=== PATIENT | female | born 1980 | race Caucasian/White ===

== ENCOUNTER → 2017-09-22 11:42 | Outpatient (CLI) | payer OTHER, SELFPAY ==
[2017-09-22 16:15] LABS: ALB/GLOB Ratio 1.1 RATIO (0.9-2.4); AST(SGOT) 26 U/L (15-37); Alanine Aminotransfer ALT/SGPT 37 U/L (13-56); Albumin, Serum 3.7 g/dL (3.2-5.0); Alkaline Phosphatase 89 U/L (45-117); Anion Gap 9 (5-15); BUN 8 mg/dL (7-18); BUN/Creat Ratio 9.4 RATIO (10-20); Calcium,Total 8.9 mg/dL (8.5-10.1); Chloride 106 mmol/L (98-107); Creatinine, Serum 0.85 mg/dL (0.55-1.02); EST Glomerular Filtration Rate 79 mL/min (>60); Est Glom Filt Rate - Afr Amer 96 mL/min (>60); Globulin 3.5 g/dL (2.2-4.2); Glucose 93 mg/dL (74-106); Lipase 196 U/L (73-393); Potassium 4.2 mmol/L (3.5-5.1); Protein, Total 7.2 g/dL (6.4-8.2); Sodium Level 140 mmol/L (136-145)
== END ==
PROVIDERS: Family Provider Family Medicine; PCP Family Medicine; Visit Provider Family Medicine
DX: K57.92 Diverticulitis of intestine, part unspecified, without perforation or abscess without bleeding (principal); R19.7 Diarrhea, unspecified; R10.9 Unspecified abdominal pain
CPT/HCPCS: 36415; 80053; 83690

== ENCOUNTER → 2017-09-28 16:42 | Outpatient (CLI) | payer OTHER, SELFPAY ==
[2017-09-28 17:57] LABS: Absolute Lymphocyte Count 2.94 X10^3/ul (0.83-4.51); Absolute Neutrophil Count 4.1 X10^3/uL (2.0-7.7); Basophil# 0.02 X10^3/uL; Basophil% 0.3 % (0-1); Eosinophil# 0.12 X10^3/uL; Eosinophils% 1.5 % (0-5); Hematocrit 38.3 % (37-47); Hemoglobin 12.2 g/dl (12.0-15.0); Lymphocyte # 2.94 X10^3/ul (4.0); Lymphocyte % 37.2 % (19-41); Mean Corp Hgb Conc 31.9 g/gl (32-36); Mean Corpuscular Hgb 28.4 pg (27.0-32.0); Mean Corpuscular Volume 89.3 fL (81-99); Mean Platelet Vol. 10.5 fl (6.2-12.0); Monocyte# 0.68 X10^3/uL; Monocyte% 8.6 % (0-10); Neutrophil # 4.14 X10^3/uL (2.7-7.7); Neutrophil % 52.4 % (47-70); POSITIVE COUNT NO; POSITIVE DIFFERENTIAL NO; POSITIVE MORPHOLOGY NO; Platelet Count 245 K/mm3 (150-450); RBC Distribution Width CV 13.1 % (11.6-14.6); RBC Distribution Width SD 42.1 fl (35.1-43.9); Red Blood Count 4.29 M/mm3 (4.2-5.4); White Blood Count 7.9 K/mm3 (4.4-11.0)
== END ==
PROVIDERS: Family Provider Family Medicine; PCP Family Medicine; Visit Provider Family Medicine
DX: R19.7 Diarrhea, unspecified (principal); R10.9 Unspecified abdominal pain
CPT/HCPCS: 36415; 85025

== ENCOUNTER → 2017-10-03 14:14 | Outpatient (CLI) | payer OTHER, SELFPAY ==
--- NOTE | 2017-10-03 14:16 | CT_ITS ---
STUDY: CT ABDOMEN AND PELVIS WITH CONTRAST REASON FOR EXAM: Female, 37 years old. Abdominal pain. History of diverticulitis. RADIATION DOSAGE (If Supplied By Facility): CTDIvol = ( 18.72 ) mGy, DLP = ( 1316.17 ) mGycm TECHNIQUE: Transaxial images were obtained from the dome of the diaphragm to the symphysis pubis with oral contrast. 100ML ml of Isovue 300 contrast was administered. Sagittal and coronal images were reconstructed. Individualized dose optimization techniques were used for this CT. COMPARISON: Comparison is made with prior study dated June 21, 2016. FINDINGS: The visualized lung bases are unremarkable. The visualized portions of the heart are within normal limits. There is decreased attenuation of the liver consistent with steatosis. Normal gallbladder and extrahepatic biliary system. Normal spleen. Normal pancreas. Normal bilateral adrenal glands. Normal right kidney. Normal left kidney. Moderate sized hiatal hernia. Normal small intestine. There are multiple colonic diverticula consistent with diverticulosis. The appendix is visualized and appears normal. Normal abdominal aorta. Normal inferior vena cava. Normal retroperitoneum. Normal urinary bladder. There is evidence of prior bilateral tubal ligation. Normal abdominal wall. Normal osseous structures. CT/Abdomen/Pelvis WITH Contrast IMPRESSION: Fatty infiltration of the liver. Sigmoid diverticulosis. No acute inflammation is seen. Electronically Signed: Alphonso Mcgovern MD at 9:51 EST Tel [phone], Service support ,
== END ==
PROVIDERS: Family Provider Family Medicine; PCP Family Medicine; Visit Provider Family Medicine
DX: K57.30 Diverticulosis of large intestine without perforation or abscess without bleeding (principal); R10.9 Unspecified abdominal pain; R11.0 Nausea; R19.7 Diarrhea, unspecified
CPT/HCPCS: 74177; Q9967

== ENCOUNTER → 2017-11-25 16:26 | Outpatient (CLI) | payer MEDICAID, SELFPAY ==
--- NOTE | 2017-11-25 16:31 | RAD_ITS ---
STUDY: X-RAY CHEST REASON FOR EXAM: Female, 37 years old. Cough. Shortness of breath. TECHNIQUE: PA and lateral views of the chest. COMPARISON: January 13, 2017 FINDINGS: The lungs are clear and expanded. There is no demonstrated pleural abnormality. Normal size heart. Normal mediastinum and giuseppe. Normal visualized pulmonary arteries. Normal visualized aortic arch and descending thoracic aorta. Normal visualized thoracic spine. Normal visualized ribs, clavicles, and shoulders. There is no demonstrated abnormality of the visualized soft tissue structures of the upper abdomen. RAD/Chest PA and Lateral IMPRESSION: No acute cardiopulmonary process. Electronically Signed: Jyoti Dewitt MD at 17:08 EDT Tel , Service support ,
== END ==
PROVIDERS: Family Provider Family Medicine; PCP Family Medicine; Visit Provider Physician Assistant Surgical
DX: R06.02 Shortness of breath (principal); R06.00 Dyspnea, unspecified; R09.89 Other specified symptoms and signs involving the circulatory and respiratory systems
CPT/HCPCS: 71046

== ENCOUNTER → 2018-01-11 21:04 | Outpatient (CLI) | payer MEDICAID, SELFPAY | PROVIDERS: Family Provider Family Medicine; PCP Family Medicine; Visit Provider Family Medicine | DX: G47.30 Sleep apnea, unspecified (principal) | CPT/HCPCS: 95810 ==

== ENCOUNTER → 2018-09-28 09:11 | Outpatient (CLI) | payer OTHER, SELFPAY ==
[2018-10-04 11:08] LABS: HPV Reflexed? NOT INDICATED
== END ==
PROVIDERS: Family Provider Family Medicine; PCP Family Medicine; Visit Provider Obstetrics & Gynecology
DX: Z12.4 Encounter for screening for malignant neoplasm of cervix (principal)
CPT/HCPCS: 88175; G0145

== ENCOUNTER → 2018-10-04 08:33 | Outpatient (CLI) | payer OTHER, SELFPAY ==
--- NOTE | 2018-10-04 08:35 | RAD_ITS ---
STUDY: X-RAY - ESOPHAGUS (BARIUM SWALLOW) WITH FLUOROSCOPY REASON FOR EXAM: Female, 38 years old. Dysphagia for solids. TECHNIQUE: 17 view(s) of the esophagus were obtained following swallowing of barium. FLUOROSCOPY TIME (if supplied): (0:22) minutes/seconds COMPARISON: None. FINDINGS: There is no demonstrated esophageal foreign body. There is no demonstrated stricture or mucosal abnormality. There is a small hiatal hernia of the fundus of the stomach. The patient ingested a 12 mm tablet of barium without any difficulty. Normal visualized aortic arch and descending thoracic aorta. Normal visualized pulmonary parenchyma. Normal visualized osseous structures of the thorax. RAD/Esophagus Only IMPRESSION: Small sliding hiatal hernia without gastroesophageal reflux. Electronically Signed: Alphonso Mcgovern MD at 12:49 EST , Service support ,
== END ==
LOC: RAD 08:33
PROVIDERS: Family Provider Family Medicine; PCP Family Medicine; Referring Provider Internal Medicine Gastroenterology; Visit Provider Internal Medicine Gastroenterology
DX: R13.10 Dysphagia, unspecified (principal)
CPT/HCPCS: 74220

== ENCOUNTER → 2018-10-06 09:43 | Outpatient (CLI) | payer OTHER, SELFPAY ==
[2018-10-06 11:14] LABS: Estradiol 23.5 pg/mL; Follicle Stimulating Hormone 7.9 mIU/mL
[2018-10-12 12:46] LABS: Anti-Mullerian Hormone,Serum 0.445 ng/mL (.)
== END ==
LOC: LAB.FUTURE 09:43
PROVIDERS: Visit Provider Obstetrics & Gynecology
DX: Z30.09 Encounter for other general counseling and advice on contraception (principal); Z31.69 Encounter for other general counseling and advice on procreation; N92.6 Irregular menstruation, unspecified
CPT/HCPCS: 36415; 82670; 83001; 83516

== ENCOUNTER → 2019-07-31 12:41 | Outpatient (CLI) | payer OTHER, SELFPAY ==
[2019-06-26 15:10] VITALS: BMI 44.5
--- NOTE | 2019-08-02 07:45 | PFT ---
INTRODUCTION: The patient is a 38-year-old female that presents for pulmonary function studies secondary to a diagnosis of shortness of breath. Respiratory therapy reports good patient effort. Bronchodilators were used during testing. INTERPRETATION: Forced expiration spirometry demonstrates no evidence of a large airways obstructive ventilatory defect. Although there was no significant response to aerosolized bronchodilators, based upon strict ATS criteria, the patient did have a rather robust mid flow bronchodilator response. Spirograms are of good quality and plateau normally. Body plus tomography was performed and reveals an elevated TLC to 116% of predicted. Diffusing capacity by single breath CO is at the lower limits of normal. IMPRESSION: Subtle findings of possible small airways disease with significant mid flow bronchodilator response.
== END ==
PROVIDERS: Family Provider Family Medicine; PCP Family Medicine; Referring Provider Nurse Practitioner Acute Care; Visit Provider Nurse Practitioner Acute Care
DX: R06.02 Shortness of breath (principal)
CPT/HCPCS: 94060; 94726; 94729

== ENCOUNTER → 2019-07-31 20:00 | Outpatient (CLI) | payer OTHER, SELFPAY ==
[2019-06-26 15:10] VITALS: BMI 44.5
== END ==
PROVIDERS: Family Provider Family Medicine; PCP Family Medicine; Referring Provider Nurse Practitioner Acute Care; Visit Provider Nurse Practitioner Acute Care
DX: G47.33 Obstructive sleep apnea (adult) (pediatric) (principal)
CPT/HCPCS: 95811

== ENCOUNTER → 2019-08-10 15:23 | Outpatient (CLI) | payer OTHER, SELFPAY ==
[2019-08-02 15:39] VITALS: BMI 44.5
--- NOTE | 2019-08-10 15:24 | ECHOD_ITS ---
Reason For Study: Dyspnea/SOB Procedure This was a 2D Doppler, Color Flow transthoracic echocardiogram. Exam performed in department. Left Ventricle Normal size and thickness. The estimated ejection fraction is 75 %. Normal diastology for age. No regional wall motion abnormalities noted. Right Ventricle Normal size and thickness. Normal systolic function. Atria Normal left atrium. Normal right atrium. Normal atrial septum. Mitral Valve The mitral valve is structurally normal. No prolapse or stenosis seen. Tricuspid Valve Normal tricuspid valve. Trivial tricuspid valve insufficiency. Unable to estimate RV systolic pressure due to insufficient tricuspid regurgitant envelope. Aortic Valve Normal aortic valve. Trisinus/trileaflet aortic valve. Pulmonic Valve Normal pulmonic valve. Great Vessels Normal aortic root. Normal arch. Normal inferior vena cava. Inferior vena cava collapse with sniff. Pericardium/Pleural No pericardial effusion. MMode/2D Measurements & Calculations LVIDd: 3.9 cm IVSd: 1.0 cm Ao root diam: 3.6 cm LVIDs: 2.0 cm LVPWd: 1.1 cm LA dimension: 3.4 cm FS: 47.8 % LAV(MOD-bp): 65.9 ml LA A4 area: 21.0 cm2 RA A4 area: 12.3 cm2 LAV(MOD-bp) Indexed: 26.8 ml/m2 LAV(MOD-sp2): 61.1 ml LAV(MOD-sp4): 67.1 ml Time Measurements MV dec time: 0.23 sec Doppler Measurements & Calculations MV E max walt: 99.8 cm/sec Lat Peak E' Walt: 14.5 cm/sec Med Peak E' Walt: 10.6 cm/sec MV A max walt: 78.6 cm/sec E/E' lat: 6.9 E/E' med: 9.4 MV E/A: 1.3 MV V2 max: 111.7 cm/sec MV P1/2t max walt: 116.5 cm/sec Ao V2 max: 111.7 cm/sec MV max P.0 mmHg MV P1/2t: 115.8 msec Ao max P.0 mmHg MV V2 mean: 64.1 cm/sec MV dec slope: 294.8 cm/sec2 Ao V2 mean: 75.8 cm/sec MV mean P.9 mmHg MVA(P1/2t): 1.9 cm2 Ao mean P.6 mmHg MV V2 VTI: 30.9 cm Ao V2 VTI: 23.2 cm LV V1 max: 110.6 cm/sec PA V2 max: 104.0 cm/sec LV V1 max P.9 mmHg LV V1 mean P.4 mmHg LV V1 mean: 73.5 cm/sec LV V1 VTI: 23.5 cm Interpretation Summary The estimated ejection fraction is 75 %. Trivial tricuspid valve insufficiency. Unable to estimate RV systolic pressure due to insufficient tricuspid regurgitant envelope. Normal diastology for age. There is no comparison study available. Ordering Physician: Aditi Zamorano Referring Physician: Fitz Casillas Performed By: Chino Foster RCS
== END ==
PROVIDERS: Family Provider Family Medicine; PCP Family Medicine; Referring Provider Nurse Practitioner Acute Care; Visit Provider Nurse Practitioner Acute Care
DX: R06.02 Shortness of breath (principal)
CPT/HCPCS: 93306

== ENCOUNTER → 2019-08-22 14:03 | Outpatient (CLI) | payer OTHER, SELFPAY ==
[2019-08-02 15:39] VITALS: BMI 44.5
== END ==
PROVIDERS: Family Provider Family Medicine; PCP Family Medicine; Referring Provider Nurse Practitioner Acute Care; Visit Provider Nurse Practitioner Acute Care
DX: G47.33 Obstructive sleep apnea (adult) (pediatric) (principal)

== ENCOUNTER → 2019-10-24 15:31 | Outpatient (CLI) | payer OTHER, SELFPAY ==
[2019-10-24 14:51] VITALS: BMI 44.5
[2019-10-24 16:13] LABS: Absolute Neutrophil Count 4.2 X10^3/uL (2.0-7.7); Basophil# 0.02 X10^3/uL; Basophil% 0.2 % (0-1); Eosinophil# 0.12 X10^3/uL; Eosinophils% 1.5 % (0-5); Hematocrit 37.6 % (37-47); Hemoglobin 12.2 g/dL (12.0-15.0); Lymphocyte % 38.9 % (19-41); Mean Corp Hgb Conc 32.4 g/dL (32-36); Mean Corpuscular Hgb 28.9 pg (27.0-32.0); Mean Corpuscular Volume 89.1 fL (81-99); Mean Platelet Vol. 9.7 fl (6.2-12.0); Monocyte# 0.67 X10^3/uL; Monocyte% 8.2 % (0-10); NRBC Flagged by Analyzer 0 % (0-5); Neutrophil # 4.19 X10^3/uL (2.7-7.7); Platelet Count 259 K/mm3 (150-450); RBC Distribution Width CV 12.7 % (11.6-14.6); RBC Distribution Width SD 41.5 fl (35.1-43.9); Red Blood Count 4.22 M/mm3 (4.2-5.4); White Blood Count 8.2 K/mm3 (4.4-11.0)
[2019-10-24 16:32] LABS: Thyroid Stim Hormone (TSH) 1.03 uIU/mL (0.358-3.74)
[2019-10-29 11:54] LABS: HPV APTIMA, High Risk Negative (Negative)
[2019-10-29 20:05] LABS: Vitamin D 1,25-Dihydroxy 19.3 pg/mL (19.9-79.3)
== END ==
PROVIDERS: PCP Family Medicine; Referring Provider Nurse Practitioner Women's Health; Visit Provider Nurse Practitioner Women's Health
DX: R53.83 Other fatigue (principal); Z12.4 Encounter for screening for malignant neoplasm of cervix
CPT/HCPCS: 36415; 82652; 84443; 85025; 87624; 88175; G0145

== ENCOUNTER → 2019-10-29 14:53 | Outpatient (CLI) | payer OTHER, SELFPAY ==
[2019-10-24 14:51] VITALS: BMI 44.5
--- NOTE | 2019-10-29 14:54 | BI_ITS ---
MAMMOGRAPHY - BILATERAL SCREENING REASON FOR EXAM: Female, 39 years old. Routine annual screening examination. PERTINENT HISTORY: Grandmother with breast cancer. TECHNIQUE: Digital bilateral breast elvira (3D mammographic acquisition) in the CC and MLO projections. 2-D mediolateral oblique (MLO) and craniocaudad (CC) views of both breasts were obtained. CAD: Full Field Digital Mammography with Computer Added Detection was performed. COMPARISON: Comparison is made with prior study of January 24, 2015. FINDINGS: Breast Composition: The breasts are heterogeneously dense, which may obscure small masses. There are no dominant masses or suspicious calcifications. No other significant abnormalities are identified. There has been no significant change since the prior study. BI/SCREEN MAMM (CAD) W/ELVIRA BILAT IMPRESSION: Stable bilateral screening mammogram. Yearly follow-up mammogram recommended. (A) ASSESSMENT CATEGORY: BIRADS Category 1: Negative. A letter regarding these results will be sent to the patient by the facility within 30 days. Approximately 10% of breast cancers are not detected by mammography. A normal mammogram should not delay biopsy of a clinically suspicious abnormality. [id number] Electronically Signed: Alphonso Mcgovern, at 8:06 EDT , Service support ,
== END ==
PROVIDERS: PCP Family Medicine; Referring Provider Nurse Practitioner Women's Health; Visit Provider Nurse Practitioner Women's Health
DX: Z12.31 Encounter for screening mammogram for malignant neoplasm of breast (principal)
CPT/HCPCS: 77063; 77067

== ENCOUNTER 2019-12-13 18:03 | Emergency (ER) | payer OTHER, SELFPAY ==
[2019-10-24 14:51] VITALS: BMI 44.5
[2019-12-13 18:04] VITALS: BP 163/96; PULSE 99; RESP 16; TEMP 36.7; O2SAT 96; BMI 45.1
--- NOTE | 2019-12-13 18:33 | ED.DCSUM_ITS ---
History of Present Illness Chief Complaint: Wound Check Informant: Patient Onset: Yesterday Narrative: Patient had reversal of prior tubal ligation performed on November 21 in [place]. Patient state her wounds have been healing well. Yesterday she rolled over in bed and felt a pop along her incision. She is had some clear drainage from the wound and wanted to be sure it was not infected. She denies fever or chills. - Past Medical History (1) Asthma Status: Chronic (2) ZULAY (obstructive sleep apnea) Status: Chronic (3) Asthma Status: Chronic (4) Hx of section Status: Resolved Past Medical History - Allergies and Home Meds Allergies/Adverse Reactions: Allergies cephalexin [From Keflex] Allergy (Verified 12/13/19 18:10) Hives tree nut Allergy (Verified 12/13/19 18:08) Anaphylaxis venom-honey bee Allergy (Verified 12/13/19 18:08) Anaphylaxis meperidine HCl [From Demerol] Adverse Reaction (Verified 12/13/19 18:08) Unknown Primary Care Physician: Fitz Casillas MD [Primary Care Provider] - Prior records reviewed: Yes Lives: With Family Smoking Status: Current every day smoker Review of Systems General: Denies: Chills, Fever Eyes: Denies: Visual changes - bilaterally ENT: Denies: Bilateral ear pain Cardiovascular: Denies: Chest pain Respiratory: Denies: Dyspnea Gastrointestinal: Denies: Abdominal pain, Nausea, Vomiting, Diarrhea Genitourinary: Denies: Dysuria Skin: Reports: Wounds Neurological: Denies: Headache Allergy: Denies: Uticaria Physical Exam Vital Signs/Narrative: Vital Signs Temp Pulse Resp BP Pulse Ox 12/13/19 18:04 98.1 F 99 16 163/96 H 96 Inital Vital Signs reviewed: Yes General: Well nourished, Well developed Head: Normocephalic ENT: Moist mucous membranes Neck: Supple Cardiovascular: Regular rate, Regular rhythm Respiratory: No distress, CTA bilaterally Abdomen: Soft, Nontender, - - Is worse lower abdominal surgical wound. On the left side of this is a small area of wound dehiscence, measuring approximate 1/2 cm in length. There is serosanguineous drainage from the wound. No surrounding erythema or tenderness. No palpable masses. Extremities: Nontender Neurological: Alert, Oriented x3 Diagnostic/Tx/Re-eval - Medical Decision Making Stat ultrasound was performed myself. I do not see any collection of fluid in the tissues around this area. Fluid that is draining is serosanguineous at this time. Patient be covered with doxycycline and she does have Keflex and penicillin allergy. She will follow-up with her [facility] AIDE or return for any worsening symptoms or concerns. ED Disposition - Plan for ED Patient: Disposition: Home or Assisted Living Diagnosis: Wound dehiscence Instructions: ED Wound Check Post Op No Infec Prescriptions: Doxycycline 100 mg PO BID #20 cap Transmission Status: Pending to [facility] Referrals: Liliana Newell MD [STAFF PHYSICIAN] - 1 Week
[2019-12-13] MEDS: Doxycycline 100 MG CAPSULE PO (18:44)
== END 2019-12-13 19:06 | disposition home or self-care (01) ==
LOC: ED 18:47
PROVIDERS: Emergency Provider Emergency Medicine; PCP Family Medicine
DX: T81.30XA Disruption of wound, unspecified, initial encounter (principal); G47.33 Obstructive sleep apnea (adult) (pediatric); J45.909 Unspecified asthma, uncomplicated; F17.200 Nicotine dependence, unspecified, uncomplicated
CPT/HCPCS: 99283

== ENCOUNTER → 2019-12-21 13:52 | Outpatient (CLI) | payer OTHER, SELFPAY ==
[2019-12-21 12:20] VITALS: BMI 44.3
[2019-12-21 15:15] LABS: hCG Titer Quant., Serum 46 mIU/mL (1-3)
== END ==
PROVIDERS: PCP Family Medicine; Visit Provider Obstetrics & Gynecology
DX: N91.2 Amenorrhea, unspecified (principal)
CPT/HCPCS: 36415; 84702

== ENCOUNTER → 2019-12-24 15:57 | Outpatient (CLI) | payer OTHER, SELFPAY ==
[2019-12-21 12:20] VITALS: BMI 44.3
[2019-12-24 17:09] LABS: hCG Titer Quant., Serum 109 mIU/mL (1-3)
== END ==
PROVIDERS: PCP Family Medicine; Referring Provider Obstetrics & Gynecology; Visit Provider Obstetrics & Gynecology
DX: N91.2 Amenorrhea, unspecified (principal); N97.0 Female infertility associated with anovulation
CPT/HCPCS: 36415; 84702

== ENCOUNTER 2020-01-04 12:30 | Outpatient (RCR) | payer OTHER, SELFPAY ==
[2019-12-21 12:20] VITALS: BP 163/88; PULSE 72; RESP 16; TEMP 36.9; BMI 44.3
--- NOTE | 2019-12-21 16:00 | HP.PCM_ITS ---
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 Current Visit: Yes Code(s): T14.8XXA - Other injury of unspecified body region, initial encounter (2) Cellulitis, abdominal wall Status: Acute Current Visit: Yes Code(s): L03.311 - Cellulitis of abdominal wall (3) Seroma after procedure Status: Chronic Current Visit: Yes (4) Status: Acute Current Visit: Yes Qualifiers: Weeks of gestation: less than 8 weeks Qualified Code(s): Z3A.01 - Less than 8 weeks gestation of Code(s): Z34.90 - Encounter for supervision of normal , unspecified, unspecified trimester (5) Hx of section Status: Chronic Current Visit: Yes Code(s): Z98.891 - History of uterine scar from previous surgery (6) Obesity Status: Acute Current Visit: Yes Qualifiers: Obesity classification: adult class 3 (BMI >= 40) Serious obesity comorbidity presence: without serious comorbidity Body mass index: BMI 40.0- 44.9 Code(s): E66.9 - Obesity, unspecified History of Present Illness Date of Service: 12/21/19 Chief Complaint: surgical wound dehiscence left lower abdomen s/p tubal ligation reversal with seroma History of Wound: Jing is a very nice 39 yo woman that presents to the wound care center for evaluation and treatment of a nonhealing surgical wound dehiscence s/p tubal ligation reversal on November 22, 2019 in [place]. She was healing well until December 10, 2019 when she noticed a popping sensation when she rolled over in bed and noted the wound became a little red and swollen and tender and then opened the following day and started draining serous drainage. She went to the [facility] ER and was evaluated on December 13, 2019 and was started on doxycycline by the ER physician. They did an US of the lower abdomen looking for abscess but did not appreciate any fluid collection. She contacted her PCP who referred her to the wound center for evaluation and treatment on December 14, 2019. She has been using a maxi pad for dressing but has had a difficult time keeping a dressing in place. She was letting it open to air at night. There is a moderate amount of serous drainage but has been no odor or erythema or fever or chills or purulent drainage noted. She tested positive for on December 17, 2019 and stopped the doxycycline due to the potential teratogenic effects on and contacted her PCP regarding possible change of antibiotics and had not been contacted by wound center regarding referral. Her PCP office called wound center today December 21, 2019 to check on referral and unfortunately referral was not received but they scheduled her to be seen today for evaluation. She has not had any vaginal bleeding or cramping and has not taken any medication since finding out that she was . 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 (Chronic) Seroma after procedure (Chronic) Cancer (Chronic) melanoma SOB (shortness of breath) (Chronic) Fatigue (Chronic) Asthma (Chronic) Hx of section (Chronic) Asthma (Chronic) ZULAY (obstructive sleep apnea) (Chronic) Allergies/Adverse Reactions: Allergies cephalexin [From Keflex] Allergy (Verified 12/13/19 18:10) Hives tree nut Allergy (Verified 12/13/19 18:08) Anaphylaxis venom-honey bee Allergy (Verified 12/13/19 18:08) Anaphylaxis meperidine HCl [From Demerol] Adverse Reaction (Verified 12/13/19 18:08) Unknown Home Medications: Ambulatory Orders Medication Instructions Recorded albuterol sulfate 90 mcg/actuation 2 puff INHALATION Q4H PRN #18 g 08/02/19 aerosol inhaler biotin 1,000 mcg chewable tablet 1,000 mcg PO DAILY 10/24/19 ferrous fumarate 89 mg (29 mg 89 mg PO TID 10/24/19 iron) tablet magnesium 30 mg tablet 30 mg PO DAILY 10/24/19 mecobalamin (vitamin B12) 1,000 1,000 mcg PO DAILY 10/24/19 mcg chewable tablet pantoprazole 40 mg tablet,delayed 40 mg PO DAILY 10/24/19 release vit 112-iron 3.33 3 tab PO DAILY 10/24/19 mg-folate 0.33 [id number] chew tablet acyclovir 400 mg tablet 400 mg PO DAILY #90 tab 10/29/19 Doxycycline 100 mg PO BID #20 cap 12/13/19 - Family History Maternal Family History: Family History (Last Reviewed 10/24/19 @ 14:51 by Jolly Mcdonnell) Father Sleep apnea No pertinent history Paternal Family History: Family History (Last Reviewed 10/24/19 @ 14:51 by Jolly Mcdonnell) Father Sleep apnea No pertinent history Lives: Spouse/ Significant Other Smoking Status: Former smoker Tobacco Use: Non-smoker Alcohol: None Drugs: None Review of Systems Constitutional: Denies: Chills, Fever, Weight Change Eyes: Denies: Pain, Vision Change HEENT: Denies: Difficulty Hearing, Difficulty Swallowing, Sinus Congestion Cardiovascular: Denies: Chest Pain, Palpitations Respiratory: Denies: Cough, Shortness of Breath Gastrointestinal: Denies: Abdominal Pain, Diarrhea, Nausea, Vomiting Genitourinary: Denies: Dysuria, Hematuria Gynecological: Denies: Vaginal bleeding Skin: Reports: Wounds Endocrine: Denies: Heat/ Cold Intolerance, Polydipsia, Polyuria Hematologic/ Lymphatic: Denies: Easy Bruising, Easy Bleeding - Physical Exam Vital Signs Temp Pulse Resp BP 98.5 F 72 16 163/88 H 12/21/19 12:20 12/21/19 12:20 12/21/19 12:20 12/21/19 12:20 General: Alert, Oriented x3, Cooperative, No apparent distress HEENT: Atraumatic, Normocephalic Oral: Moist Mucosa Neck: Supple Lungs: Clear to auscultation Cardiovascular: Regular rate, Regular Rhythm Abdomen: Soft, Non Tender, Obese Extremities: No edema Skin: Ulcer/ Wound Wound Measurements and Assessment WC - Nurse 1 - General Ulcer Measurement Start: 12/21/19 12:17 Freq: Status: Active Protocol: Activity Type Activity Date Activity User E-Sign Co-Sign Detail Recorded Client Recorded Date Recorded By Document 12/21/19 12:20 MW [id number] 12/21/19 12:31 MW 12/21/19 12:20 Wound Center Nurse 1 [Ulcer Assessment] #1 Lower Abd -Combined with other wound No -Current Size (cm) - Length 0.7 -Current Size (cm) - Width 1.4 -Current Size (cm) - Depth 0.1 -Total Square Cm 0.98 -Date of Last Picture (Recall this 12/21/19 field) -Photo Taken Yes -Epithelialization None Present -Tunneling No -Undermining/Tunneling No -Circular Undermining No -Exudate Amt Large -Exudate Type Serosanguineous -Wound Margin Flat & Intact -Granulation Amt Large (67-100%) -Granulation Quality Red -Slough/Fibrin Yes -Necrosis Amt Small (1-33%) -Necrotic Tissue Type Adherent Slough -Structure Exposed N/A -Texture (Paty-wound Skin Appearance) Assessed, Scarring -Moisture (Paty-wound Skin Appearance No Abnormality, ) Assessed -Color (Paty-wound Skin Appearance) No Abnormality, Assessed -Temperature (Paty-wound Skin No Abnormality Appearance) (Pt Warm) -Tenderness on Palpation (Paty-wound Yes Skin Appearance) -Ulcer Cleansing Rinsed/ Irrigated with Saline -Foul Odor after Cleansing No -Anesthetic Used 4% Lidocaine Solution [Edema Assessment] -Lower Limb Edema Present No Psych/Mental Status: Normal Affect, Appropriate Debridement Note post-debridement measurements Length 0.5 cm Width 1.3 cm Depth 2.0 cm Total square cm 0.65 cm^2 Wound debrided: left lower abdomen Laterality: Right Type of Debridement: Excisional debridement Anesthesia Used: 4% Lidocaine Solution, 5% Lidocaine Gel Depth: Down to and including healthy tissue, in the subcutaneous layer Percentage of wound debrided: 100 Instrument Used: 3mm curette, Forceps Tissue Removed: Low slough, devitalized tissue, undissolved sutures Severity: Fat Layer Exposed Amount of bleeding with debridement: Mild Bleeding Controlled with: Compression and gauze Patient tolerated procedure well Assessment/Plan Active Problems (Last Reviewed 10/24/19 @ 14:51 by Jolly Mcdonnell) 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 Plan: Jing's wound was evaluated and debrided today. 2 suture pieces that were visible and had not dissolved were removed. A wound culture was performed and will treat based upon results. There was no obvious signs of infection and the drainage was serous in nature. Will pack the wound with Aquacel extra and cover with gauze and an ABD and change once-twice daily based upon the amount of drainage and if the bandage is soiled. Encouraged to call sooner if increased drainage, odor, fever or chills develop. Will follow up in 1 week for re- evaluation.
[2019-12-28 12:18] VITALS: BP 134/83; PULSE 84; RESP 18; TEMP 36.7; BMI 44.3
--- NOTE | 2019-12-28 17:54 | PCM.WC.PN ---
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 Current Visit: Yes Code(s): T14.8XXA - Other injury of unspecified body region, initial encounter (2) Cellulitis, abdominal wall Status: Acute Current Visit: Yes Code(s): L03.311 - Cellulitis of abdominal wall (3) Seroma after procedure Status: Chronic Current Visit: Yes (4) Status: Acute Current Visit: Yes Qualifiers: Weeks of gestation: less than 8 weeks Qualified Code(s): Z3A.01 - Less than 8 weeks gestation of Code(s): Z34.90 - Encounter for supervision of normal , unspecified, unspecified trimester (5) Hx of section Status: Chronic Current Visit: Yes Code(s): Z98.891 - History of uterine scar from previous surgery (6) Obesity Status: Chronic Current Visit: Yes Qualifiers: Obesity type: unspecified obesity type Obesity classification: adult class 3 (BMI >= 40) Serious obesity comorbidity presence: without serious comorbidity Body mass index: BMI 40.0-44.9 Qualified Code(s): E66.01 - Morbid (severe) obesity due to excess calories; Z68.41 - Body mass index (BMI) 40.0-44.9, adult Code(s): E66.9 - Obesity, unspecified Type of Wound Date of Service: 12/28/19 Chief Complaint: surgical wound dehiscence left lower abdomen s/p tubal ligation reversal with seroma History of Wound: Jing is a very nice 39 yo woman that presents to the wound care center for evaluation and treatment of a nonhealing surgical wound dehiscence s/p tubal ligation reversal on November 22, 2019 in [place]. She was healing well until December 10, 2019 when she noticed a popping sensation when she rolled over in bed and noted the wound became a little red and swollen and tender and then opened the following day and started draining serous drainage. She went to the [facility] ER and was evaluated on December 13, 2019 and was started on doxycycline by the ER physician. They did an US of the lower abdomen looking for abscess but did not appreciate any fluid collection. She contacted her PCP who referred her to the wound center for evaluation and treatment on December 14, 2019. She has been using a maxi pad for dressing but has had a difficult time keeping a dressing in place. She was letting it open to air at night. There is a moderate amount of serous drainage but has been no odor or erythema or fever or chills or purulent drainage noted. She tested positive for on December 17, 2019 and stopped the doxycycline due to the potential teratogenic effects on and contacted her PCP regarding possible change of antibiotics and had not been contacted by wound center regarding referral. Her PCP office called wound center today December 21, 2019 to check on referral and unfortunately referral was not received but they scheduled her to be seen today for evaluation. She has not had any vaginal bleeding or cramping and has not taken any medication since finding out that she was . Progress of Wound: Jing is here for follow up of a surgical wound dehiscence. She is tolerating Aquacel extra packing into the wound and has noticed a little less drainage. Her wound culture was positive for anaerobic bacteria. She denies any increased drainage, odor, pain or erythema. - Physical Exam Vital Signs Temp Pulse Resp BP 98.0 F 84 18 134/83 H 12/28/19 12:18 12/28/19 12:18 12/28/19 12:18 12/28/19 12:18 General: Alert, Oriented x3, Cooperative, No apparent distress HEENT: Atraumatic, Normocephalic Oral: Moist Mucosa Neck: Supple Abdomen: Soft, Non Tender, Obese Skin: Ulcer/ Wound Wound Measurements and Assessment WC - Nurse 1 - General Ulcer Measurement Start: 12/21/19 12:17 Freq: Status: Active Protocol: Activity Type Activity Date Activity User E-Sign Co-Sign Detail Recorded Client Recorded Date Recorded By Document 12/28/19 12:18 MW [id number] 12/28/19 12:25 MW 12/28/19 12:18 Wound Center Nurse 1 [Ulcer Assessment] #1 Lower Abd -Combined with other wound No -Current Size (cm) - Length 0.6 -Current Size (cm) - Width 1.0 -Current Size (cm) - Depth 0.1 -Total Square Cm 0.60 -Photo Taken No -Epithelialization Small 1-33% -Tunneling No -Undermining/Tunneling No -Circular Undermining No -Exudate Amt Small -Exudate Type Serous -Wound Margin Flat & Intact -Granulation Amt Large (67-100%) -Granulation Quality Marcus -Slough/Fibrin Yes -Necrosis Amt Small (1-33%) -Necrotic Tissue Type Adherent Slough -Structure Exposed N/A -Texture (Paty-wound Skin Appearance) Assessed, Scarring -Moisture (Paty-wound Skin Appearance No Abnormality, ) Assessed -Color (Paty-wound Skin Appearance) No Abnormality, Assessed -Temperature (Paty-wound Skin No Abnormality Appearance) (Pt Warm) -Tenderness on Palpation (Paty-wound Yes Skin Appearance) -Ulcer Cleansing Rinsed/ Irrigated with Saline -Foul Odor after Cleansing No -Anesthetic Used 5% Lidocaine Gel [Edema Assessment] -Lower Limb Edema Present No WC - Nurse 2 - General Ulcer CM Notes Start: 12/21/19 12:17 Freq: Status: Active Protocol: Activity Type Activity Date Activity User E-Sign Co-Sign Detail Recorded Client Recorded Date Recorded By Document 12/28/19 13:29 MW [id number] 12/28/19 13:38 MW 12/28/19 13:29 Wound Center Nurse 2 [Procedure/Treatment] #1 Lower Abd -Time 13:30 -Correct Patient Yes -Correct Side, Site, Position Yes -Correct Procedure Yes -Procedure Performed Yes -Type of Procedure Debridement -Clinical Debridement Subcutaneous -Post Debridement Size (cm) - Length 0.5 -Post Debridement Size (cm) - Width 0.7 -Post Debridement Size (cm) - Depth 1.7 -Total Square Cm 0.35 -Wound/Ulcer Outcome Not Healed -Ulcer Cleansing Rinsed/ Irrigated with Saline -Foul Odor after Cleansing No -Bioengineered Tissue No -Bleeding Controlled with Pressure -Offloading No -Treatment Response Procedure Tolerated Well [See Physician Procedure note for Specifics] Pain Scale: 0-10 Numeric [Pain] -Is Patient Pain Free? Yes Psych/Mental Status: Normal Affect, Appropriate Debridement Note Post-Debridement Measurements/Treatment WC - Nurse 2 - General Ulcer CM Notes Start: 12/21/19 12:17 Freq: Status: Active Protocol: Activity Type Activity Date Activity User E-Sign Co-Sign Detail Recorded Client Recorded Date Recorded By Document 12/21/19 16:25 DV [id number] 12/21/19 16:30 DV Document 12/28/19 13:29 MW [id number] 12/28/19 13:38 MW 12/21/19 12/28/19 16:25 13:29 Wound Center Nurse 2 #1 Lower Abd -Time 16:25 13:30 -Correct Patient Yes Yes -Correct Side, Site, Position Yes Yes -Correct Procedure Yes Yes -Procedure Performed Yes Yes -Type of Procedure Debridement Debridement -Clinical Debridement Subcutaneous Subcutaneous -Post Debridement Size (cm) - Length 0.5 0.5 -Post Debridement Size (cm) - Width 2.0 0.7 -Post Debridement Size (cm) - Depth 2.0 1.7 -Total Square Cm 1.00 0.35 -Wound/Ulcer Outcome Not Healed Not Healed -Ulcer Cleansing Rinsed/ Rinsed/ Irrigated with Irrigated with Saline Saline -Foul Odor after Cleansing No No -Bioengineered Tissue No No -Bleeding Controlled with Pressure Pressure -Offloading No No -Treatment Response Procedure Procedure Tolerated Well Tolerated Well Pain Scale: 0-10 Numeric Is Patient Pain Free? 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 Plan: Jing's wound was evaluated and debrided today. Will start Metronidazole for treatment of anaerobic bacteria. Will continue to pack the wound with Aquacel extra and cover with gauze and an ABD and change once-twice daily based upon the amount of drainage and if the bandage is soiled. Encouraged to call sooner if increased drainage, odor, fever or chills develop. Will follow up in 1 week for re-evaluation.
[2020-01-04 15:40] VITALS: BP 157/64; PULSE 76; RESP 16; TEMP 36.4; BMI 44.3
--- NOTE | 2020-01-04 19:02 | PCM.WC.PN ---
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 Code(s): T14.8XXA - Other injury of unspecified body region, initial encounter (2) Cellulitis, abdominal wall Status: Acute Code(s): L03.311 - Cellulitis of abdominal wall (3) Seroma after procedure Status: Chronic (4) Status: Acute Qualifiers: Weeks of gestation: less than 8 weeks Qualified Code(s): Z3A.01 - Less than 8 weeks gestation of Code(s): Z34.90 - Encounter for supervision of normal , unspecified, unspecified trimester (5) Hx of section Status: Chronic Code(s): Z98.891 - History of uterine scar from previous surgery (6) Obesity Status: Chronic Qualifiers: Obesity type: unspecified obesity type Obesity classification: adult class 3 (BMI >= 40) Serious obesity comorbidity presence: without serious comorbidity Body mass index: BMI 40.0-44.9 Qualified Code(s): E66.01 - Morbid (severe) obesity due to excess calories; Z68.41 - Body mass index (BMI) 40.0-44.9, adult Code(s): E66.9 - Obesity, unspecified Type of Wound Date of Service: 01/11/20 Chief Complaint: surgical wound dehiscence left lower abdomen s/p tubal ligation reversal with seroma History of Wound: Jing is a very nice 39 yo woman that presents to the wound care center for evaluation and treatment of a nonhealing surgical wound dehiscence s/p tubal ligation reversal on November 22, 2019 in [place]. She was healing well until December 10, 2019 when she noticed a popping sensation when she rolled over in bed and noted the wound became a little red and swollen and tender and then opened the following day and started draining serous drainage. She went to the [facility] ER and was evaluated on December 13, 2019 and was started on doxycycline by the ER physician. They did an US of the lower abdomen looking for abscess but did not appreciate any fluid collection. She contacted her PCP who referred her to the wound center for evaluation and treatment on December 14, 2019. She has been using a maxi pad for dressing but has had a difficult time keeping a dressing in place. She was letting it open to air at night. There is a moderate amount of serous drainage but has been no odor or erythema or fever or chills or purulent drainage noted. She tested positive for on December 17, 2019 and stopped the doxycycline due to the potential teratogenic effects on and contacted her PCP regarding possible change of antibiotics and had not been contacted by wound center regarding referral. Her PCP office called wound center today December 21, 2019 to check on referral and unfortunately referral was not received but they scheduled her to be seen today for evaluation. She has not had any vaginal bleeding or cramping and has not taken any medication since finding out that she was . Progress of Wound: Jing is here for follow up of a surgical wound dehiscence. She is tolerating Aquacel extra packing into the wound and has noticed a less drainage. Her wound culture was positive for anaerobic bacteria and she is tolerating treatment with Flagyl. She has 3 days left. She denies any increased drainage, odor, pain or erythema. - Physical Exam Vital Signs Temp Pulse Resp BP 97.6 F L 76 16 157/64 H 01/04/20 15:40 01/04/20 15:40 01/04/20 15:40 01/04/20 15:40 General: Alert, Oriented x3, Cooperative, No apparent distress HEENT: Atraumatic, Normocephalic Oral: Moist Mucosa Abdomen: Obese Skin: Ulcer/ Wound Wound Measurements and Assessment WC - Nurse 1 - General Ulcer Measurement Start: 12/21/19 12:17 Freq: Status: Active Protocol: Activity Type Activity Date Activity User E-Sign Co-Sign Detail Recorded Client Recorded Date Recorded By Document 01/04/20 15:40 [facility] [id number] 01/04/20 15:45 [facility] 01/04/20 15:40 Wound Center Nurse 1 [Ulcer Assessment] #1 Lower Abd -Combined with other wound No -Current Size (cm) - Length 0.3 -Current Size (cm) - Width 0.6 -Current Size (cm) - Depth 0.2 -Total Square Cm 0.18 -Epithelialization None Present -Tunneling No -Undermining/Tunneling No -Circular Undermining No -Exudate Amt Small -Exudate Type Serous -Wound Margin Flat & Intact -Granulation Amt Large (67-100%) -Granulation Quality Pale,Red -Slough/Fibrin Yes -Necrosis Amt Small (1-33%) -Necrotic Tissue Type Adherent Slough -Texture (Paty-wound Skin Appearance) Assessed, Scarring -Moisture (Paty-wound Skin Appearance Assessed ) -Color (Paty-wound Skin Appearance) Assessed -Temperature (Paty-wound Skin No Abnormality Appearance) (Pt Warm) -Tenderness on Palpation (Paty-wound No Skin Appearance) -Ulcer Cleansing Rinsed/ Irrigated with Saline -Foul Odor after Cleansing No -Anesthetic Used 5% Lidocaine Gel WC - Nurse 2 - General Ulcer CM Notes Start: 12/21/19 12:17 Freq: Status: Active Protocol: Activity Type Activity Date Activity User E-Sign Co-Sign Detail Recorded Client Recorded Date Recorded By Document 01/04/20 16:28 DV [id number] 01/04/20 16:31 DV 01/04/20 16:28 Wound Center Nurse 2 [Procedure/Treatment] -Time 16:28 -Correct Patient Yes -Correct Side, Site, Position Yes -Correct Procedure Yes -Procedure Performed Yes -Type of Procedure Debridement -Clinical Debridement Subcutaneous -Post Debridement Size (cm) - Length 0.2 -Post Debridement Size (cm) - Width 0.5 -Post Debridement Size (cm) - Depth 0.2 -Total Square Cm 0.10 -Wound/Ulcer Outcome Not Healed -Ulcer Cleansing Rinsed/ Irrigated with Saline -Foul Odor after Cleansing No -Bioengineered Tissue No -Bleeding Controlled with Pressure -Offloading No -Treatment Response Procedure Tolerated Well [See Physician Procedure note for Specifics] Pain Scale: 0-10 Numeric [Pain] -Is Patient Pain Free? Yes Psych/Mental Status: Normal Affect, Appropriate Debridement Note Post-Debridement Measurements/Treatment WC - Nurse 2 - General Ulcer CM Notes Start: 12/21/19 12:17 Freq: Status: Active Protocol: Activity Type Activity Date Activity User E-Sign Co-Sign Detail Recorded Client Recorded Date Recorded By Document 12/21/19 16:25 DV [id number] 12/21/19 16:30 DV Document 12/28/19 13:29 MW [id number] 12/28/19 13:38 MW Document 01/04/20 16:28 DV [id number] 01/04/20 16:31 DV 12/21/19 12/28/19 01/04/20 16:25 13:29 16:28 Wound Center Nurse 2 #1 Lower Abd -Time 16:25 13:30 16:28 -Correct Patient Yes Yes Yes -Correct Side, Site, Position Yes Yes Yes -Correct Procedure Yes Yes Yes -Procedure Performed Yes Yes Yes -Type of Procedure Debridement Debridement Debridement -Clinical Debridement Subcutaneous Subcutaneous Subcutaneous -Post Debridement Size (cm) - Length 0.5 0.5 0.2 -Post Debridement Size (cm) - Width 2.0 0.7 0.5 -Post Debridement Size (cm) - Depth 2.0 1.7 0.2 -Total Square Cm 1.00 0.35 0.10 -Wound/Ulcer Outcome Not Healed Not Healed Not Healed -Ulcer Cleansing Rinsed/ Rinsed/ Rinsed/ Irrigated with Irrigated with Irrigated with Saline Saline Saline -Foul Odor after Cleansing No No No -Bioengineered Tissue No No No -Bleeding Controlled with Pressure Pressure Pressure -Offloading No No No -Treatment Response Procedure Procedure Procedure Tolerated Well Tolerated Well Tolerated Well Pain Scale: 0-10 Numeric Is Patient Pain Free? Yes Yes Yes Wound debrided: lower abdomen Type of Debridement: Excisional debridement Anesthesia Used: 4% Lidocaine Solution, 5% Lidocaine Gel Depth: Down to and including healthy tissue, in the subcutaneous layer Percentage of wound debrided: 100 Instrument Used: 3mm curette Tissue Removed: Yellow slough, devitalized tissue Severity: Fat Layer Exposed Amount of bleeding with debridement: Mild Bleeding Controlled with: Compression and gauze Patient tolerated procedure well Assessment/Plan Assessment: nonhealing surgical wound dehiscence with seroma s/p reversal of tubal ligation. Plan: iJng's wound was evaluated and debrided today. Will complete Metronidazole for treatment of anaerobic bacteria infection. Will continue to pack the wound with Aquacel extra and cover with gauze and an ABD and change once-twice daily based upon the amount of drainage and if the bandage is soiled. Encouraged to call sooner if increased drainage, odor, fever or chills develop. Will follow up in 1 week for re-evaluation.
== END 2020-01-13 23:59 ==
LOC: WC 12:30
PROVIDERS: PCP Family Medicine; Referring Provider Family Medicine; Visit Provider Family Medicine
DX: L03.311 Cellulitis of abdominal wall (principal); T81.89XA Other complications of procedures, not elsewhere classified, initial encounter; Y83.8 Other surgical procedures as the cause of abnormal reaction of the patient, or of later complication, without mention of misadventure at the time of the procedure; J45.909 Unspecified asthma, uncomplicated; G47.33 Obstructive sleep apnea (adult) (pediatric); Z87.891 Personal history of nicotine dependence; E66.01 Morbid (severe) obesity due to excess calories
CPT/HCPCS: 11042; 87070; 87075; 87077; 87186; 87205; 99213; G0463

== ENCOUNTER → 2020-01-04 13:47 | Outpatient (CLI) | payer OTHER, SELFPAY ==
[2019-12-28 12:18] VITALS: BMI 44.3
--- NOTE | 2020-01-04 13:50 | US_ITS ---
STUDY: FIRST TRIMESTER OBSTETRICAL ULTRASOUND REASON FOR EXAM: Female, 39 years old. . Dating. LMP: 11/23/2019. TECHNIQUE: Transabdominal and Transvaginal PRIOR ULTRASOUND: None. FINDINGS: There is fluid in the endometrial canal which contains a rounded echogenic structure. This likely represents an early gestational sac and yolk sac. However, no pole is identified. The mean sac diameter corresponds to 5 weeks and 5 days. The uterus measures 10.4 x 5.3 cm. There are fibroids noted in the uterus, measuring 2.1 x 2.0 cm and 2.0 x 1.5 cm. The cervix is closed. The right ovary is not visualized. The left ovary measures 3.7 x 2.6 x 2.1 cm. There is no left ovarian cyst. There is no visualized left adnexal mass or complex lesion. There is no fluid in the cul de sac. US/Init OB < 14Wks US IMPRESSION: Findings likely representing an early gestational sac and yolk sac. However, no pole is identified. These findings may be due to an early intrauterine gestation or a spontaneous . A nonvisualized ectopic is considered less likely, though is not completely excluded. Follow-up sonography and beta hCG levels are recommended. Electronically Signed: Luis Miguel Cruz, at 12:02 EDT Tel , Service support ,
== END ==
PROVIDERS: PCP Family Medicine; Referring Provider Obstetrics & Gynecology; Visit Provider Obstetrics & Gynecology
DX: O20.0 Threatened abortion (principal); Z3A.00 Weeks of gestation of pregnancy not specified
CPT/HCPCS: 76801

== ENCOUNTER → 2020-01-24 | Outpatient (CLI) | payer OTHER, SELFPAY ==
[2020-01-24 14:44] VITALS: BMI 44.3
[2020-01-24 17:38] LABS: Amphetamine Urine VISTA NEGATIVE (<1000 ng/mL); Barbiturate Urine VISTA NEGATIVE (< 200 ng/mL); Benzodiazepine Urine VISTA NEGATIVE (< 200 ng/mL); Cocaine Urine VISTA NEGATIVE (< 300 ng/mL); Ecstacy Urine VISTA NEGATIVE (< 500 ng/mL); Methadone Urine VISTA NEGATIVE (< 300 ng/mL); PCP Urine VISTA NEGATIVE (< 25 ng/mL); THC Urine VISTA NEGATIVE (< 50 ng/mL); Vista UDS pH Range 6
[2020-01-24 22:26] LABS: Chlamydia Trachomatis by PCR Negative (Negative); Neisserai gonorrhoeae by PCR Negative (Negative); Probe Check PASS; Sample Adequacy Control PASS; Specimen Processing Control PASS
== END | disposition home or self-care (01) ==
LOC: LABSPEC 17:00
PROVIDERS: PCP Family Medicine; Referring Provider Obstetrics & Gynecology; Visit Provider Obstetrics & Gynecology
DX: Z34.90 Encounter for supervision of normal pregnancy, unspecified, unspecified trimester (principal)
CPT/HCPCS: 80307; 87086; 87088; 87491; 87591

== ENCOUNTER → 2020-01-31 08:54 | Outpatient (CLI) | payer OTHER, SELFPAY ==
[2020-01-24 14:44] VITALS: BMI 44.3
[2020-01-31 08:59] VITALS: BP 138/69; PULSE 74; RESP 18; TEMP 36.1; O2SAT 97; BMI 43.5
[2020-01-31] MEDS: Dextrose 5%-Lactated Ringers 1,000 ML 999 ML IV (09:21)
[2020-01-31] MEDS: Ondansetron 4 MG/2 ML Vial IV (09:26)
[2020-01-31] MEDS: 0.9% Saline Lock 10 ML Syringe IV (10:32)
[2020-01-31 10:34] VITALS: BP 129/74; PULSE 66
== END ==
LOC: MEDOUTP 08:55
PROVIDERS: PCP Family Medicine; Referring Provider Obstetrics & Gynecology; Visit Provider Obstetrics & Gynecology
DX: E86.0 Dehydration (principal)
CPT/HCPCS: 96361; 96374; A4216; J2405

== ENCOUNTER → 2020-02-09 10:55 | Outpatient (CLI) | payer OTHER, SELFPAY ==
[2020-01-31 08:59] VITALS: BMI 43.5
[2020-02-09 11:27] LABS: Absolute Neutrophil Count 6.1 X10^3/uL (2.0-7.7); Basophil# 0.01 X10^3/uL; Basophil% 0.1 % (0-1); Eosinophil# 0.08 X10^3/uL; Eosinophils% 0.9 % (0-5); Hematocrit 34.9 % (37-47); Hemoglobin 11.4 g/dL (12.0-15.0); Lymphocyte % 24.4 % (19-41); Mean Corp Hgb Conc 32.7 g/dL (32-36); Mean Corpuscular Hgb 29.5 pg (27.0-32.0); Mean Corpuscular Volume 90.4 fL (81-99); Mean Platelet Vol. 9.8 fl (6.2-12.0); Monocyte# 0.57 X10^3/uL; Monocyte% 6.3 % (0-10); NRBC Flagged by Analyzer 0 % (0-5); Neutrophil # 6.13 X10^3/uL (2.7-7.7); Neutrophil % 68.1 % (47-70); Platelet Count 241 K/mm3 (150-450); RBC Distribution Width CV 12.8 % (11.6-14.6); RBC Distribution Width SD 41.7 fl (35.1-43.9); Red Blood Count 3.86 M/mm3 (4.2-5.4)
[2020-02-09 11:43] LABS: Glucose Challenge Gest 1H 50g 148 mg/dL (70-140)
[2020-02-11 10:23] LABS: HIV - WCH Non-Reactive (Nonreactive); Hepatitis B Surface Antigen Non-Reactive (Nonreactive); Hepatitis C Antibody Non-Reactive (Nonreactive); Rubella IgG 81.9 IU/mL
[2020-02-14 04:31] LABS: Rapid Plasmin Reagin (RPR) NONREACTIVE (NONREACTIVE)
== END ==
LOC: LAB 10:58
PROVIDERS: PCP Family Medicine; Referring Provider Obstetrics & Gynecology; Visit Provider Obstetrics & Gynecology
DX: Z34.81 Encounter for supervision of other normal pregnancy, first trimester (principal); Z31.430 Encounter of female for testing for genetic disease carrier status for procreative management
CPT/HCPCS: 36415; 82950; 85025; 86592; 86703; 86762; 86803; 86850; 86900; 86901; 87340

== ENCOUNTER → 2020-02-11 15:12 | Outpatient (CLI) | payer OTHER, SELFPAY ==
[2020-01-31 08:59] VITALS: BMI 43.5
[2020-02-11 16:29] LABS: NATERA MAILED SPECIMEN
== END ==
PROVIDERS: PCP Family Medicine; Referring Provider Obstetrics & Gynecology; Visit Provider Obstetrics & Gynecology
DX: Z34.81 Encounter for supervision of other normal pregnancy, first trimester (principal); Z31.430 Encounter of female for testing for genetic disease carrier status for procreative management

== ENCOUNTER → 2020-03-11 06:59 | Outpatient (CLI) | payer OTHER, SELFPAY ==
[2020-02-21 16:21] VITALS: BMI 43.5
[2020-03-11 07:51] LABS: Glucose GTT-Gestation. Fasting 92 mg/dL (<105)
[2020-03-11 09:29] LABS: Glucose GTT-Gestational 1 Hr 140 mg/dL (<190)
[2020-03-11 10:07] LABS: Glucose GTT-Gestational 2 Hr 145 mg/dL (<165)
[2020-03-11 10:45] LABS: Glucose GTT-Gestational 3 Hr 68 L (<145)
== END ==
PROVIDERS: PCP Family Medicine; Referring Provider Nurse Practitioner Women's Health; Visit Provider Nurse Practitioner Women's Health
DX: R73.09 Other abnormal glucose (principal)
CPT/HCPCS: 36415; 82951; 82952

== ENCOUNTER → 2020-03-21 19:25 | Outpatient (CLI) | payer OTHER, SELFPAY ==
[2020-03-21 16:36] VITALS: BMI 43.5
--- NOTE | 2020-03-21 19:26 | US_ITS ---
STUDY: SECOND AND THIRD TRIMESTER OBSTETRICAL ULTRASOUND REASON FOR EXAM: Female, 39 years old DEMISE CONFIRM LMP: 11/23/19 TECHNIQUE: Transabdominal TECHNICAL QUALITY: Adequate. PRIOR ULTRASOUND: 01/04/20 FINDINGS: There is an intrauterine gestation in breech presentation. However, there is no cardiac activity. This is consistent with demise. BIOMETRY: BPD: 2.18 cm: 13 weeks, 4 days HC: 8.5 cm: 13 weeks, 6 days AC: 9.09 cm: 15 weeks, 2 days FL: 1.16 cm: 13 weeks, 4 days age by current US: 14 weeks, 1 days. US/Transvaginal w/Preg US IMPRESSION: Findings consistent with demise. Electronically Signed: Luis Miguel Cruz, at 20:42 EDT Tel , Service support ,
== END ==
PROVIDERS: PCP Family Medicine; Referring Provider Obstetrics & Gynecology; Visit Provider Obstetrics & Gynecology
DX: E86.0 Dehydration (principal)
CPT/HCPCS: 76817

== ENCOUNTER → 2020-10-21 17:02 | Outpatient (CLI) | payer OTHER, SELFPAY ==
--- NOTE | 2020-10-21 17:06 | RAD_ITS ---
STUDY: X-RAY - RIGHT HAND, ATTENTION FIRST FINGER REASON FOR EXAM: Female, 40 years old. Right thumb pain TECHNIQUE: 3 view(s) of the finger were obtained. COMPARISON: None. FINDINGS: Normal metacarpal head. Normal metacarpophalangeal joint. Normal proximal phalanx. Normal middle phalanx. Normal distal phalanx. Normal proximal interphalangeal joint. Normal distal interphalangeal joint. There is no demonstrated fracture. RAD/Finger(s) Min 2 Views IMPRESSION: Normal x-ray examination of the finger. Electronically Signed: Vargas Garduno MD at 19:05 EST , Service support ,
== END ==
PROVIDERS: PCP Family Medicine; Referring Provider Physician Assistant Surgical; Visit Provider Physician Assistant Surgical
DX: M79.644 Pain in right finger(s) (principal)
CPT/HCPCS: 73140

== ENCOUNTER → 2020-10-29 15:31 | Outpatient (CLI) | payer OTHER, SELFPAY ==
[2020-03-21 16:36] VITALS: BMI 43.5
[2020-10-21 17:22] VITALS: BMI 44.4
--- NOTE | 2020-10-29 15:33 | BI_ITS ---
MAMMOGRAPHY - BILATERAL SCREENING REASON FOR EXAM: Female, 40 years old. Routine annual screening examination. PERTINENT HISTORY: Mother with breast cancer. TECHNIQUE: Digital bilateral breast elvira (3D mammographic acquisition) in the CC and MLO projections. 2-D mediolateral oblique (MLO) and craniocaudad (CC) views of both breasts were obtained. CAD: Full Field Digital Mammography with Computer Added Detection was performed. COMPARISON: Comparison is made with prior study dated 10/29/2019 and 01/24/2015. FINDINGS: Breast Composition: The breasts are heterogeneously dense, which may obscure small masses. There are no dominant masses or suspicious calcifications. No other significant abnormalities are identified. There has been no significant change since the prior study. BI/SCRN MAMM (CAD)W/ELVIRA BILAT IMPRESSION: Stable bilateral screening mammogram. Yearly follow-up mammogram recommended. (A) ASSESSMENT CATEGORY: BIRADS Category 1: Negative. A letter regarding these results will be sent to the patient by the facility within 30 days. Approximately 10% of breast cancers are not detected by mammography. A normal mammogram should not delay biopsy of a clinically suspicious abnormality. [id number] Electronically Signed: Alphonso Mcgovern MD at 8:12 EDT , Service support ,
== END ==
PROVIDERS: PCP Family Medicine; Referring Provider Obstetrics & Gynecology; Visit Provider Obstetrics & Gynecology
DX: Z12.31 Encounter for screening mammogram for malignant neoplasm of breast (principal)
CPT/HCPCS: 77063; 77067

== ENCOUNTER → 2020-11-22 10:00 | Outpatient (CLI) | payer OTHER, SELFPAY ==
[2020-10-21 17:22] VITALS: BMI 44.4
[2020-11-22 12:03] LABS: Thyroid Stim Hormone (TSH) 1.65 uIU/mL (0.358-3.74)
[2020-11-24 11:37] LABS: HIV - WCH Non-Reactive (Nonreactive); Hepatitis B Surface Antigen Non-Reactive (Nonreactive); Hepatitis C Antibody Non-Reactive (Nonreactive); Syphilis Antibodies Non-reactive
== END ==
LOC: LAB 10:03
PROVIDERS: PCP Family Medicine; Visit Provider Obstetrics & Gynecology Reproductive Endocrinology
DX: Z31.41 Encounter for fertility testing (principal)
CPT/HCPCS: 36415; 82627; 84443; 86703; 86780; 86803; 87340; 82626

== ENCOUNTER → 2020-12-02 16:24 | Outpatient (CLI) | payer OTHER, SELFPAY ==
[2020-10-21 17:22] VITALS: BMI 44.4
[2020-12-02 19:11] LABS: Chlamydia Trachomatis by PCR Negative (Negative); Neisserai gonorrhoeae by PCR Negative (Negative); Probe Check PASS; Sample Adequacy Control PASS; Specimen Processing Control PASS
== END ==
LOC: LAB 16:30
PROVIDERS: PCP Family Medicine; Referring Provider Obstetrics & Gynecology Reproductive Endocrinology; Visit Provider Obstetrics & Gynecology Reproductive Endocrinology
DX: Z31.41 Encounter for fertility testing (principal)
CPT/HCPCS: 87491; 87591

== ENCOUNTER → 2021-01-05 | Outpatient (CLI) | payer OTHER, SELFPAY ==
[2021-01-05 16:10] VITALS: BMI 44.4
== END | disposition home or self-care (01) ==
LOC: LABSPEC 16:58
PROVIDERS: PCP Family Medicine; Referring Provider Obstetrics & Gynecology; Visit Provider Obstetrics & Gynecology
DX: R30.9 Painful micturition, unspecified (principal)
CPT/HCPCS: 87077; 87086; 87088; 87186

== ENCOUNTER → 2021-03-09 | Outpatient (CLI) | payer OTHER, BC, SELFPAY ==
[2021-03-09 14:18] VITALS: BMI 46.3
== END | disposition home or self-care (01) ==
LOC: LABSPEC 17:12
PROVIDERS: PCP Family Medicine; Referring Provider Obstetrics & Gynecology; Visit Provider Obstetrics & Gynecology
DX: N89.8 Other specified noninflammatory disorders of vagina (principal)
CPT/HCPCS: 87070; 87205

== ENCOUNTER → 2021-05-14 13:24 | Outpatient (CLI) | payer BC, SELFPAY ==
[2021-05-14 13:45] LABS: Absolute Lymphocyte Count 2.67 X10^3/uL (0.83-4.51); Absolute Neutrophil Count 5.1 X10^3/uL (2.0-7.7); Basophil# 0.02 X10^3/uL; Basophil% 0.2 % (0-1); Eosinophil# 0.07 X10^3/uL; Eosinophils% 0.8 % (0-5); Hematocrit 41.2 % (37-47); Hemoglobin 13.3 g/dL (12.0-15.0); Lymphocyte # 2.67 X10^3/ul (0.83-4.51); Lymphocyte % 31.3 % (19-41); Mean Corp Hgb Conc 32.3 g/dL (32-36); Mean Corpuscular Hgb 28.2 pg (27.0-32.0); Mean Corpuscular Volume 87.5 fL (81-99); Mean Platelet Vol. 9.9 fl (6.2-12.0); Monocyte# 0.69 X10^3/uL; Monocyte% 8.1 % (0-10); NRBC Flagged by Analyzer 0 % (0-5); Neutrophil # 5.05 X10^3/uL (2.7-7.7); Neutrophil % 59.2 % (47-70); Platelet Count 321 K/mm3 (150-450); RBC Distribution Width CV 12.7 % (11.6-14.6); RBC Distribution Width SD 40.6 fl (35.1-43.9); Red Blood Count 4.71 M/mm3 (4.2-5.4); White Blood Count 8.5 K/mm3 (4.4-11.0)
[2021-05-14 14:09] LABS: ALB/GLOB Ratio 0.8 RATIO (0.9-2.4); AST(SGOT) 17 U/L (15-37); Alanine Aminotransfer ALT/SGPT 26 U/L (13-56); Albumin, Serum 3.6 g/dL (3.2-5.0); Alkaline Phosphatase 86 U/L (45-117); Anion Gap 6 (5-15); BUN 11 mg/dL (7-18); BUN/Creat Ratio 10.4 RATIO (10-20); Calcium,Total 8.9 mg/dL (8.5-10.1); Chloride 106 mmol/L (98-107); Creatinine, Serum 1.06 mg/dL (0.55-1.02); EST Glomerular Filtration Rate 61 mL/min (>60); Est Glom Filt Rate - Afr Amer 73 mL/min (>60); Globulin 4.4 g/dL (2.2-4.2); Glucose 102 mg/dL (74-106); Sodium Level 139 mmol/L (136-145)
[2021-05-14 14:26] LABS: Progesterone Level 1.27 ng/mL (See Comment); Syphilis Antibodies Non-reactive
== END ==
LOC: LAB 13:25
PROVIDERS: PCP Family Medicine; Referring Provider Obstetrics & Gynecology; Visit Provider Obstetrics & Gynecology
DX: N97.9 Female infertility, unspecified (principal); Z31.9 Encounter for procreative management, unspecified
CPT/HCPCS: 36415; 80053; 84144; 85025; 86780

== ENCOUNTER → 2021-06-19 07:22 | Outpatient (CLI) | payer BC, SELFPAY ==
--- NOTE | 2021-06-19 07:35 | US_ITS ---
STUDY: ULTRASOUND OF THE FEMALE PELVIS - COMPLETE REASON FOR EXAM: Female, 40 years old. Anovulation LMP: 06/17/2021. TECHNIQUE: Transvaginal TECHNICAL QUALITY: Adequate. COMPARISON: Comparison is made with prior study dated 07/17/2014. FINDINGS: The uterus is anteverted and is in a midline position. The uterus measures 9.9 cm x 5.8 cm x 4.7 cm. There is a Nabothian cyst of the cervix. The endometrium measures 6.5 mm in thickness, and is hyperechoic. There is no demonstrated endometrial mass. There is a 1.1 cm x 0.8 cm x 0.5 cm uterine fibroid. I.U.D. - The patient does not have an I.U.D. The right ovary is visualized. The right ovary measures 2 cm x 2.3 cm x 1.8 cm. There is no right ovarian cyst or ovarian mass. There is no visualized right adnexal mass or complex lesion. There is normal arterial and normal venous vascularity. The left ovary is visualized. The left ovary measures 2.2 cm x 1.9 cm x 1.5 cm. There is no left ovarian cyst or ovarian mass. There is no visualized left adnexal mass or complex lesion. There is normal arterial and normal venous vascularity. There is no fluid in the cul-de-sac. US/Transvaginal Non- IMPRESSION: 1.1 cm x 0.8 cm x 0.5 cm uterine fibroid. Electronically Signed: Alphonso Mcgovern MD at 8:52 EDT , Service support ,
[2021-06-19 07:59] LABS: hCG Titer Quant., Serum < 1 mIU/mL (1-3)
[2021-06-19 08:00] LABS: Estradiol 37.7 pg/mL; Follicle Stimulating Hormone 8.5 mIU/mL; Luteinizing Hormone 4.4 mIU/mL; Thyroid Stim Hormone (TSH) 1.52 uIU/mL (0.358-3.74)
[2021-06-19 08:11] LABS: Progesterone Level 0.37 ng/mL (See Comment)
== END ==
PROVIDERS: PCP Family Medicine; Referring Provider Obstetrics & Gynecology; Visit Provider Obstetrics & Gynecology
DX: N97.0 Female infertility associated with anovulation (principal)
CPT/HCPCS: 36415; 76830; 82670; 83001; 83002; 84144; 84443; 84702

== ENCOUNTER → 2021-06-26 07:24 | Outpatient (CLI) | payer OTHER, BC, SELFPAY ==
--- NOTE | 2021-06-26 07:36 | US_ITS ---
STUDY: ULTRASOUND OF THE FEMALE PELVIS - COMPLETE REASON FOR EXAM: Female, 40 years old. Female infertility -- STAT LMP: 06/17/2021. TECHNIQUE: Transvaginal TECHNICAL QUALITY: Adequate. COMPARISON: Comparison is made with prior study dated 06/19/2021. FINDINGS: The uterus is anteverted and is in a midline position. The uterus measures 10.4 cm x 6.1 cm x 4.9 cm. There is a Nabothian cyst of the cervix. The endometrium measures 13.5 mm in thickness, and is heterogeneous (striated). There is no demonstrated endometrial mass. There is a 1.2 cm x 1.3 cm x 0.5 cm fibroid. The uterus is of heterogeneous echotexture. I.U.D. - The patient does not have an I.U.D. The right ovary is visualized. The right ovary measures 2 cm x 2.2 cm x 1.8 cm. There is no right ovarian cyst or ovarian mass. There is no visualized right adnexal mass or complex lesion. There is normal arterial and normal venous vascularity. The left ovary is visualized. The left ovary measures 1.9 cm x 1.9 cm x 1.4 cm. There is no left ovarian cyst or ovarian mass. There is no visualized left adnexal mass or complex lesion. There is normal arterial and normal venous vascularity. There is no fluid in the cul-de-sac. US/Transvaginal Non- IMPRESSION: Thickened endometrium most likely related to the patient''s menstrual phase. Heterogeneous appearance of the uterus. 1.2 cm x 1.3 cm x 0.5 cm uterine fibroid. Electronically Signed: Alphonso Mcgovern MD at 9:03 EST , Service support ,
[2021-06-26 08:11] LABS: Estradiol 207.6 pg/mL; Luteinizing Hormone 9.2 mIU/mL
== END ==
PROVIDERS: PCP Family Medicine; Referring Provider Obstetrics & Gynecology; Visit Provider Obstetrics & Gynecology
DX: N97.0 Female infertility associated with anovulation (principal)
CPT/HCPCS: 36415; 76830; 82670; 83002; 84144

== ENCOUNTER → 2021-07-07 07:03 | Outpatient (CLI) | payer OTHER, BC, SELFPAY ==
[2021-07-07 07:46] LABS: Estradiol 206.2 pg/mL
[2021-07-07 08:37] LABS: Progesterone Level 36.99 ng/mL (See Comment)
== END ==
PROVIDERS: PCP Family Medicine; Referring Provider Obstetrics & Gynecology Reproductive Endocrinology; Visit Provider Obstetrics & Gynecology Reproductive Endocrinology
DX: Z31.49 Encounter for other procreative investigation and testing (principal)
CPT/HCPCS: 36415; 82670; 84144

== ENCOUNTER → 2021-07-13 08:03 | Outpatient (CLI) | payer OTHER, BC, SELFPAY ==
[2021-07-13 09:40] LABS: hCG Titer Quant., Serum < 1 mIU/mL (1-3)
== END ==
PROVIDERS: PCP Family Medicine; Referring Provider Obstetrics & Gynecology; Visit Provider Obstetrics & Gynecology
DX: N91.2 Amenorrhea, unspecified (principal)
CPT/HCPCS: 36415; 84702

== ENCOUNTER 2021-08-24 09:17 | Outpatient (CLI) | payer OTHER, BC, SELFPAY ==
--- NOTE | 2021-08-24 09:23 | US_ITS ---
STUDY: ULTRASOUND OF THE FEMALE PELVIS - COMPLETE REASON FOR EXAM: Female, 40 years old. Infertility LMP: 08/21/2021. TECHNIQUE: Transvaginal TECHNICAL QUALITY: Adequate. COMPARISON: Comparison is made with prior examination dated 06/26/2021. FINDINGS: The uterus is anteverted and is tilted to the right side of the pelvis. The uterus measures 9.2 cm x 5.9 cm x 4.3 cm. There is a Nabothian cyst of the cervix. The endometrium measures 6.6 mm in thickness, and is hyperechoic. There is no demonstrated endometrial mass. There is a 1.5 cm x 1.3 cm x 0.6 cm hypoechoic fibroid in the fundal portion of the uterus. I.U.D. - The patient does not have an I.U.D. The right ovary is visualized. The right ovary measures 2.4 cm x 1.9 cm x 1.5 cm. There is a dominant follicle in the right ovary. This measures 1.3 cm x 1.1 cm x 1 cm. There is no right ovarian cyst or ovarian mass. There is no visualized right adnexal mass or complex lesion. There is normal arterial and normal venous vascularity. The left ovary is visualized. The left ovary measures 2.2 cm x 1.6 cm x 1.4 cm. There is no left ovarian cyst or ovarian mass. There is no visualized left adnexal mass or complex lesion. There is normal arterial and normal venous vascularity. There is no fluid in the cul-de-sac. US/Transvaginal Non- IMPRESSION: Small uterine fibroid. Dominant follicle in the right ovary measuring 1.3 cm x 1.1 cm x 1 cm. Electronically Signed: Alphonso Mcgovern MD at 13:29 EST , Service support ,
[2021-08-24 11:33] LABS: Follicle Stimulating Hormone 8.9 mIU/mL; Luteinizing Hormone 3.6 mIU/mL; Thyroid Stim Hormone (TSH) 1.62 uIU/mL (0.358-3.74); hCG Titer Quant., Serum < 1 mIU/mL (1-3)
[2021-08-24 13:15] LABS: Progesterone Level 0.48 ng/mL (See Comment)
== END 2021-08-24 23:59 | disposition short-term general hospital (02) ==
PROVIDERS: PCP Family Medicine; Referring Provider Obstetrics & Gynecology; Visit Provider Obstetrics & Gynecology
DX: N97.0 Female infertility associated with anovulation (principal)
CPT/HCPCS: 36415; 76830; 82670; 83001; 83002; 84144; 84443; 84702

== ENCOUNTER 2021-08-31 07:39 | Outpatient (CLI) | payer OTHER, BC, SELFPAY ==
--- NOTE | 2021-08-31 07:42 | US_ITS ---
STUDY: ULTRASOUND OF THE FEMALE PELVIS - COMPLETE REASON FOR EXAM: Female, 40 years old. Infertility LMP: 08/21/2021 TECHNIQUE: Transvaginal TECHNICAL QUALITY: Adequate. COMPARISON: None. FINDINGS: The uterus is anteverted and is in a midline position. The uterus measures 10.5 cm x 6 cm x 4.9 cm. There is a Nabothian cyst of the cervix. The endometrium measures 12.5 mm in thickness, and is heterogeneous (striated). There is no demonstrated endometrial mass. There is a 1.3 cm x 1.3 cm x 0.5 cm fibroid along the anterior aspect of the body of the uterus. I.U.D. - The patient does not have an I.U.D. The right ovary is visualized. The right ovary measures 1.9 cm x 1.9 cm x 2.2 cm. There is a 1.2 cm x 1 cm x 1.2 cm follicle within it. There is no visualized right adnexal mass or complex lesion. There is normal arterial and normal venous vascularity. The left ovary is visualized. The left ovary measures 2.2 cm x 1.8 cm x 1.6 cm. There is no left ovarian cyst or ovarian mass. There is no visualized left adnexal mass or complex lesion. There is normal arterial and normal venous vascularity. There is no fluid in the cul-de-sac. US/Transvaginal Non- IMPRESSION: The endometrium measures 12.5 mm. It is trilaminar in appearance. There is a 1.2 cm x 1 cm x 1.2 cm follicle in the right ovary. Electronically Signed: Alphonso Mcgovern MD at 9:07 EST , Service support ,
[2021-08-31 08:53] LABS: Estradiol 263.8 pg/mL; Luteinizing Hormone 14.8 mIU/mL
[2021-08-31 09:03] LABS: Progesterone Level 0.45 ng/mL (See Comment); Vitamin D,25 Hydroxy 27.3 ng/mL
== END 2021-08-31 23:59 | disposition short-term general hospital (02) ==
PROVIDERS: PCP Family Medicine; Referring Provider Obstetrics & Gynecology; Visit Provider Obstetrics & Gynecology
DX: Z01.419 Encounter for gynecological examination (general) (routine) without abnormal findings (principal); N97.0 Female infertility associated with anovulation
CPT/HCPCS: 36415; 76830; 82306; 82670; 83002; 84144

== ENCOUNTER 2021-09-11 07:57 | Outpatient (CLI) | payer OTHER, BC, SELFPAY ==
[2021-09-11 08:15] LABS: Estradiol 255.4 pg/mL
[2021-09-11 08:30] LABS: Progesterone Level 32.78 ng/mL (See Comment)
== END 2021-09-11 23:59 | disposition short-term general hospital (02) ==
PROVIDERS: PCP Family Medicine; Visit Provider Obstetrics & Gynecology Reproductive Endocrinology
DX: Z31.49 Encounter for other procreative investigation and testing (principal)
CPT/HCPCS: 36415; 82670; 84144

== ENCOUNTER 2021-09-16 07:45 | Outpatient (CLI) | payer OTHER, BC, SELFPAY ==
[2021-09-16 08:45] LABS: Progesterone Level 39.68 ng/mL (See Comment)
[2021-09-16 08:47] LABS: hCG Titer Quant., Serum 14 mIU/mL (1-3)
== END 2021-09-16 23:59 | disposition short-term general hospital (02) ==
LOC: LAB 07:48
PROVIDERS: PCP Family Medicine; Referring Provider Obstetrics & Gynecology Reproductive Endocrinology; Visit Provider Obstetrics & Gynecology Reproductive Endocrinology
DX: Z32.00 Encounter for pregnancy test, result unknown (principal)
CPT/HCPCS: 36415; 84144; 84702

== ENCOUNTER 2021-09-19 09:19 | Outpatient (CLI) | payer OTHER, BC, SELFPAY ==
[2021-09-19 10:05] LABS: hCG Titer Quant., Serum 2 mIU/mL (1-3)
[2021-09-19 10:08] LABS: Estradiol 91.5 pg/mL; Follicle Stimulating Hormone 0.3 mIU/mL; Luteinizing Hormone 0.2 mIU/mL; Thyroid Stim Hormone (TSH) 1.94 uIU/mL (0.358-3.74)
[2021-09-21 08:10] LABS: Progesterone Level 20.98 ng/mL (See Comment)
== END 2021-09-19 23:59 | disposition home or self-care (01) ==
LOC: LAB 09:23
PROVIDERS: PCP Family Medicine; Referring Provider Obstetrics & Gynecology; Visit Provider Obstetrics & Gynecology
DX: N97.0 Female infertility associated with anovulation (principal)
CPT/HCPCS: 36415; 82670; 83001; 83002; 84144; 84443; 84702

== ENCOUNTER 2021-09-25 08:31 | Outpatient (CLI) | payer OTHER, BC, SELFPAY ==
--- NOTE | 2021-09-25 08:43 | US_ITS ---
STUDY: ULTRASOUND OF THE FEMALE PELVIS - COMPLETE REASON FOR EXAM: Female, 40 years old. Anovulation LMP: 09/23/2021. TECHNIQUE: Transvaginal TECHNICAL QUALITY: Adequate. COMPARISON: Comparison is made with prior study dated 08/31/2021. FINDINGS: The uterus is anteverted and is in a midline position. The uterus measures 9.7 cm x 5.2 cm x 4.3 cm. There is a Nabothian cyst of the cervix. The endometrium measures 7 mm in thickness, and is hyperechoic. There is no demonstrated endometrial mass. There is a 1.1 cm x 1.27 x 0.6 cm fibroid along the anterior aspect of the body of the uterus. I.U.D. - The patient does not have an I.U.D. The right ovary is visualized. The right ovary measures 2.2 cm x 1.3 cm x 1.6 cm. There is no right ovarian cyst or ovarian mass. There is no visualized right adnexal mass or complex lesion. There is normal arterial and normal venous vascularity. The left ovary is visualized. The left ovary measures 2.2 cm x 1.6 x 1.2 cm. A follicle is seen within the left ovary measuring 7 mm x 6 mm x 4 mm. There is no visualized left adnexal mass or complex lesion. There is normal arterial and normal venous vascularity. There is no fluid in the cul-de-sac. US/Transvaginal Non- IMPRESSION: Small uterine fibroid. A 7 mm x 6 mm x 4 mm follicle is seen in the left ovary. Electronically Signed: Alphonso Mcgovern MD at 15:04 EST ,
[2021-09-25 10:06] LABS: hCG Titer Quant., Serum < 1 mIU/mL (1-3)
[2021-09-25 10:14] LABS: Estradiol 32.2 pg/mL; Follicle Stimulating Hormone 11.3 mIU/mL; Luteinizing Hormone 3.6 mIU/mL
== END 2021-09-25 23:59 | disposition home or self-care (01) ==
LOC: US 08:33
PROVIDERS: PCP Family Medicine; Visit Provider Obstetrics & Gynecology
DX: N97.0 Female infertility associated with anovulation (principal); Z87.59 Personal history of other complications of pregnancy, childbirth and the puerperium
CPT/HCPCS: 36415; 76830; 82670; 83001; 83002; 84144; 84702

== ENCOUNTER 2021-10-02 08:30 | Outpatient (CLI) | payer OTHER, BC, SELFPAY ==
--- NOTE | 2021-10-02 08:43 | US_ITS ---
STUDY: ULTRASOUND OF THE FEMALE PELVIS - COMPLETE REASON FOR EXAM: Female, 41 years old. Infertility LMP: 09/21/2021. TECHNIQUE: Transvaginal TECHNICAL QUALITY: Adequate. COMPARISON: Comparison is made with prior examination dated 09/25/2021. FINDINGS: The uterus is anteverted and is in a midline position. The uterus measures 10.9 cm x 6 cm x 4.9 cm. Normal uterine cervix. The endometrium measures 12 mm in thickness, and is trilaminar in appearance. There is no demonstrated endometrial mass. There is a 1.1 cm by 1.4 cm x 0.7 cm fibroid along the anterior aspect of the body of the uterus. I.U.D. - The patient does not have an I.U.D. The right ovary is visualized. The right ovary measures 2.4 cm x 1.8 cm x 1.4 cm. There is no right ovarian cyst or ovarian mass. There is no visualized right adnexal mass or complex lesion. There is normal arterial and normal venous vascularity. The left ovary is visualized. The left ovary measures 2.3 cm x 1.5 cm x 1.7 cm. There is no left ovarian cyst or ovarian mass. There is no visualized left adnexal mass or complex lesion. There is normal arterial and normal venous vascularity. There is no fluid in the cul-de-sac. US/Transvaginal Non- IMPRESSION: Small uterine fibroid. Electronically Signed: Alphonso Mcgovern MD at 12:23 EST ,
[2021-10-02 09:17] LABS: Progesterone Level 0.42 ng/mL (See Comment)
[2021-10-02 09:20] LABS: Estradiol 289.2 pg/mL; Luteinizing Hormone 7.6 mIU/mL
== END 2021-10-02 23:59 | disposition home or self-care (01) ==
PROVIDERS: Obstetrics & Gynecology Reproductive Endocrinology; PCP Family Medicine; Referring Provider Obstetrics & Gynecology; Visit Provider Obstetrics & Gynecology
DX: Z31.83 Encounter for assisted reproductive fertility procedure cycle (principal)
CPT/HCPCS: 36415; 76830; 82670; 83002; 84144

== ENCOUNTER 2021-10-13 07:55 | Outpatient (CLI) | payer OTHER, BC, SELFPAY ==
[2021-10-13 08:48] LABS: Estradiol 356.7 pg/mL
== END 2021-10-13 23:59 | disposition home or self-care (01) ==
LOC: LAB 07:57
PROVIDERS: PCP Family Medicine; Referring Provider Obstetrics & Gynecology Reproductive Endocrinology; Visit Provider Obstetrics & Gynecology Reproductive Endocrinology
DX: Z31.49 Encounter for other procreative investigation and testing (principal)
CPT/HCPCS: 36415; 82670; 84144

== ENCOUNTER 2021-10-20 07:39 | Outpatient (CLI) | payer OTHER, BC, SELFPAY ==
[2021-10-20 08:31] LABS: hCG Titer Quant., Serum 16 mIU/mL (1-3)
[2021-10-20 09:05] LABS: Progesterone Level 30.77 ng/mL (See Comment)
== END 2021-10-20 23:59 | disposition home or self-care (01) ==
LOC: LAB 07:41
PROVIDERS: PCP Family Medicine; Referring Provider Obstetrics & Gynecology Reproductive Endocrinology; Visit Provider Obstetrics & Gynecology Reproductive Endocrinology
DX: Z32.00 Encounter for pregnancy test, result unknown (principal)
CPT/HCPCS: 36415; 84144; 84702

== ENCOUNTER 2021-10-22 07:53 | Outpatient (CLI) | payer OTHER, BC, SELFPAY ==
[2021-10-22 08:31] LABS: Progesterone Level 38.77 ng/mL (See Comment)
[2021-10-22 08:35] LABS: Estradiol 166.8 pg/mL; Thyroid Stim Hormone (TSH) 1.57 uIU/mL (0.358-3.74)
[2021-10-22 08:59] LABS: hCG Titer Quant., Serum 18 mIU/mL (1-3)
== END 2021-10-22 23:59 | disposition home or self-care (01) ==
LOC: LAB 07:55
PROVIDERS: PCP Family Medicine; Referring Provider Obstetrics & Gynecology Reproductive Endocrinology; Visit Provider Obstetrics & Gynecology Reproductive Endocrinology
DX: Z32.01 Encounter for pregnancy test, result positive (principal)
CPT/HCPCS: 36415; 82670; 84144; 84443; 84702

== ENCOUNTER 2021-10-30 07:06 | Outpatient (CLI) | payer OTHER, BC, SELFPAY ==
--- NOTE | 2021-10-30 07:12 | BI_ITS ---
MAMMOGRAPHY - BILATERAL SCREENING 3-D TOMOSYNTHESIS REASON FOR EXAM: Female, 41 years old. SCREENING PERTINENT HISTORY: No significant family history. TECHNIQUE: 2-D mammograms and 3-D Tomosynthesis of the breast (s) were performed. CAD was performed. COMPARISON: 10/29/2020 FINDINGS: The breast composition is heterogeneously dense that can obscure small breast masses. Scattered benign calcifications are seen. No dense spiculated masses or suspicious microcalcifications are identified. No architectural distortion is identified. There is no skin thickening or retraction. There has been no significant change since the prior study. BI/SCRN MAMM (CAD)W/ELVIRA BILAT IMPRESSION: No mammographic signs of malignancy. Routine yearly mammograms recommended. ASSESSMENT CATEGORY: BIRADS Category 1: Negative. A letter regarding these results will be sent to the patient by the facility within 30 days. FOLLOW UP RECOMMENDATION: Yearly follow up mammogram recommended. (A) Approximately 10% of breast cancers are not detected by mammography. A normal mammogram should not delay biopsy of a clinically suspicious abnormality. Electronically Signed: Jm Moura MD at 8:44 EDT ,
== END 2021-10-30 23:59 | disposition home or self-care (01) ==
LOC: OPBI 07:07
PROVIDERS: PCP Family Medicine; Referring Provider Obstetrics & Gynecology; Visit Provider Obstetrics & Gynecology
DX: Z12.31 Encounter for screening mammogram for malignant neoplasm of breast (principal)
CPT/HCPCS: 77063; 77067

== ENCOUNTER 2021-10-30 07:32 | Outpatient (CLI) | payer OTHER, BC, SELFPAY ==
[2021-10-30 08:06] LABS: hCG Titer Quant., Serum < 1 mIU/mL (1-3)
[2021-10-30 09:18] LABS: Progesterone Level 0.69 ng/mL (See Comment)
== END 2021-10-30 23:59 | disposition home or self-care (01) ==
PROVIDERS: PCP Family Medicine; Visit Provider Obstetrics & Gynecology Reproductive Endocrinology
DX: O09.00 Supervision of pregnancy with history of infertility, unspecified trimester (principal); Z3A.00 Weeks of gestation of pregnancy not specified
CPT/HCPCS: 36415; 84144; 84702

== ENCOUNTER 2021-12-01 07:24 | Outpatient (CLI) | payer OTHER, BC, SELFPAY ==
--- NOTE | 2021-12-01 07:27 | US_ITS ---
STUDY: ULTRASOUND TRANSVAGINAL CLINICAL: Female, 41 years old. infertility TECHNIQUE: Transvaginal COMPARISON: None. FINDINGS: Normal uterine size measuring 9.7 x 5.3 x 4.5 cm in maximal craniocaudal dimension. Myometrial mass measuring 1.1 x 1.3 x 0.7 cm (subserosal) is compatible with a small fibroid. Normal endometrial thickness measuring 8.0 mm. There are no endometrial masses, and there is no fluid in the endometrial cavity. There are nabothian cysts. Normal right ovary, measuring 2.6 x 2.5 x 2.3 cm. Dominant follicle measures 1.3 cm. Normal left ovary, measuring 2.4 x 2.2 x 1.3 cm. Dominant follicle measures 1.2 cm. There is no free fluid in the pelvis. US/Transvaginal Non- IMPRESSION: 1. Small subserosal uterine fibroid. 2. Bilateral ovarian follicles measuring up to 1.3 cm on the right side. Electronically Signed: Viktor Carlos MD (Brooks) at 8:51 EDT Reading Location ID and State: [id number] [place] , Service support ,
[2021-12-01 09:01] LABS: hCG Titer Quant., Serum < 1 mIU/mL (1-3)
[2021-12-01 09:05] LABS: Progesterone Level 0.29 ng/mL (See Comment)
[2021-12-01 09:45] LABS: Estradiol 33.9 pg/mL; Luteinizing Hormone 5.4 mIU/mL; Thyroid Stim Hormone (TSH) 1.91 uIU/mL (0.358-3.74)
== END 2021-12-01 23:59 | disposition home or self-care (01) ==
PROVIDERS: Obstetrics & Gynecology Reproductive Endocrinology; PCP Family Medicine; Referring Provider Obstetrics & Gynecology; Visit Provider Obstetrics & Gynecology
DX: Z31.83 Encounter for assisted reproductive fertility procedure cycle (principal)
CPT/HCPCS: 36415; 76830; 82670; 83001; 83002; 84144; 84443; 84702

== ENCOUNTER → 2021-12-10 | Outpatient (CLI) | payer OTHER, BC, SELFPAY ==
--- NOTE | 2021-12-10 07:27 | US_ITS ---
STUDY: ULTRASOUND OF THE FEMALE PELVIS - COMPLETE REASON FOR EXAM: Female, 41 years old. Infertility LMP: 12/07/2021. TECHNIQUE: Transvaginal TECHNICAL QUALITY: Adequate. COMPARISON: Comparison is made with prior study dated 12/01/2021. FINDINGS: The uterus is anteverted and is in a midline position. The uterus measures 10.1 cm x 5.4 cm x 4.4 cm. There is a Nabothian cyst of the cervix. The endometrium measures 4.0 mm in thickness, and is hyperechoic. There is no demonstrated endometrial mass. There is a 1.2 cm x 1.3 cm x 0.5 cm fibroid in the body of the uterus. The myometrium is of heterogeneous echotexture. I.U.D. - The patient does not have an I.U.D. The right ovary is visualized. The right ovary measures 2.2 cm x 2.2 cm x 2 cm. There is a dominant follicle in the right ovary measuring 1.3 cm x 1.1 cm x 1.2 cm. This is essentially unchanged. There is no visualized right adnexal mass or complex lesion. There is normal arterial and normal venous vascularity. The left ovary is visualized. The left ovary measures 2.1 cm x 2.1 cm x 1.2 cm. There is no left ovarian cyst or ovarian mass. There is no visualized left adnexal mass or complex lesion. There is normal arterial and normal venous vascularity. There is no fluid in the cul-de-sac. US/Transvaginal Non- IMPRESSION: Heterogeneous echotexture of the myometrium with stable small fibroid. Stable dominant follicle in the right ovary. Electronically Signed: Alphonso Mcgovern MD at 8:19 EDT ,
[2021-12-10 08:50] LABS: hCG Titer Quant., Serum < 1 mIU/mL (1-3)
[2021-12-10 08:56] LABS: Estradiol 62.4 pg/mL; Follicle Stimulating Hormone 7.4 mIU/mL; Luteinizing Hormone 6.9 mIU/mL; Thyroid Stim Hormone (TSH) 1.93 uIU/mL (0.358-3.74)
[2021-12-10 09:22] LABS: Progesterone Level 0.28 ng/mL (See Comment)
== END | disposition home or self-care (01) ==
PROVIDERS: PCP Family Medicine; Referring Provider Obstetrics & Gynecology; Visit Provider Obstetrics & Gynecology
DX: N97.0 Female infertility associated with anovulation (principal)
CPT/HCPCS: 36415; 76830; 82670; 83001; 83002; 84144; 84443; 84702

== ENCOUNTER → 2021-12-17 | Outpatient (CLI) | payer OTHER, BC, SELFPAY ==
--- NOTE | 2021-12-17 09:58 | US_ITS ---
STUDY: ULTRASOUND OF THE FEMALE PELVIS - COMPLETE REASON FOR EXAM: Female, 41 years old. Infertility. LMP: 12/07/2021. TECHNIQUE: Transvaginal TECHNICAL QUALITY: Adequate. COMPARISON: Comparison is made with prior study dated 12/10/2021. FINDINGS: The uterus is anteverted and is in a midline position. The uterus measures 9.4 cm x 5.3 cm x 4.7 cm. There is a Nabothian cyst of the cervix. The endometrium measures 12.6 mm in thickness, and is heterogeneous (striated). There is no demonstrated endometrial mass. There is evidence of a 1.5 cm x 1.1 cm x 0.6 cm fibroid in the body of the uterus. I.U.D. - The patient does not have an I.U.D. The right ovary is visualized. The right ovary measures 2.3 cm x 2.8 cm x 1.8 cm. There is a dominant follicle measuring 1.3 cm x 1.2 cm x 1.2 cm. There is no visualized right adnexal mass or complex lesion. There is normal arterial and normal venous vascularity. The left ovary is visualized. The left ovary measures 2.6 cm x 1.7cm x 1.1 cm. There is no left ovarian cyst or ovarian mass. There is no visualized left adnexal mass or complex lesion. There is normal arterial and normal venous vascularity. There is no fluid in the cul-de-sac. US/Transvaginal Non- IMPRESSION: Abdominal follicle in the right ovary measures 1.3 cm x 1.3 cm x 1.3 cm. This is essentially unchanged. Stable small uterine fibroid. Electronically Signed: Alphonso Mcgovern MD at 10:44 EDT ,
[2021-12-17 11:06] LABS: Progesterone Level 0.37 ng/mL (See Comment)
[2021-12-17 11:07] LABS: Estradiol 196.6 pg/mL; Luteinizing Hormone 22.6 mIU/mL
== END | disposition home or self-care (01) ==
PROVIDERS: PCP Family Medicine; Referring Provider Obstetrics & Gynecology; Visit Provider Obstetrics & Gynecology
DX: N97.0 Female infertility associated with anovulation (principal)
CPT/HCPCS: 36415; 76830; 82670; 83002; 84144

== ENCOUNTER 2022-01-12 12:19 | Day surgery (SDC) | payer OTHER, BC, SELFPAY ==
--- NOTE | 2022-01-12 | FALS_PTH ---
PATIENT: PRISCILA CARPENTER LOC: [facility] [place] U#:[id number] AGE/SX: 41/F ROOM: RE01/12/[address]: Dr. Liliana Newell MD : [id number] BED: DIS: 01/12/2022 SPEC #: [id number] RECD: 01/13/22 08:15 STATUS: TATI LOPEZ #: [id number] ELO: 01/12/22 00:[address]: Liliana Newell DEPT: SURGICAL PATHOLOGY RECD BY: Suman Jimenez ENTERED: 01/13/22 10:27 SP TYPE: FALL TUBES OTHR DR: Dr. Fitz Casillas MD Tissues: A - Fallopian tube B - Endometrium, NOS Procedures: Surgery Specimen Level II Surgery Specimen Level IV HEADER OPERATION: Hysteroscopy, dilation and curettage PRE-OP DIAGNOSIS: Chronic pelvic pain, dysmenorrhea TISSUE SUBMITTED: A ? Bilateral fallopian tubes, B ? Endometrial curettings MICROSCOPIC DIAGNOSIS A. Right and left fallopian tubes, bilateral salpingectomies: Complete segments of fallopian tubes with benign paratubal cyst. B. Endometrium, curettings: Transition endometrium with predominantly secretory change. AM:shin 01/14/2022 MICROSCOPIC DESCRIPTION Slides are reviewed. GROSS DESCRIPTION A - Received in fixative is one container labeled with the patient's name and designated bilateral fallopian tubes. The specimen consists of two fallopian tubes with an average length of 6 cm and has an average diameter of 0.8 cm. Both fallopian tubes have normal fimbriated ends. No mass lesions are identified. Record Systems Analyst sections are submitted in two cassettes as follows: 1 - fallopian tube with paratubal cyst, 2 - fallopian tube with paratubal cyst. B - Received in fixative is one container labeled with the patient's name and designated endometrial curettings. The specimen consists of multiple irregular fragments of red-barragan soft tissue that in aggregate measure 5 x 3 x 0.2 cm. The specimen is totally submitted in two cassettes. / AM:shin 01/13/2022 TC:5 CPT: 19130 x2, 22566
--- NOTE | 2022-01-12 09:43 | PCM.HP.BLA ---
History and Physical Date of Admission: 01/12/22 Intake Vital Signs 11/19/21 14:19 Height 5 ft 10 in Weight: 314 lb BMI 45.0 BP 152/100 H Intake Visit Reasons: Endometriosis consult Chief Complaint: endometriosis/d&c consult Allergies cephalexin [From Keflex] Allergy (Verified 11/19/21 14:20) Hives tree nut Allergy (Verified 11/19/21 14:20) Anaphylaxis venom-honey bee Allergy (Verified 11/19/21 14:20) Anaphylaxis meperidine HCl [From Demerol] Adverse Reaction (Verified 11/19/21 14:20) Unknown Medications cholecalciferol (vitamin D3) 125 mcg (5,000 unit) capsule 125 mcg PO DAILY 10/21/20 [History Confirmed 11/10/21] acyclovir 400 mg tablet 400 mg PO DAILY #30 tablet 11/25/20 [Rx Confirmed 11/10/21] metformin 500 mg tablet 500 mg PO DAILY 11/19/21 [History Confirmed 11/19/21] Is last menstrual period known: No Post menopausal: No Patient : No : No [facility] Medical History (Updated 11/19/21 @ 15:[address] 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 she has cyclic left lower back pain. she has been seeing infertility specialists and doing IVF cycles, they are recommending a d and c for uterine evaluation. she is also having painful periods and she is still wanting to continue to try and conceive. she uses heating pads and ibuprofen due to the pain she has. Female Reproductive History Menopausal Symptoms: No night sweats Pregancy History 4 Elective abortions Hx Para 3 Spontaneous abortions Hx # Term Pregnancies 3 Ectopic pregnancies Hx # Pregnancies Multiple births # of living children 3 Past Pregnancies Del. Date Name GA/Weeks Outcome Route Bth Weight Infant Gen Labor Lgth Anesthesia Del Locatn Provider FOB Unknown Lidia 2004 39 live - full term Female spinal [facility] Unknown Lisa 2005 39 live - full term Female spinal [facility] Unknown Joseph 2001 39 live - full term Female spinal [facility] Delivery Date: nuchal cord single, PreE, for chorioamnionitis Ellie,Seda Delivery Date: c/s double nuchal cord, short cord Pedraza,Meg Delivery Date: fever, emergency c/s Pedraza,Meg ROS Const Constitutional: Denies fatigue, night sweats, weight gain or weight loss ENT ENT: Reports system reviewed and no additional complaints, except as documented Cardio Card: Denies chest pain Resp Resp: Denies cough or dyspnea : Denies nipple discharge, urinary frequency, urinary incontinence, urinary hesitancy, urinary urgency, vaginal discharge, vaginal dryness, vaginal odor or vaginal pruritus Musc Musc: Denies arthralgias, back pain or muscle weakness Skin Skin/Breast: Denies alopecia, change in hair, dry skin, breast mass, breast pain, breast skin changes or nipple discharge Neuro Neuro: Reports system reviewed and no additional complaints, except as documented Psych Psych: Reports system reviewed and no additional complaints, except as documented Endo Endo: Denies cold intolerance, excessive sweating, heat intolerance or polydipsia Bora/Lymph Hematologic/Lymphatic: Denies easy bleeding, Denies easy bruising and Denies lymphadenopathy Exam Const General: cooperative, healthy appearing, comfortable, no acute distress and well developed Orientation: alert HENMT Head: normal to inspection and normocephalic Ears: hearing grossly normal bilaterally and external ears normal Nose: external nose normal and nares normal Face and sinus: normal facial exam Neck Neck: normal visual inspection and no lymphadenopathy Thyroid: thyroid normal Chest Chest palpation & inspection: normal inspection of the chest Resp Effort & Inspection: normal respiratory effort Auscultation: clear to auscultation bilaterally Cardio Rate: regular rate Rhythm: regular rhythm Heart Sounds: S1 normal and S2 normal GI Inspection: normal to inspection and non-distended Palpation: soft and no hepatosplenomegaly Musc Other: gross motor intact no deficits, full bilateral strength Skin General: no rashes or lesions noted Neuro General: patient alert, patient awake, moves all extremities and no focal motor deficits Motor: muscle tone normal throughout Extrem General: normal to inspection and no pedal edema Psych Appearance: grossly normal Mental Status: mental status grossly normal Affect: normal affect Speech and Movement: speech and movement normal Coding Level of Care Code Off vis,est,level 4 Diagnoses Chronic pelvic pain in female R10.2; G89.29 Dysmenorrhea N94.6 Assessment and Plan Assessment and Plan (1) Chronic pelvic pain in female: Status: Chronic Comment: d and c hysteroscopy diagnostic laparoscopy (2) Dysmenorrhea: Status: Acute Comment: recommend surgical evaluation Plan - Dr. Liliana Newell MD: After discussing the patient's diagnosis and treatment plan options, patient wishes to proceed with surgical management. I have discussed with the patient the risks, benefits, and alternatives of the procedure which include but are not limited to risks of anesthesia, bleeding, infection, possible damage to bowel, bladder, or surrounding vasculature which could lead to additional surgery to evaluate any complications. Patient agrees to procedure and wishes to proceed. ACOG/uptodate references given for additional information regarding procedure. UPDATE- I have seen the patient and performed any clinically relevant updates to the history and physical exam. Liliana Newell MD
[2022-01-12 13:10] VITALS: BP 144/79; PULSE 85; RESP 16; TEMP 36.9; O2SAT 98; BMI 44.1
[2022-01-12 13:17] LABS: Absolute Lymphocyte Count 2.84 X10^3/uL (0.83-4.51); Absolute Neutrophil Count 4.4 X10^3/uL (2.0-7.7); Basophil# 0.01 X10^3/uL; Basophil% 0.1 % (0-1); Eosinophil# 0.08 X10^3/uL; Hematocrit 36.7 % (37-47); Hemoglobin 12.2 g/dL (12.0-15.0); Lymphocyte # 2.84 X10^3/ul (0.83-4.51); Lymphocyte % 35.7 % (19-41); Mean Corp Hgb Conc 33.2 g/dL (32-36); Mean Corpuscular Hgb 28.6 pg (27.0-32.0); Mean Corpuscular Volume 86.2 fL (81-99); Mean Platelet Vol. 9.9 fl (6.2-12.0); Monocyte# 0.62 X10^3/uL; Monocyte% 7.8 % (0-10); NRBC Flagged by Analyzer 0 % (0-5); Neutrophil # 4.39 X10^3/uL (2.7-7.7); Neutrophil % 55.1 % (47-70); Platelet Count 232 K/mm3 (150-450); RBC Distribution Width SD 40.2 fl (35.1-43.9); Red Blood Count 4.26 M/mm3 (4.2-5.4)
[2022-01-12 13:24] LABS: Internal QC Validated? YES +Cl - CLEAR BKGD; Pregnancy, Urine Negative Negative
[2022-01-12] MEDS: Lactated Ringers 1,000 ML 15 ML IV ×2 (13:25→15:30)
--- NOTE | 2022-01-12 14:25 | OP.PCM_ITS ---
Problems Associated Problem List Diagnoses (1) Chronic pelvic pain in female: (2) Dysmenorrhea: (3) Endometriosis determined by laparoscopy: (4) Fallopian tube disorder: Report of Operation Date of Procedure: 01/12/22 Pre-Operative Diagnosis: see problem list Post-Operative Diagnosis: same Surgery/Procedure Performed:: d and c hysteroscopy bilateral salpingectomy ablation of endometriosis Surgeon: Liliana Newell radar operator: None Type of Anesthesia: General Special Medications: none Specimen's removed: EMC Drains: none Estimated Blood Loss (mL): 50 Fluids Replaced: crystalloid Description of Procedure: Patient was taken to the operating room and placed under general anesthesia was prepped and draped in normal sterile fashion in the dorsolithotomy position. Uterine manipulator was placed inside of the uterus. Attention was then paid to the abdomen and umbilical incision was made after injecting with quarter percent Marcaine and Veress needle entered into the abdomen confirmed to be intra-abdominal with a low opening pressure of less than 8 mmHg or pressure. Abdomen was insufflated with CO2 gas to allow passage of a 5 mm Optiview port. A second left lower quadrant 5 mm port site was also placed. Laparoscopy performed and the uterus visualized and noted to be of normal size with some anterior vesicouterine scar tissue seen due to previous C- section. There were several small endometriosis implants noted on the left posterior uterine corpus which were ablated with monopolar scissors. Multiple severe endometriosis implants were seen on both fallopian tubes bilaterally and the tubes were noted to be dilated and hydropic in appearance. It had been discussed previously with the patient if this finding had been present which she want to have the fallopian tubes removed because of the improved outcomes and the patient had agreed previously. The decision for bilateral salpingectomy was made and both tubes were removed using the LigaSure device by transecting across the mesosalpinx bilaterally and then removing them through the left lower quadrant port site. Additional ablation of endometriosis implants were done over the right ovary without complication. The appendix liver and upper abdomen were all visualized and noted to be within normal limits without complication. All instruments removed from the abdomen without complication. A weighted speculum was placed in the vagina and the anterior lip of the cervix was grasped with a single-tooth tenaculum. A paracervical block was placed with 1% lidocaine. Cervix was progressively dilated to allow passage of a 5 mm hysteroscope. The lining was fully visualized and noted to have no significant abnormalities. Uterine sounded to 10 cm. Curettage was performed and decent amount of specimen removed, sent to pathology. All instruments were removed from the vagina and excellent hemostasis was noted. Patient was awoken and taken to recovery in stable condition. Grafts/Implants Used: none Complications none Admit VTE Documentation VTE Present on Admission: No VTE Mechan Device Prophylaxis: SCD's Multi Select Codes Urinary/Genital Urinary/Genital CPT Codes: 13131 Hysteroscopy,EMC, Polypectomy, 13296 Laproscopic BS/O [place] 70798 Laproscopic ablation endometriosis
--- NOTE | 2022-01-12 14:33 | DCINST_ITS ---
Discharge Instructions Diet Discharge Diet: No restrictions Activity Discharge Activity: Return to Normal Activity, May Not Drive (for 2 weeks or while taking narcotic pain meds.), May Shower and May Take a Tub Bath (in 7 days) May resume sexual activity in: 1 week Weight Bearing Status: Full weight bearing Dressing / Incision Call your doctor if your incision/area has: Continuous Slow Oozing, Sudden Increased Bleeding, Increased Pain/ Swelling, Increased Redness and Foul Smelling Discharge Call your doctor if you observe: Fever of 101 or Higher, Using more than 1 pad per hour, Shortness of breath, Chest pain and Uncontrolled pain Suture Line Care: Avoid Pulling/Pushing and Avoid Pinching/Bending Remove Dressing in: 1 week (if present) Cleanse incision/area with: Soap & Water and Keep Dressing Clean & Dry Follow Up Care When: Call to make an appointment with your doctor for a fu/incision check in 1- 2 weeks. Test Results: Test results from this visit will be discussed in further detail at your follow-up appointment, if applicable. Discharge Plan Admission Primary Reason for Your Visit: bilateral fallopian tube removal due to endometriosis, ablation endometrios Attending Provider: Liliana Newell Primary Care Provider: Fitz Casillas Discharge Orders/Prescriptions Prescriptions: New oxycodone-acetaminophen [Percocet] 5-325 mg tablet 1 tab PO Q6H PRN (Reason: pain) 7 Days Qty: 10 RF: 0 naproxen [naproxen] 500 MG tablet 500 mg PO BID PRN PRN (Reason: Pain) Qty: 30 RF: 1 Continued cholecalciferol (vitamin D3) 125 mcg (5,000 unit) capsule 125 mcg PO DAILY RF: 0 metformin 500 mg tablet 500 mg PO DAILY RF: 0 albuterol 90 mcg/actuation Aerosol 90 mcg INHALATION PRN PRN (Reason: ASTHMA) RF: 0 acyclovir 400 mg tablet 400 mg PO DAILY Qty: 30 RF: 12 Referrals / Follow Up: Fitz Casillas MD [Primary Care Provider] - Disposition Disposition (needs filled in before D/C Order can be placed): Home, Self Care
[2022-01-12 15:40] VITALS: BP 140/73; BP 144/79; PULSE 58; RESP 18; TEMP 37.2; O2SAT 98
[2022-01-12 15:45] VITALS: BP 141/78; BP 144/79; PULSE 50; RESP 16; O2SAT 100
[2022-01-12 16:00] VITALS: BP 115/59; BP 144/79; PULSE 56; RESP 18; O2SAT 99
[2022-01-12 16:16] VITALS: BP 123/72; BP 144/79; PULSE 53; RESP 18; O2SAT 96
[2022-01-12 17:02] VITALS: BP 127/67; BP 144/79; PULSE 49; RESP 16; TEMP 36.6; O2SAT 97
== END 2022-01-12 17:21 | disposition home or self-care (01) ==
LOC: SDC 12:20 → AC 12:21
PROVIDERS: PCP Family Medicine; Referring Provider Obstetrics & Gynecology; Visit Provider Obstetrics & Gynecology
PROC: 0UDB8ZZ Extraction of Endometrium, Via Natural or Artificial Opening Endoscopic (ICD-10-PCS; CPT 58558; principal; 2022-01-12 14:00)
PROC: (CPT 49320; 2022-01-12 14:00)
DX: N80.2 Endometriosis of fallopian tube (principal); J45.909 Unspecified asthma, uncomplicated; Z87.891 Personal history of nicotine dependence; N94.6 Dysmenorrhea, unspecified; R10.2 Pelvic and perineal pain; G89.29 Other chronic pain; G47.33 Obstructive sleep apnea (adult) (pediatric); K21.9 Gastro-esophageal reflux disease without esophagitis; N80.0 Endometriosis of uterus
CPT/HCPCS: 58661; 58662; 81025; 85025; 86850; 86900; 86901; 88302; 88305; J7120; J2405

== ENCOUNTER → 2022-01-26 | Outpatient (CLI) | payer OTHER, BC, SELFPAY ==
--- NOTE | 2022-01-26 08:28 | US_ITS ---
STUDY: ULTRASOUND OF THE FEMALE PELVIS - COMPLETE REASON FOR EXAM: Female, 41 years old. Infertility LMP: 01/23/2022. TECHNIQUE: Transvaginal TECHNICAL QUALITY: Adequate. COMPARISON: Comparison is made with prior study dated 12/17/2021. FINDINGS: The uterus is anteverted and is in a midline position. The uterus measures 9.1 cm x 5.6 x 4.4 cm. There is a Nabothian cyst of the cervix. The endometrium measures 6.2 mm in thickness, and is hyperechoic. There is no demonstrated endometrial mass. Stable 1.4 cm x 1.4 cm x 0.7 cm fibroid in the body of uterus. Adjacent to this, there is a 3 mm x 3 mm x 2 mm fibroid. I.U.D. - The patient does not have an I.U.D. The right ovary is visualized. The right ovary measures 2.5 cm x 1.7 cm x 1.5 cm. There is no right ovarian cyst or ovarian mass. There is no visualized right adnexal mass or complex lesion. There is normal arterial and normal venous vascularity. The left ovary is visualized. The left ovary measures 2.3 cm x 1.9 cm x 1.0 cm. There is no left ovarian cyst or ovarian mass. There is no visualized left adnexal mass or complex lesion. There is normal arterial and normal venous vascularity. There is no fluid in the cul-de-sac. US/Transvaginal Non- IMPRESSION: Stable fibroid uterus. Electronically Signed: Alphonso Mcgovern MD at 12:15 EDT ,
[2022-01-26 09:55] LABS: Estradiol 36.1 pg/mL; Follicle Stimulating Hormone 9.5 mIU/mL; Luteinizing Hormone 2.8 mIU/mL
[2022-01-26 11:04] LABS: hCG Titer Quant., Serum < 1 mIU/mL (1-3)
[2022-01-26 11:11] LABS: Progesterone Level 0.52 ng/mL (See Comment)
== END | disposition home or self-care (01) ==
LOC: US 08:25 → LAB 09:10
PROVIDERS: PCP Family Medicine; Referring Provider Obstetrics & Gynecology; Visit Provider Obstetrics & Gynecology
DX: Z31.83 Encounter for assisted reproductive fertility procedure cycle (principal); N97.0 Female infertility associated with anovulation
CPT/HCPCS: 36415; 76830; 82670; 83001; 83002; 84144; 84702

== ENCOUNTER → 2022-02-02 | Outpatient (CLI) | payer OTHER, BC, SELFPAY ==
--- NOTE | 2022-02-02 08:02 | US_ITS ---
PROCEDURE: ULTRASOUND OF THE FEMALE PELVIS - COMPLETE REASON FOR EXAM: Female, 41 years old. Infertility TECHNIQUE: Transvaginal TECHNICAL QUALITY: Adequate. COMPARISON: OB ultrasound dated JANUARY 26, 2022 FINDINGS: The uterus is anteverted and is in a midline position. The uterus measures 10.2 x 5.0 x 4.7 cm. Mildly enlarged uterus with leiomyomatous changes and a discrete 1.6 cm mid uterine body submucosal fibroid. Reidentification of a small cyst in the proximal aspect of the endometrial cavity and myometrial junction maximally measuring 6.5 mm in diameter compared to 3.4 mm seen on the prior study. It is not clear at this time if this is a parenchymal cyst or gestational sac as no yolk sac or pole is present. The endometrium measures 13 mm in thickness, and is hyperechoic. There is no demonstrated endometrial mass. Normal uterine cervix. The right ovary is visualized. The right ovary measures 1.8 x 2.0 x 2.5 cm. There is no right ovarian cyst or ovarian mass. There is no visualized right adnexal mass or complex lesion. The left ovary is visualized. The left ovary measures 2.4 x 1.9 x 1.3 cm. There is no left ovarian cyst or ovarian mass. There is no visualized left adnexal mass or complex lesion. Normal color vascular flow and Doppler signal is demonstrated in both ovaries. There is no fluid in the cul-de-sac. US/Transvaginal Non- IMPRESSION: 1. Mildly enlarged uterus with leiomyomatous changes and a discrete 1.6 cm mid uterine body submucosal fibroid. 2. Reidentification of a small cyst in the proximal aspect of the endometrial cavity and myometrial junction maximally measuring 6.5 mm in diameter compared to 3.4 mm seen on the prior study. It is not clear at this time if this is a parenchymal cyst or gestational sac as no yolk sac or pole is present. Electronically Signed: Vargas Garduno MD at 9:18 EDT ,
[2022-02-02 09:24] LABS: Estradiol 189.8 pg/mL; Luteinizing Hormone 3.9 mIU/mL
[2022-02-02 09:32] LABS: Progesterone Level < 0.21 ng/mL (See Comment)
== END | disposition home or self-care (01) ==
LOC: US 08:01 → LAB 08:34
PROVIDERS: PCP Family Medicine; Referring Provider Obstetrics & Gynecology; Visit Provider Obstetrics & Gynecology
DX: Z31.83 Encounter for assisted reproductive fertility procedure cycle (principal)
CPT/HCPCS: 36415; 76830; 82670; 83002; 84144

== ENCOUNTER → 2022-04-02 | Outpatient (CLI) | payer OTHER, BC, SELFPAY ==
--- NOTE | 2022-04-02 07:42 | US_ITS ---
STUDY: ULTRASOUND OF THE FEMALE PELVIS - COMPLETE REASON FOR EXAM: Female, 41 years old. Infertility LMP: 04/01/2022. TECHNIQUE: Transvaginal TECHNICAL QUALITY: Adequate. COMPARISON: Comparison is made with prior study dated 02/02/2022. FINDINGS: The uterus is anteverted and is in a midline position. The uterus measures 9.6 cm x 5.2 cm x 4.3 cm. There is a Nabothian cyst of the cervix. The endometrium measures 3.8 mm in thickness, and is hyperechoic. There is no demonstrated endometrial mass. The uterus is of heterogeneous echotexture. There is a 1.6 cm x 1.3 cm x 0.6 cm uterine fibroid. There is also evidence of a 3 mm x 3 mm x 2 mm uterine fibroid. I.U.D. - The patient does not have an I.U.D. The right ovary is visualized. The right ovary measures 2.4 cm x 2 cm x 1.8 cm. A 7 mm x 8 mm x 6 mm follicle is seen within it. There is no visualized right adnexal mass or complex lesion. There is normal arterial and normal venous vascularity. The left ovary is visualized. The left ovary measures 2.5 cm x 2.2 cm x 1.2 cm. A dominant follicle is seen measuring 1.2 cm x 1 cm x 0.8 cm. There is no visualized left adnexal mass or complex lesion. There is normal arterial and normal venous vascularity. There is no fluid in the cul-de-sac. US/Transvaginal Non- IMPRESSION: Fibroid uterus. Dominant follicle is seen in the left ovary. Electronically Signed: Alphonso Mcgovern MD at 10:29 EDT ,
[2022-04-02 08:29] LABS: hCG Titer Quant., Serum < 1 mIU/mL (1-3)
[2022-04-02 08:35] LABS: Follicle Stimulating Hormone 7.8 mIU/mL; Luteinizing Hormone 4.9 mIU/mL; Thyroid Stim Hormone (TSH) 1.71 uIU/mL (0.358-3.74)
== END | disposition home or self-care (01) ==
LOC: US 07:32
PROVIDERS: PCP Family Medicine; Referring Provider Obstetrics & Gynecology; Visit Provider Obstetrics & Gynecology
DX: Z31.83 Encounter for assisted reproductive fertility procedure cycle (principal)
CPT/HCPCS: 36415; 76830; 82670; 83001; 83002; 84144; 84443; 84702

== ENCOUNTER → 2022-04-08 | Outpatient (CLI) | payer OTHER, BC, SELFPAY ==
--- NOTE | 2022-04-08 07:22 | US_ITS ---
STUDY: ULTRASOUND OF THE FEMALE PELVIS - COMPLETE REASON FOR EXAM: Female, 41 years old. Infertility LMP: 04/01/2022. TECHNIQUE: Transvaginal TECHNICAL QUALITY: Adequate. COMPARISON: Comparison is made with prior study dated 04/02/2022. FINDINGS: The uterus is anteverted and is in a midline position. The uterus measures 9.8 cm x 5.8 cm x 4.3 cm. There is a Nabothian cyst of the cervix. The endometrium measures 6 mm in thickness, and is hyperechoic. There is no demonstrated endometrial mass. There is heterogeneous appearance of the uterine myometrium. This is in keeping with fibroid change. There is evidence of a 1.5 cm x 1.1 cm x 0.8 cm uterine fibroid. I.U.D. - The patient does not have an I.U.D. The right ovary is visualized. The right ovary measures 3.2 cm x 3 cm x 2.2 cm. There is a 1 cm x 1.7 cm x 1.4 cm dominant follicle in the right ovary. There is no visualized right adnexal mass or complex lesion. There is normal arterial and normal venous vascularity. The left ovary is visualized. The left ovary measures 2.5 cm x 1.9 cm x 1.5 cm. There is a 8 mm x 6 mm x 6 mm follicle. There is no visualized left adnexal mass or complex lesion. There is normal arterial and normal venous vascularity. There is no fluid in the cul-de-sac. US/Transvaginal Non- IMPRESSION: Fibroid uterus as described. A dominant follicle measuring 1 cm x 1.7 cm x 1.4 cm is seen in the right ovary. Electronically Signed: Alphonso Mcgovern MD at 11:12 EDT ,
[2022-04-08 08:16] LABS: Absolute Neutrophil Count 2.9 X10^3/uL (2.0-7.7); Basophil# 0.01 X10^3/uL; Basophil% 0.2 % (0-1); Eosinophil# 0.07 X10^3/uL; Eosinophils% 1.2 % (0-5); Hematocrit 38.1 % (37-47); Hemoglobin 12.3 g/dL (12.0-15.0); Lymphocyte % 38.8 % (19-41); Mean Corp Hgb Conc 32.3 g/dL (32-36); Mean Corpuscular Hgb 28.5 pg (27.0-32.0); Mean Corpuscular Volume 88.2 fL (81-99); Mean Platelet Vol. 9.8 fl (6.2-12.0); Monocyte# 0.46 X10^3/uL; Monocyte% 8.1 % (0-10); NRBC Flagged by Analyzer 0 % (0-5); Neutrophil # 2.92 X10^3/uL (2.7-7.7); Neutrophil % 51.5 % (47-70); Platelet Count 257 K/mm3 (150-450); RBC Distribution Width CV 12.8 % (11.6-14.6); RBC Distribution Width SD 41.8 fl (35.1-43.9); Red Blood Count 4.32 M/mm3 (4.2-5.4); White Blood Count 5.7 K/mm3 (4.4-11.0)
[2022-04-08 08:55] LABS: Estradiol 48.6 pg/mL; Luteinizing Hormone 4.1 mIU/mL
[2022-04-08 09:16] LABS: Progesterone Level 0.28 ng/mL (See Comment); Vitamin D,25 Hydroxy 25.4 ng/mL
== END | disposition home or self-care (01) ==
PROVIDERS: PCP Family Medicine; Referring Provider Obstetrics & Gynecology; Visit Provider Obstetrics & Gynecology
DX: Z31.83 Encounter for assisted reproductive fertility procedure cycle (principal); N94.6 Dysmenorrhea, unspecified
CPT/HCPCS: 36415; 76830; 82306; 82670; 83002; 84144; 85025

== ENCOUNTER → 2022-04-13 | Outpatient (CLI) | payer OTHER, BC, SELFPAY ==
--- NOTE | 2022-04-13 07:51 | US_ITS ---
STUDY: ULTRASOUND OF THE FEMALE PELVIS - COMPLETE REASON FOR EXAM: Female, 41 years old. Fertility -- I LMP: 04/01/2022. TECHNIQUE: Transvaginal TECHNICAL QUALITY: Adequate. COMPARISON: Comparison is made with prior study 04/08/2022. FINDINGS: The uterus is anteverted and is in a midline position. The uterus measures 10 cm x 5.5 cm x 4.5 cm. There is a Nabothian cyst of the cervix. The endometrium measures 5.9 mm in thickness, and is hyperechoic. There is no demonstrated endometrial mass. There is a 1.3 cm x 1.3 cm x 0.5 cm fibroid in the body of the uterus. I.U.D. - The patient does not have an I.U.D. The right ovary is visualized. The right ovary measures 4 cm x 3.5 cm x 3.0 cm. There is a 2.6 cm x 2.7 cm x 2.3 cm right ovarian cyst. There is no visualized right adnexal mass or complex lesion. There is normal arterial and normal venous vascularity. The left ovary is visualized. The left ovary measures 2.7 cm x 2.5 cm x 1.1 cm. There is a 6 mm x 6 mm x 5 mm follicle. There is no visualized left adnexal mass or complex lesion. There is normal arterial and normal venous vascularity. There is no fluid in the cul-de-sac. US/Transvaginal Non- IMPRESSION: Stable fibroid uterus. 2.6 cm x 2.7 cm x 2.3 cm right ovarian cyst. 6 mm x 6 mm x 5 mm left ovarian follicle. The endometrium measures 5.9 mm. Electronically Signed: Alphonso Mcgovern MD at 9:46 EDT ,
[2022-04-13 09:35] LABS: Estradiol 141.4 pg/mL; Luteinizing Hormone 7.8 mIU/mL; Progesterone Level 0.36 ng/mL (See Comment)
== END | disposition home or self-care (01) ==
PROVIDERS: PCP Family Medicine; Referring Provider Obstetrics & Gynecology; Visit Provider Obstetrics & Gynecology
DX: Z31.83 Encounter for assisted reproductive fertility procedure cycle (principal)
CPT/HCPCS: 36415; 76830; 82670; 83002; 84144

== ENCOUNTER → 2022-04-15 | Outpatient (CLI) | payer OTHER, BC, SELFPAY ==
[2022-04-15 10:13] LABS: Estradiol 226.9 pg/mL; Luteinizing Hormone 51.9 mIU/mL; Progesterone Level 1.28 ng/mL (See Comment)
--- NOTE | 2022-04-15 13:46 | US_ITS ---
STUDY: ULTRASOUND OF THE FEMALE PELVIS - COMPLETE REASON FOR EXAM: Female, 41 years old. fertility TECHNIQUE: Endovaginal. Transvaginal US was obtained to better visualized the ovaries. COMPARISON: 04/13/22. FINDINGS: The uterus is anteverted and is in a midline position. The uterus measures 9.7 x 5.8 cm. There is a Nabothian cyst of the cervix. The endometrium measures 11 mm in thickness, and is heterogeneous (striated). There is 2.7 mm cystic area demonstrated in the endometrium. Fibroid in uterus measures 13 mm. I.U.D. - The patient does not have an I.U.D. The right ovary is visualized. The right ovary measures 3.9 x 3.4 cm. There is 31 x 33 mm right ovarian cyst . There is no visualized right adnexal mass or complex lesion. There is normal arterial and normal venous vascularity. The left ovary is visualized. The left ovary measures 2.2 x 1.9 cm. There is no left ovarian cyst or ovarian mass. There is no visualized left adnexal mass or complex lesion. There is normal arterial and normal venous vascularity. There is no fluid in the cul-de-sac. Unremarkable urinary bladder. US/Transvaginal Non- IMPRESSION: There are Nabothian cysts of the cervix. Fibroid. Stable right ovary cyst. Small fluid collection within the uterus. Differential diagnosis includes early IUP with embryonic pole and yolk sac below the limits of sonographic resolution, blighted ovum and pseudo-gestational sac. Correlation with serum quantitative beta-hCG and follow up ultrasound is recommended. The possibility of ectopic cannot be excluded on the basis of this exam. Electronically Signed: Maximilian Mortensen MD at 17:12 EDT ,
== END | disposition home or self-care (01) ==
LOC: OPUS 13:46
PROVIDERS: PCP Family Medicine; Referring Provider Obstetrics & Gynecology; Visit Provider Obstetrics & Gynecology
DX: Z31.83 Encounter for assisted reproductive fertility procedure cycle (principal)
CPT/HCPCS: 36415; 76830; 82670; 83002; 84144

== ENCOUNTER → 2022-05-05 | Outpatient (CLI) | payer OTHER, BC, SELFPAY ==
--- NOTE | 2022-05-05 10:41 | US_ITS ---
INDICATION: infertility EXAMINATION: Ultrasound US Transvaginal Non-OB TECHNIQUE: Transvaginal (for optimal evaluation of the adnexa) pelvic ultrasound was performed. Grayscale, spectral waveform, and color flow Doppler evaluation of the adnexa. COMPARISON: 04/15/2022.. FINDINGS: UTERUS: Anteverted. The uterus measures 9.5 x 5.4 x 4.8 cm. Unknown an ovoid hypoechoic lesion is visualized within the myometrium measuring 1.2 x 1.0 x 0.6 cm suggestive of a uterine fibroid. NABOTHIAN cysts visualized within the cervical canal. The endometrial stripe measures 0.9 cm in AP diameter which is within normal limits. RIGHT OVARY: The right ovary measures 2.1 x 2.1 x 2.2 cm.. Non-enlarged, normal echogenicity. There is normal arterial inflow and venous outflow present in the right ovary. A simple physiologic cyst is visualized in the right ovary measuring 1.5 x 1.1 x 0.9 cm. LEFT OVARY: The left ovary measures 2.4 x 2.1 x 1.7 cm.. Non-enlarged, normal echogenicity. There is normal arterial inflow and venous outflow present in the left ovary.A simple physiologic cyst is visualized in the right ovary measuring 1.0 x 0.8 x 1.0 cm. FREE FLUID: None. US/Transvaginal Non- IMPRESSION: 1.2 cm uterine fibroid otherwise unremarkable pelvic ultrasound. Electronically Signed: Bryan Reyes MD at 11:46 EDT ,
[2022-05-05 11:03] LABS: Progesterone Level 0.37 ng/mL (See Comment)
[2022-05-05 11:09] LABS: hCG Titer Quant., Serum < 1 mIU/mL (1-3)
[2022-05-05 11:14] LABS: Estradiol 46.2 pg/mL; Follicle Stimulating Hormone 8.1 mIU/mL; Luteinizing Hormone 3.8 mIU/mL; Thyroid Stim Hormone (TSH) 1.68 uIU/mL (0.358-3.74)
== END | disposition home or self-care (01) ==
LOC: OPUS 10:29
PROVIDERS: PCP Family Medicine; Referring Provider Obstetrics & Gynecology; Visit Provider Obstetrics & Gynecology
DX: Z31.83 Encounter for assisted reproductive fertility procedure cycle (principal)
CPT/HCPCS: 36415; 76830; 82670; 83001; 83002; 84144; 84443; 84702

== ENCOUNTER → 2022-05-17 | Outpatient (CLI) | payer OTHER, BC, SELFPAY ==
[2022-05-17 13:07] LABS: ALB/GLOB Ratio 0.8 RATIO (0.9-2.4); AST(SGOT) 13 U/L (15-37); Alanine Aminotransfer ALT/SGPT 22 U/L (13-56); Albumin, Serum 3.2 g/dL (3.2-5.0); Alkaline Phosphatase 83 U/L (45-117); Anion Gap 6 (5-15); BUN 9 mg/dL (7-18); BUN/Creat Ratio 10.5 RATIO (10-20); Chloride 108 mmol/L (98-107); Cholesterol 165 mg/dL (200); Creatinine, Serum 0.86 mg/dL (0.55-1.02); EST Glomerular Filtration Rate 77 mL/min (>60); Est Glom Filt Rate - Afr Amer 93 mL/min (>60); Globulin 3.8 g/dL (2.2-4.2); Glucose 91 mg/dL (74-106); High Density Lipoprotein 41 mg/dL; Magnesium 2.1 mg/dL (1.6-2.6); Potassium 4.1 mmol/L (3.5-5.1); Sodium Level 139 mmol/L (136-145); Triglycerides 273 mg/dL; Very Low Density Lipoprotein 55 mg/dL (5-40)
== END | disposition home or self-care (01) ==
LOC: LAB 09:23 → BFHLAB 12:20
PROVIDERS: PCP Family Medicine; Visit Provider Family Medicine
DX: R00.2 Palpitations (principal); K76.0 Fatty (change of) liver, not elsewhere classified
CPT/HCPCS: 36415; 80053; 80061; 83735

== ENCOUNTER → 2022-05-24 | Outpatient (CLI) | payer OTHER, BC, SELFPAY | END | disposition home or self-care (01) | LOC: PSN 07:35 | PROVIDERS: PCP Family Medicine; Referring Provider Family Medicine; Visit Provider Family Medicine | DX: R00.2 Palpitations (principal) | CPT/HCPCS: 93225; 93226 ==

== ENCOUNTER → 2022-06-09 | Outpatient (CLI) | payer OTHER, BC, SELFPAY ==
--- NOTE | 2022-06-09 07:28 | US_ITS ---
STUDY: ULTRASOUND OF THE FEMALE PELVIS - COMPLETE REASON FOR EXAM: Female, 41 years old. fertility LMP: 06/09/2022. TECHNIQUE: Transvaginal TECHNICAL QUALITY: Adequate. COMPARISON: Comparison is made with prior study dated 05/05/2022. FINDINGS: The uterus is anteverted and is in a midline position. The uterus measures 9.4 cm x 5.6 cm x 4.3 cm. There is a Nabothian cyst of the cervix. The endometrium measures 9.8 mm in thickness, and is hyperechoic. There is no demonstrated endometrial mass. There is a 1.6 cm x 1.3 cm x 0.8 cm uterine fibroid. I.U.D. - The patient does not have an I.U.D. The right ovary is visualized. The right ovary measures 2.2 cm x 2.2 cm x 1.2 cm. A dominant follicle is seen within the right ovary measuring 6.5 mm x 5.4 mm x 6.1 mm. There is no visualized right adnexal mass or complex lesion. There is normal arterial and normal venous vascularity. The left ovary is visualized. The left ovary measures 4.5 cm x 4 cm x 2.3 cm. There is a 3.3 cm x 2.9 cm x 2.3 cm left ovarian cyst. There is no visualized left adnexal mass or complex lesion. There is normal arterial and normal venous vascularity. There is no fluid in the cul-de-sac. US/Transvaginal Non- IMPRESSION: 3.3 cm x 2.9 cm x 2.3 cm left ovarian cyst. Stable small uterine fibroid. Electronically Signed: Alphonso Mcgovern MD at 10:22 EDT ,
[2022-06-09 08:55] LABS: hCG Titer Quant., Serum < 1 mIU/mL (1-3)
[2022-06-09 08:57] LABS: Progesterone Level 0.84 ng/mL (See Comment)
[2022-06-09 09:01] LABS: Estradiol 33.8 pg/mL; Follicle Stimulating Hormone 11.9 mIU/mL; Luteinizing Hormone 5.3 mIU/mL; Thyroid Stim Hormone (TSH) 1.99 uIU/mL (0.358-3.74)
== END | disposition home or self-care (01) ==
PROVIDERS: PCP Family Medicine; Referring Provider Obstetrics & Gynecology; Visit Provider Obstetrics & Gynecology
DX: Z31.83 Encounter for assisted reproductive fertility procedure cycle (principal)
CPT/HCPCS: 36415; 76830; 82670; 83001; 83002; 84144; 84443; 84702

== ENCOUNTER → 2022-06-11 | Outpatient (CLI) | payer OTHER, BC, SELFPAY ==
--- NOTE | 2022-06-11 09:56 | US_ITS ---
STUDY: ULTRASOUND OF THE FEMALE PELVIS - COMPLETE REASON FOR EXAM: Female, 41 years old. Infertility. -- PREVIOUS SCAN 06/09/22 -- LMP 06/09/22 LMP: 06/09/2022 TECHNIQUE: Transvaginal TECHNICAL QUALITY: Adequate. COMPARISON: Comparison is made with prior study dated 06/09/2022. FINDINGS: The uterus is anteverted and is in a midline position. The uterus measures 9.8 cm x 5.6 cm x 4.5 cm. There is a Nabothian cyst of the cervix. The endometrium measures 8 mm in thickness, and is hyperechoic. There is no demonstrated endometrial mass. There is a 1.6 x 1.3 cm x 0.5 cm uterine fibroid. I.U.D. - The patient does not have an I.U.D. The right ovary is visualized. The right ovary measures 2.8 cm x 3.2 cm x 2.1 cm. A dominant follicle is seen within the ovary measuring 10 mm x 7 mm x 9 mm. There is no visualized right adnexal mass or complex lesion. There is normal arterial and normal venous vascularity. The left ovary is visualized. The left ovary measures 4.2 cm x 2.7 cm x 2.1 cm. There is a 2.5 cm x 2.5 cm x 1.8 cm cyst within the ovary. This has decreased in size as compared to prior study. There is no visualized left adnexal mass or complex lesion. There is normal arterial and normal venous vascularity. There is no fluid in the cul-de-sac. US/Transvaginal Non- IMPRESSION: Interval decrease in size of the left ovarian cyst. The remainder of the examination is unchanged. Electronically Signed: Alphonso Mcgovern MD at 11:04 EDT ,
[2022-06-11 11:52] LABS: Estradiol 51.7 pg/mL
== END | disposition home or self-care (01) ==
PROVIDERS: PCP Family Medicine; Referring Provider Obstetrics & Gynecology; Visit Provider Obstetrics & Gynecology
DX: Z31.83 Encounter for assisted reproductive fertility procedure cycle (principal)
CPT/HCPCS: 36415; 76830; 82670; 84144

== ENCOUNTER → 2022-06-18 | Outpatient (CLI) | payer OTHER, BC, SELFPAY ==
--- NOTE | 2022-06-18 08:18 | US_ITS ---
STUDY: ULTRASOUND OF THE FEMALE PELVIS - COMPLETE REASON FOR EXAM: Female, 41 years old. Infertility LMP: 06/09/2022. TECHNIQUE: Transvaginal TECHNICAL QUALITY: Adequate. COMPARISON: Comparison is made with prior study dated 06/11/2022. FINDINGS: The uterus is anteverted and is tilted to the left side of the pelvis. The uterus measures 10 cm x 5.7 cm x 4.7 cm. There is a Nabothian cyst of the cervix. The endometrium measures 10 mm in thickness, and is heterogeneous (striated). There is no demonstrated endometrial mass. Stable 1.2 cm x 0.7 cm x 0.6 cm uterine fibroid. I.U.D. - The patient does not have an I.U.D. The right ovary is visualized. The right ovary measures 2.1 cm x 1.7 cm x 1.6 cm. Small follicles are seen within it. The largest follicle measures 1 cm x 1 cm x 0.8 cm. There is no visualized right adnexal mass or complex lesion. There is normal arterial and normal venous vascularity. The left ovary is visualized. The left ovary measures 3.3 cm x 1.8 cm x 1.7 cm. Several small follicles are seen. The largest follicle measures 1.7 cm x 1.7 cm x 1.3 cm. There is no visualized left adnexal mass or complex lesion. There is normal arterial and normal venous vascularity. There is minimal fluid in the cul-de-sac. US/Transvaginal Non- IMPRESSION: Small follicles are seen in both ovaries. Stable small uterine fibroid. Minimal amount of free fluid in the pelvis. Electronically Signed: Alphonso Mcgovern MD at 9:12 EDT ,
[2022-06-18 09:14] LABS: Estradiol 210.5 pg/mL; Luteinizing Hormone 15.7 mIU/mL
[2022-06-18 09:23] LABS: Progesterone Level 0.41 ng/mL (See Comment)
== END | disposition home or self-care (01) ==
PROVIDERS: PCP Family Medicine; Visit Provider Obstetrics & Gynecology
DX: Z31.83 Encounter for assisted reproductive fertility procedure cycle (principal)
CPT/HCPCS: 36415; 76830; 82670; 83002; 84144

== ENCOUNTER 2022-06-28 07:51 | Outpatient (CLI) | payer OTHER, BC, SELFPAY ==
[2022-06-28 08:30] LABS: Estradiol 140.7 pg/mL
[2022-06-28 08:33] LABS: Progesterone Level 38.51 ng/mL (See Comment)
== END 2022-06-28 23:59 | disposition home or self-care (01) ==
LOC: LAB 07:53
PROVIDERS: PCP Family Medicine; Visit Provider Obstetrics & Gynecology Reproductive Endocrinology
DX: Z31.49 Encounter for other procreative investigation and testing (principal)
CPT/HCPCS: 36415; 82670; 84144

== ENCOUNTER 2022-07-03 07:41 | Outpatient (CLI) | payer OTHER, BC, SELFPAY ==
[2022-07-03 08:44] LABS: hCG Titer Quant., Serum 140 mIU/mL (1-3)
[2022-07-05 10:24] LABS: Progesterone Level 29.86 ng/mL (See Comment)
== END 2022-07-03 23:59 | disposition home or self-care (01) ==
LOC: LAB 07:43
PROVIDERS: PCP Family Medicine; Referring Provider Obstetrics & Gynecology Reproductive Endocrinology; Visit Provider Obstetrics & Gynecology Reproductive Endocrinology
DX: Z32.00 Encounter for pregnancy test, result unknown (principal)
CPT/HCPCS: 36415; 84144; 84702

== ENCOUNTER 2022-07-06 07:33 | Outpatient (CLI) | payer OTHER, BC, SELFPAY ==
[2022-07-06 08:12] LABS: hCG Titer Quant., Serum 665 mIU/mL (1-3)
[2022-07-06 08:18] LABS: Estradiol 158.9 pg/mL; Thyroid Stim Hormone (TSH) 1.81 uIU/mL (0.358-3.74)
[2022-07-06 08:48] LABS: Progesterone Level 39.01 ng/mL (See Comment)
== END 2022-07-06 23:59 | disposition home or self-care (01) ==
PROVIDERS: PCP Family Medicine; Referring Provider Obstetrics & Gynecology; Visit Provider Obstetrics & Gynecology
DX: Z31.83 Encounter for assisted reproductive fertility procedure cycle (principal)
CPT/HCPCS: 36415; 82670; 84144; 84443; 84702

== ENCOUNTER 2022-07-12 12:20 | Outpatient (CLI) | payer OTHER, BC, SELFPAY ==
[2022-07-12 13:09] LABS: Progesterone Level 25.19 ng/mL (See Comment)
[2022-07-12 13:33] LABS: Estradiol 266.2 pg/mL; Luteinizing Hormone < 0.2 mIU/mL
[2022-07-12 14:04] LABS: hCG Titer Quant., Serum 7812 mIU/mL (1-3)
== END 2022-07-12 23:59 | disposition home or self-care (01) ==
LOC: LAB 12:21
PROVIDERS: PCP Family Medicine; Referring Provider Obstetrics & Gynecology; Visit Provider Obstetrics & Gynecology
DX: Z31.83 Encounter for assisted reproductive fertility procedure cycle (principal); O09.90 Supervision of high risk pregnancy, unspecified, unspecified trimester
CPT/HCPCS: 36415; 82670; 83002; 84144; 84702

== ENCOUNTER → 2022-07-23 | Outpatient (CLI) | payer OTHER, BC, SELFPAY ==
[2022-07-23 10:58] LABS: Progesterone Level 48.49 ng/mL (See Comment)
[2022-07-23 11:04] LABS: Estradiol 363.2 pg/mL
[2022-07-26 21:07] LABS: Chlamydia By Nucleic Acid AMP Negative (Negative)
[2022-07-27 16:27] LABS: Gonococcus By Nucleic Acid AMP Negative (Negative)
== END | disposition home or self-care (01) ==
LOC: LAB 14:45 → LABSPEC 14:46
PROVIDERS: PCP Family Medicine; Referring Provider Obstetrics & Gynecology; Visit Provider Obstetrics & Gynecology
DX: Z34.90 Encounter for supervision of normal pregnancy, unspecified, unspecified trimester (principal); N91.2 Amenorrhea, unspecified; N97.9 Female infertility, unspecified
CPT/HCPCS: 36415; 82670; 84144; 84702; 87086; 87491; 87591

== ENCOUNTER → 2022-08-23 | Outpatient (CLI) | payer BC, SELFPAY ==
[2022-08-23 09:17] LABS: Absolute Neutrophil Count 5.8 X10^3/uL (2.0-7.7); Basophil# 0.02 X10^3/uL; Basophil% 0.2 % (0-1); Eosinophil# 0.08 X10^3/uL; Eosinophils% 0.9 % (0-5); Hematocrit 37.7 % (37-47); Lymphocyte % 26.7 % (19-41); Mean Corp Hgb Conc 31.8 g/dL (32-36); Mean Corpuscular Hgb 28.4 pg (27.0-32.0); Mean Corpuscular Volume 89.1 fL (81-99); Mean Platelet Vol. 9.9 fl (6.2-12.0); Monocyte# 0.71 X10^3/uL; Monocyte% 7.9 % (0-10); NRBC Flagged by Analyzer 0.2 % (0-5); Neutrophil # 5.76 X10^3/uL (2.7-7.7); Neutrophil % 64.1 % (47-70); Platelet Count 281 K/mm3 (150-450); RBC Distribution Width CV 13.2 % (11.6-14.6); RBC Distribution Width SD 43.2 fl (35.1-43.9); Red Blood Count 4.23 M/mm3 (4.2-5.4)
[2022-08-23 09:25] LABS: Protein, Urine (Random) 14.2 mg/dL (<11.9); Protein:Creat Ratio 48 mg/g CRE (0-200)
[2022-08-23 09:28] LABS: Amphetamine Urine VISTA NEGATIVE (<1000 ng/mL); Barbiturate Urine VISTA NEGATIVE (< 200 ng/mL); Benzodiazepine Urine VISTA NEGATIVE (< 200 ng/mL); Cocaine Urine VISTA NEGATIVE (< 300 ng/mL); Ecstacy Urine VISTA NEGATIVE (< 500 ng/mL); Methadone Urine VISTA NEGATIVE (< 300 ng/mL); PCP Urine VISTA NEGATIVE (< 25 ng/mL); THC Urine VISTA NEGATIVE (< 50 ng/mL); Vista UDS pH Range 5
[2022-08-23 09:34] LABS: NATERA MAILED SPECIMEN
[2022-08-23 10:22] LABS: HIV - WCH Non-Reactive (Nonreactive); Hepatitis B Surface Antigen Non-Reactive (Nonreactive); Hepatitis C Antibody Non-Reactive (Nonreactive); Rubella IgG Reactive (Nonreactive); Syphilis Antibodies Non-reactive
== END | disposition home or self-care (01) ==
PROVIDERS: Obstetrics & Gynecology; PCP Family Medicine; Referring Provider Obstetrics & Gynecology; Visit Provider Obstetrics & Gynecology
DX: Z34.90 Encounter for supervision of normal pregnancy, unspecified, unspecified trimester (principal); I10 Essential (primary) hypertension
CPT/HCPCS: 36415; 80307; 82570; 84156; 85025; 86703; 86762; 86780; 86803; 86850; 86900; 86901; 87340

== ENCOUNTER → 2022-09-01 | Outpatient (CLI) | payer BC, SELFPAY ==
[2022-09-01 09:29] LABS: Glucose Challenge Gest 1H 50g 139 mg/dL (70-140)
== END | disposition home or self-care (01) ==
LOC: LABSPEC 07:53 → LAB 07:55
PROVIDERS: PCP Family Medicine; Referring Provider Obstetrics & Gynecology; Visit Provider Obstetrics & Gynecology
DX: O99.211 Obesity complicating pregnancy, first trimester (principal); Z3A.09 9 weeks gestation of pregnancy
CPT/HCPCS: 36415; 82950

== ENCOUNTER → 2022-09-14 | Outpatient (CLI) | payer BC, SELFPAY ==
--- NOTE | 2022-09-14 14:26 | US_ITS ---
STUDY: SECOND AND THIRD TRIMESTER OBSTETRICAL ULTRASOUND - LIMITED REASON FOR EXAM: Female, 41 years old viability LMP: 06/06/2022. PRIOR ULTRASOUND: None. TECHNIQUE: Transabdominal TECHNICAL QUALITY: Adequate. FINDINGS: There is a single intrauterine fetus. The fetus is in a cephalic presentation. There is demonstrated cardiac activity with a heart rate of 152 bpm. There is a normal amniotic fluid volume. The largest amniotic fluid pocket measures 2.7 cm. The amniotic fluid index (KEYSHA) is within normal limits. The placenta is posterior in location and is not low lying. There are Grade 0 placental changes. The cervix measures 4.4 cm in length. BIOMETRY: BPD: 2.95 cm: 15 weeks, 3 days HC: 11.03 cm: 15 weeks, 2 days AC: 9.27 cm: 15 weeks, 3 days FL: 1.7 cm: 15 weeks, 0 days Age by LMP: 14 weeks, 2 days. RAULITO by LMP: 03/13/2023. age by current US: 15 weeks, 2 days. RAULITO by current US: 03/06/2023. Estimated weight: 119 grams, +/- 18 grams, 92 percentile. US/OB Limited With Biometrics IMPRESSION: Single live intrauterine gestation with a mean gestational age of 14 weeks and 2 days. Electronically Signed: Alphonso Mcgovern MD at 15:41 EST ,
== END | disposition home or self-care (01) ==
LOC: OPUS 14:24
PROVIDERS: PCP Family Medicine; Referring Provider Obstetrics & Gynecology; Visit Provider Obstetrics & Gynecology
DX: O09.512 Supervision of elderly primigravida, second trimester (principal); Z3A.14 14 weeks gestation of pregnancy; I10 Essential (primary) hypertension; O41.8X90 Other specified disorders of amniotic fluid and membranes, unspecified trimester, not applicable or unspecified; O46.8X9 Other antepartum hemorrhage, unspecified trimester
CPT/HCPCS: 76816

== ENCOUNTER → 2022-09-22 | Outpatient (CLI) | payer BC, SELFPAY ==
[2022-09-22 07:57] LABS: Glucose GTT-Gestation. Fasting 95 mg/dL (<105)
[2022-09-22 09:19] LABS: Glucose GTT-Gestational 1 Hr 146 mg/dL (<190)
[2022-09-22 10:06] LABS: Glucose GTT-Gestational 2 Hr 115 mg/dL (<165)
[2022-09-22 11:40] LABS: Glucose GTT-Gestational 3 Hr 66 L (<145)
== END | disposition home or self-care (01) ==
LOC: LAB 07:02
PROVIDERS: PCP Family Medicine; Referring Provider Nurse Practitioner Women's Health; Visit Provider Nurse Practitioner Women's Health
DX: Z13.1 Encounter for screening for diabetes mellitus (principal)
CPT/HCPCS: 36415; 82951; 82952

== ENCOUNTER → 2022-10-27 | Outpatient (CLI) | payer BC, SELFPAY ==
[2022-10-27 16:46] LABS: Absolute Lymphocyte Count 2.69 X10^3/uL (0.83-4.51); Basophil# 0.01 X10^3/uL; Basophil% 0.1 % (0-1); Eosinophil# 0.08 X10^3/uL; Eosinophils% 0.6 % (0-5); Hematocrit 34.2 % (37-47); Hemoglobin 10.9 g/dL (12.0-15.0); Lymphocyte # 2.69 X10^3/ul (0.83-4.51); Lymphocyte % 21.2 % (19-41); Mean Corp Hgb Conc 31.9 g/dL (32-36); Mean Corpuscular Hgb 28.8 pg (27.0-32.0); Mean Corpuscular Volume 90.5 fL (81-99); Mean Platelet Vol. 9.8 fl (6.2-12.0); Monocyte# 0.82 X10^3/uL; Monocyte% 6.5 % (0-10); NRBC Flagged by Analyzer 0 % (0-5); Neutrophil # 9.03 X10^3/uL (2.7-7.7); Neutrophil % 71.1 % (47-70); Platelet Count 290 K/mm3 (150-450); RBC Distribution Width CV 13.4 % (11.6-14.6); Red Blood Count 3.78 M/mm3 (4.2-5.4); White Blood Count 12.7 K/mm3 (4.4-11.0)
[2022-10-27 17:13] LABS: ALB/GLOB Ratio 0.7 RATIO (0.9-2.4); AST(SGOT) 11 U/L (15-37); Alanine Aminotransfer ALT/SGPT 13 U/L (13-56); Albumin, Serum 2.8 g/dL (3.2-5.0); Alkaline Phosphatase 64 U/L (45-117); Anion Gap 9 (5-15); BUN 7 mg/dL (7-18); Calcium,Total 9.4 mg/dL (8.5-10.1); Chloride 106 mmol/L (98-107); Creatinine, Serum 0.78 mg/dL (0.55-1.02); EST Glomerular Filtration Rate 86 mL/min (>60); Est Glom Filt Rate - Afr Amer 104 mL/min (>60); Glucose 100 mg/dL (74-106); Potassium 3.9 mmol/L (3.5-5.1); Protein, Total 6.8 g/dL (6.4-8.2); Sodium Level 138 mmol/L (136-145)
[2022-10-27 19:00] LABS: Protein, Urine (Random) 35.4 mg/dL (<11.9); Protein:Creat Ratio 73 mg/g CRE (0-200)
== END | disposition home or self-care (01) ==
PROVIDERS: PCP Family Medicine; Visit Provider Obstetrics & Gynecology
DX: O12.10 Gestational proteinuria, unspecified trimester (principal); Z3A.00 Weeks of gestation of pregnancy not specified
CPT/HCPCS: 36415; 80053; 82570; 84156; 85025

== ENCOUNTER → 2022-12-22 | Outpatient (CLI) | payer BC, SELFPAY ==
[2022-12-22 10:36] LABS: Absolute Neutrophil Count 7.6 X10^3/uL (2.0-7.7); Basophil# 0.02 X10^3/uL; Basophil% 0.2 % (0-1); Eosinophil# 0.06 X10^3/uL; Eosinophils% 0.6 % (0-5); Hematocrit 33.5 % (37-47); Hemoglobin 10.3 g/dL (12.0-15.0); Lymphocyte % 19.3 % (19-41); Mean Corp Hgb Conc 30.7 g/dL (32-36); Mean Corpuscular Hgb 28.7 pg (27.0-32.0); Mean Corpuscular Volume 93.3 fL (81-99); Mean Platelet Vol. 9.9 fl (6.2-12.0); Monocyte# 0.65 X10^3/uL; Monocyte% 6.3 % (0-10); NRBC Flagged by Analyzer 0 % (0-5); Neutrophil # 7.61 X10^3/uL (2.7-7.7); Neutrophil % 73.2 % (47-70); Platelet Count 291 K/mm3 (150-450); RBC Distribution Width SD 47.4 fl (35.1-43.9); Red Blood Count 3.59 M/mm3 (4.2-5.4); White Blood Count 10.4 K/mm3 (4.4-11.0)
[2022-12-22 11:13] LABS: HIV - WCH Non-Reactive (Nonreactive); Syphilis Antibodies Non-reactive
[2022-12-22 11:38] LABS: Glucose GTT-Gestational 1 Hr 166 mg/dL (<190)
[2022-12-22 11:41] LABS: Glucose GTT-Gestation. Fasting 89 mg/dL (<105)
[2022-12-22 12:51] LABS: Glucose GTT-Gestational 2 Hr 123 mg/dL (<165)
[2022-12-22 13:51] LABS: Glucose GTT-Gestational 3 Hr 61 L (<145)
== END | disposition home or self-care (01) ==
LOC: LAB 09:47
PROVIDERS: Referring Provider Obstetrics & Gynecology; Visit Provider Obstetrics & Gynecology
DX: O09.90 Supervision of high risk pregnancy, unspecified, unspecified trimester (principal); Z3A.00 Weeks of gestation of pregnancy not specified; O99.810 Abnormal glucose complicating pregnancy
CPT/HCPCS: 36415; 82951; 82952; 85025; 86703; 86780

== ENCOUNTER → 2023-01-28 | Outpatient (CLI) | payer BC, SELFPAY ==
[2023-01-28 13:29] LABS: Absolute Lymphocyte Count 2.46 X10^3/uL (0.83-4.51); Basophil# 0.02 X10^3/uL; Basophil% 0.2 % (0-1); Eosinophil# 0.04 X10^3/uL; Eosinophils% 0.3 % (0-5); Hematocrit 33.4 % (37-47); Hemoglobin 10.3 g/dL (12.0-15.0); Lymphocyte # 2.46 X10^3/ul (0.83-4.51); Lymphocyte % 19.7 % (19-41); Mean Corp Hgb Conc 30.8 g/dL (32-36); Mean Corpuscular Hgb 28.9 pg (27.0-32.0); Mean Corpuscular Volume 93.8 fL (81-99); Mean Platelet Vol. 9.8 fl (6.2-12.0); Monocyte# 0.85 X10^3/uL; Monocyte% 6.8 % (0-10); NRBC Flagged by Analyzer 0 % (0-5); Neutrophil # 9.04 X10^3/uL (2.7-7.7); Neutrophil % 72.5 % (47-70); Platelet Count 277 K/mm3 (150-450); RBC Distribution Width CV 14.2 % (11.6-14.6); RBC Distribution Width SD 48.5 fl (35.1-43.9); Red Blood Count 3.56 M/mm3 (4.2-5.4); White Blood Count 12.5 K/mm3 (4.4-11.0)
[2023-01-28 14:00] LABS: ALB/GLOB Ratio 0.6 RATIO (0.9-2.4); AST(SGOT) 14 U/L (15-37); Alanine Aminotransfer ALT/SGPT 12 U/L (13-56); Albumin, Serum 2.5 g/dL (3.2-5.0); Alkaline Phosphatase 88 U/L (45-117); Anion Gap 9 (5-15); BUN 6 mg/dL (7-18); BUN/Creat Ratio 8.5 RATIO (10-20); Calcium,Total 8.9 mg/dL (8.5-10.1); Chloride 106 mmol/L (98-107); EST Glomerular Filtration Rate 96 mL/min (>60); Est Glom Filt Rate - Afr Amer 117 mL/min (>60); Glucose 81 mg/dL (74-106); Potassium 4.3 mmol/L (3.5-5.1); Protein, Total 6.5 g/dL (6.4-8.2); Sodium Level 138 mmol/L (136-145); Uric Acid 3.4 mg/dL (2.6-6.0)
== END | disposition home or self-care (01) ==
LOC: LAB 12:37
PROVIDERS: Referring Provider Registered Nurse; Visit Provider Registered Nurse
DX: I10 Essential (primary) hypertension (principal)
CPT/HCPCS: 36415; 80053; 84550; 85025

== ENCOUNTER → 2023-02-02 | Outpatient (CLI) | payer BC, SELFPAY ==
[2023-02-02 11:36] LABS: Absolute Lymphocyte Count 2.25 X10^3/uL (0.83-4.51); Absolute Neutrophil Count 9.8 X10^3/uL (2.0-7.7); Basophil# 0.02 X10^3/uL; Basophil% 0.2 % (0-1); Eosinophil# 0.04 X10^3/uL; Eosinophils% 0.3 % (0-5); Hematocrit 32.9 % (37-47); Hemoglobin 10.3 g/dL (12.0-15.0); Lymphocyte # 2.25 X10^3/ul (0.83-4.51); Lymphocyte % 17.3 % (19-41); Mean Corp Hgb Conc 31.3 g/dL (32-36); Mean Corpuscular Volume 92.7 fL (81-99); Mean Platelet Vol. 9.8 fl (6.2-12.0); Monocyte# 0.81 X10^3/uL; Monocyte% 6.2 % (0-10); NRBC Flagged by Analyzer 0 % (0-5); Neutrophil % 75.6 % (47-70); Platelet Count 290 K/mm3 (150-450); RBC Distribution Width SD 47.5 fl (35.1-43.9); Red Blood Count 3.55 M/mm3 (4.2-5.4)
[2023-02-02 11:55] LABS: Protein, Urine (Random) 21.3 mg/dL (<11.9); Protein:Creat Ratio 94 mg/g CRE (0-200)
[2023-02-02 12:05] LABS: ALB/GLOB Ratio 0.6 RATIO (0.9-2.4); AST(SGOT) 14 U/L (15-37); Alanine Aminotransfer ALT/SGPT 12 U/L (13-56); Albumin, Serum 2.4 g/dL (3.2-5.0); Alkaline Phosphatase 83 U/L (45-117); Anion Gap 6 (5-15); BUN 7 mg/dL (7-18); BUN/Creat Ratio 9.8 RATIO (10-20); Calcium,Total 8.6 mg/dL (8.5-10.1); Chloride 108 mmol/L (98-107); Creatinine, Serum 0.71 mg/dL (0.55-1.02); EST Glomerular Filtration Rate 95 mL/min (>60); Est Glom Filt Rate - Afr Amer 115 mL/min (>60); Globulin 3.9 g/dL (2.2-4.2); Glucose 86 mg/dL (74-106); Potassium 3.9 mmol/L (3.5-5.1); Protein, Total 6.3 g/dL (6.4-8.2); Sodium Level 139 mmol/L (136-145)
== END | disposition home or self-care (01) ==
LOC: LAB 10:32
PROVIDERS: Referring Provider Nurse Practitioner Women's Health; Visit Provider Nurse Practitioner Women's Health
DX: I10 Essential (primary) hypertension (principal)
CPT/HCPCS: 36415; 80053; 82570; 84156; 85025

== ENCOUNTER → 2023-02-11 | Outpatient (CLI) | payer BC, SELFPAY ==
[2023-02-11 10:09] LABS: Protein, Urine (Random) 35.6 mg/dL (<11.9); Protein:Creat Ratio 127 mg/g CRE (0-200)
== END | disposition home or self-care (01) ==
LOC: LABSPEC 09:32
PROVIDERS: Referring Provider Registered Nurse; Visit Provider Registered Nurse
DX: I10 Essential (primary) hypertension (principal)
CPT/HCPCS: 82570; 84156

== ENCOUNTER → 2023-02-11 | Outpatient (CLI) | payer BC, SELFPAY ==
[2023-02-11 10:40] LABS: ALB/GLOB Ratio 0.6 RATIO (0.9-2.4); AST(SGOT) 16 U/L (15-37); Alanine Aminotransfer ALT/SGPT 10 U/L (13-56); Albumin, Serum 2.6 g/dL (3.2-5.0); Alkaline Phosphatase 94 U/L (45-117); Anion Gap 7 (5-15); BUN 6 mg/dL (7-18); BUN/Creat Ratio 7.5 RATIO (10-20); Calcium,Total 9.1 mg/dL (8.5-10.1); Chloride 107 mmol/L (98-107); EST Glomerular Filtration Rate 83 mL/min (>60); Est Glom Filt Rate - Afr Amer 100 mL/min (>60); Globulin 4.4 g/dL (2.2-4.2); Glucose 91 mg/dL (74-106); Potassium 3.8 mmol/L (3.5-5.1); Sodium Level 138 mmol/L (136-145)
[2023-02-11 10:55] LABS: Protein, Urine (Random) 21.6 mg/dL (<11.9); Protein:Creat Ratio 93 mg/g CRE (0-200)
[2023-02-11 11:13] LABS: Absolute Neutrophil Count 8.1 X10^3/uL (2.0-7.7); Basophil# 0.01 X10^3/uL; Basophil% 0.1 % (0-1); Eosinophil# 0.05 X10^3/uL; Eosinophils% 0.4 % (0-5); Hematocrit 35.4 % (37-47); Lymphocyte % 20.4 % (19-41); Mean Corp Hgb Conc 31.1 g/dL (32-36); Mean Corpuscular Hgb 28.9 pg (27.0-32.0); Mean Corpuscular Volume 93.2 fL (81-99); Mean Platelet Vol. 9.8 fl (6.2-12.0); Monocyte# 0.73 X10^3/uL; Monocyte% 6.5 % (0-10); NRBC Flagged by Analyzer 0 % (0-5); Neutrophil # 8.14 X10^3/uL (2.7-7.7); Platelet Count 312 K/mm3 (150-450); RBC Distribution Width CV 14.2 % (11.6-14.6); RBC Distribution Width SD 48.1 fl (35.1-43.9); White Blood Count 11.3 K/mm3 (4.4-11.0)
== END | disposition home or self-care (01) ==
LOC: LAB 09:32
PROVIDERS: Referring Provider Registered Nurse; Visit Provider Registered Nurse
DX: I10 Essential (primary) hypertension (principal)
CPT/HCPCS: 36415; 80053; 82570; 84156; 85025

== ENCOUNTER → 2023-02-16 | Outpatient (CLI) | payer BC, SELFPAY ==
[2023-02-16 12:30] LABS: Absolute Lymphocyte Count 2.13 X10^3/uL (0.83-4.51); Basophil# 0.01 X10^3/uL; Basophil% 0.1 % (0-1); Eosinophil# 0.06 X10^3/uL; Eosinophils% 0.5 % (0-5); Hematocrit 32.3 % (37-47); Hemoglobin 10.7 g/dL (12.0-15.0); Lymphocyte # 2.13 X10^3/ul (0.83-4.51); Lymphocyte % 19.4 % (19-41); Mean Corp Hgb Conc 33.1 g/dL (32-36); Mean Corpuscular Hgb 29.8 pg (27.0-32.0); Mean Platelet Vol. 9.8 fl (6.2-12.0); Monocyte# 0.76 X10^3/uL; Monocyte% 6.9 % (0-10); NRBC Flagged by Analyzer 0 % (0-5); Neutrophil % 72.7 % (47-70); Platelet Count 261 K/mm3 (150-450); RBC Distribution Width CV 14.2 % (11.6-14.6); RBC Distribution Width SD 46.2 fl (35.1-43.9); Red Blood Count 3.59 M/mm3 (4.2-5.4)
[2023-02-16 12:58] LABS: ALB/GLOB Ratio 0.6 RATIO (0.9-2.4); AST(SGOT) 12 U/L (15-37); Alanine Aminotransfer ALT/SGPT 13 U/L (13-56); Albumin, Serum 2.5 g/dL (3.2-5.0); Alkaline Phosphatase 93 U/L (45-117); Anion Gap 6 (5-15); BUN 7 mg/dL (7-18); Calcium,Total 9.1 mg/dL (8.5-10.1); Chloride 108 mmol/L (98-107); Creatinine, Serum 0.78 mg/dL (0.55-1.02); EST Glomerular Filtration Rate 85 mL/min (>60); Est Glom Filt Rate - Afr Amer 103 mL/min (>60); Globulin 4.1 g/dL (2.2-4.2); Glucose 91 mg/dL (74-106); Potassium 4.2 mmol/L (3.5-5.1); Protein, Total 6.6 g/dL (6.4-8.2); Sodium Level 137 mmol/L (136-145)
[2023-02-16 13:21] LABS: Protein, Urine (Random) 24.6 mg/dL (<11.9); Protein:Creat Ratio 77 mg/g CRE (0-200)
== END | disposition home or self-care (01) ==
LOC: LAB 12:05
PROVIDERS: Nurse Practitioner Women's Health; Referring Provider Obstetrics & Gynecology; Visit Provider Obstetrics & Gynecology
DX: O09.90 Supervision of high risk pregnancy, unspecified, unspecified trimester (principal); I10 Essential (primary) hypertension; Z3A.00 Weeks of gestation of pregnancy not specified
CPT/HCPCS: 36415; 80053; 82570; 84156; 85025

== ENCOUNTER → 2023-02-18 | Outpatient (CLI) | payer BC, SELFPAY ==
[2023-02-18 18:57] LABS: Protein, Urine (Random) 40.1 mg/dL (<11.9); Protein:Creat Ratio 109 mg/g CRE (0-200)
== END | disposition home or self-care (01) ==
LOC: LABSPEC 16:47
PROVIDERS: Referring Provider Advanced Practice Midwife; Visit Provider Advanced Practice Midwife
DX: O09.90 Supervision of high risk pregnancy, unspecified, unspecified trimester (principal); Z3A.00 Weeks of gestation of pregnancy not specified
CPT/HCPCS: 82570; 84156; 87081

== ENCOUNTER 2023-02-23 15:45 | Outpatient (CLI) | payer BC, SELFPAY ==
[2023-02-23 15:55] VITALS: BP 134/65; PULSE 92; TEMP 36.8
[2023-02-23] MEDS: Lactated Ringers 1,000 ML 999 ML IV (16:25)
[2023-02-23 16:43] LABS: Absolute Lymphocyte Count 2.54 X10^3/uL (0.83-4.51); Absolute Neutrophil Count 8.2 X10^3/uL (2.0-7.7); Basophil# 0.01 X10^3/uL; Basophil% 0.1 % (0-1); Eosinophil# 0.05 X10^3/uL; Eosinophils% 0.4 % (0-5); Hematocrit 32.7 % (37-47); Hemoglobin 10.6 g/dL (12.0-15.0); Lymphocyte # 2.54 X10^3/ul (0.83-4.51); Lymphocyte % 21.7 % (19-41); Mean Corp Hgb Conc 32.4 g/dL (32-36); Mean Corpuscular Hgb 29.1 pg (27.0-32.0); Mean Corpuscular Volume 89.8 fL (81-99); Monocyte# 0.84 X10^3/uL; Monocyte% 7.2 % (0-10); NRBC Flagged by Analyzer 0 % (0-5); Neutrophil # 8.19 X10^3/uL (2.7-7.7); Neutrophil % 70.2 % (47-70); Platelet Count 272 K/mm3 (150-450); RBC Distribution Width CV 14.3 % (11.6-14.6); RBC Distribution Width SD 46.5 fl (35.1-43.9); Red Blood Count 3.64 M/mm3 (4.2-5.4); White Blood Count 11.7 K/mm3 (4.4-11.0)
--- NOTE | 2023-02-23 16:43 | US_ITS ---
STUDY: OBSTETRICAL ULTRASOUND - BIOPHYSICAL PROFILE REASON FOR EXAM: Female, 42 years old WELL BEING LMP: PRIOR ULTRASOUND: 09/14/2022 TECHNIQUE: Transabdominal TECHNICAL QUALITY: Adequate. FINDINGS: There is a single intrauterine fetus. The fetus is in a cephalic presentation. There is demonstrated cardiac activity with a heart rate of 133 bpm. There is a normal amniotic fluid volume. The largest amniotic fluid pocket measures 6.8 cm. The amniotic fluid index (KEYSHA) is 14.5 cm. The placenta is posterior in location and is not low lying. There are Grade 1 placental changes. BIOPHYSICAL PROFILE: Breathing Movements (FBM): 2 Gross Body Movements (GBM): 2 Tone (FT): 2 Amniotic Fluid Volume (AFV): 2 TOTAL SCORE: 8 / 8 US/Biophysical Prof W/O Non Stres IMPRESSION: Normal biophysical profile of 8/8. Electronically Signed: Jm Moura MD at 19:02 EDT ,
[2023-02-23 17:00] VITALS: BMI 44.9
[2023-02-23 17:04] LABS: ALB/GLOB Ratio 0.6 RATIO (0.9-2.4); AST(SGOT) 12 U/L (15-37); Alanine Aminotransfer ALT/SGPT 12 U/L (13-56); Albumin, Serum 2.4 g/dL (3.2-5.0); Alkaline Phosphatase 98 U/L (45-117); Anion Gap 8 (5-15); BUN 8 mg/dL (7-18); BUN/Creat Ratio 11.2 RATIO (10-20); Calcium,Total 9.1 mg/dL (8.5-10.1); Chloride 109 mmol/L (98-107); Creatinine, Serum 0.71 mg/dL (0.55-1.02); EST Glomerular Filtration Rate 95 mL/min (>60); Est Glom Filt Rate - Afr Amer 115 mL/min (>60); Globulin 4.1 g/dL (2.2-4.2); Glucose 84 mg/dL (74-106); Potassium 3.8 mmol/L (3.5-5.1); Protein, Total 6.5 g/dL (6.4-8.2); Sodium Level 137 mmol/L (136-145)
[2023-02-23 17:47] LABS: Protein, Urine (Random) 37.7 mg/dL (<11.9); Protein:Creat Ratio 91 mg/g CRE (0-200)
--- NOTE | 2023-02-24 08:32 | OB.TRI.PN ---
Progress Notes Date of Service: 02/23/23 Progress Note: Patient presents for triage evaluation secondary to unsatisfactory NST in office. FHT: 135 Moderate variability reactive no decelerations category I tracing [place]: no Contractions Assessment and plan: Reactive NST, BPP 8/8, labs normal,reassuring maternal and status patient discharged to home to follow-up at next scheduled appointment. See problem list details for additional plan information.Plan reviewed with Dr Newell and she agrees with plan of care. Laboratory Studies: Laboratory Tests 02/23/23 02/23/23 Range/Units Unknown 16:25 WBC 11.7 H (4.4-11.0) K/mm3 RBC 3.64 L (4.2-5.4) M/mm3 Hgb 10.6 L (12.0-15.0) g/dL Hct 32.7 L (37-47) % MCV 89.8 (81-99) fL MCH 29.1 (27.0-32.0) pg MCHC 32.4 (32-36) g/dL RDW Std Deviation 46.5 H (35.1-43.9) fl RDW Coeff of Noe 14.3 (11.6-14.6) % Plt Count 272 (150-450) K/mm3 MPV 10.0 (6.2-12.0) fl Immature Gran % (Auto) 0.400 (0.0-0.9) % Neut % (Auto) 70.2 H (47-70) % Lymph % (Auto) 21.7 (19-41) % Colbert % (Auto) 7.2 (0-10) % Eos % (Auto) 0.4 (0-5) % Baso % (Auto) 0.1 (0-1) % Absolute Neuts (auto) 8.2 H (2.0-7.7) X10^3/uL Absolute Lymphs (auto) 2.54 (0.83-4.51) X10^3/uL Nucleated RBC % 0 (0-5) % Sodium 137 (136-145) mmol/L Potassium 3.8 (3.5-5.1) mmol/L Chloride 109 H (98-107) mmol/L Carbon Dioxide 20.0 L (21.0-32.0) mmol/L Anion Gap 8 (5-15) BUN 8 (7-18) mg/dL Creatinine 0.71 (0.55-1.02) mg/dL Est GFR (MDRD) Af Amer 115 (>60) mL/min Est GFR (MDRD) Non-Af 95 (>60) mL/min BUN/Creatinine Ratio 11.2 (10-20) RATIO Glucose 84 (74-106) mg/dL Calcium 9.1 (8.5-10.1) mg/dL Total Bilirubin 0.30 (0.20-1.00) mg/dL AST 12 L (15-37) U/L ALT 12 L (13-56) U/L Alkaline Phosphatase 98 (45-117) U/L Total Protein 6.5 (6.4-8.2) g/dL Albumin 2.4 L (3.2-5.0) g/dL Globulin 4.1 (2.2-4.2) g/dL Albumin/Globulin Ratio 0.6 L (0.9-2.4) RATIO U Random Total Protein 37.7 H (<11.9) mg/dL Urine Creatinine 413.00 (NO RANGE EST.) mg/dL Protein/Creatinin Ratio 91 (0-200) mg/g CRE Charges/Coding Multi Select Codes Urinary/Genital Urinary/Genital CPT Codes: 44156-03 non-stress test Interp Assessment & Plan (1) Chronic hypertension: COMMENT: labetalol started on 08/17/22 echo not able to be done at [facility] d/t maternal habitus, referred to heart center. s/p holter monitor plan for 24 week us materal echo needed. baseline pih labs early in weekly PIH labs (2) History of delivery: COMMENT: x3, plan RLTCS. Scheduled for 03/01 @ 7:10 with JV (3) Obesity affecting : QUALIFIERS: Trimester: third trimester COMMENT: NST starting at 32-34 weeks BMI >40 growth q4 for BMI and AMA. AC 93% and overall at 79% @ 31 weeks 1 TM GCT encouraged healthy weight gain (4) Supervision of high-risk : QUALIFIERS: Trimester: third trimester Qualified Code(s): O09.93 - Supervision of high risk , unspecified, third trimester COMMENT: , RAULITO 03/16/23,girl, [facility], [place](14 week demise) Benny (5) Advanced maternal age (AMA) in : COMMENT: donor embryo (6) : QUALIFIERS: Weeks of gestation: 37 weeks Qualified Code(s): Z3A.37 - 37 weeks gestation of COMMENT: GBS neg, anatomy nl, NIPT low risk, discussed carrier testing
== END 2023-02-23 18:29 | disposition home or self-care (01) ==
LOC: WPOUT 15:51 → WP 15:51
PROVIDERS: Referring Provider Advanced Practice Midwife; Visit Provider Advanced Practice Midwife
DX: O16.3 Unspecified maternal hypertension, third trimester (principal); O99.213 Obesity complicating pregnancy, third trimester; O09.523 Supervision of elderly multigravida, third trimester; O34.219 Maternal care for unspecified type scar from previous cesarean delivery; Z3A.37 37 weeks gestation of pregnancy
CPT/HCPCS: 96360; 36415; 59025; 59050; 76819; 80053; 82570; 84156; 85025; 99221; J7120; G0378

== ENCOUNTER 2023-03-01 05:00 | Inpatient (IN) | payer BC, SELFPAY ==
[2023-03-01] VITALS (15 sets, daily range): BP systolic 95–138; BP diastolic 45–70; PULSE 70–90; RESP 16–18; TEMP 35.8–36.7; O2SAT 95–98; BMI 43.8
[2023-03-01] MEDS: Lactated Ringers 1,000 ML 999 ML IV (05:20)
[2023-03-01 05:37] LABS: Absolute Lymphocyte Count 2.56 X10^3/uL (0.83-4.51); Absolute Neutrophil Count 5.9 X10^3/uL (2.0-7.7); Basophil# 0.01 X10^3/uL; Basophil% 0.1 % (0-1); Eosinophil# 0.06 X10^3/uL; Eosinophils% 0.7 % (0-5); Hematocrit 30.9 % (37-47); Lymphocyte # 2.56 X10^3/ul (0.83-4.51); Lymphocyte % 27.9 % (19-41); Mean Corp Hgb Conc 32.4 g/dL (32-36); Mean Corpuscular Hgb 29.2 pg (27.0-32.0); Mean Corpuscular Volume 90.4 fL (81-99); Mean Platelet Vol. 10.1 fl (6.2-12.0); Monocyte% 6.5 % (0-10); NRBC Flagged by Analyzer 0 % (0-5); Neutrophil # 5.93 X10^3/uL (2.7-7.7); Neutrophil % 64.5 % (47-70); Platelet Count 249 K/mm3 (150-450); RBC Distribution Width CV 14.2 % (11.6-14.6); RBC Distribution Width SD 46.7 fl (35.1-43.9); Red Blood Count 3.42 M/mm3 (4.2-5.4); White Blood Count 9.2 K/mm3 (4.4-11.0)
[2023-03-01] MEDS: Acetaminophen 500 MG Tablet 1000 MG PO ×3 (05:48→17:29)
[2023-03-01] MEDS: Lactated Ringers 1,000 ML 150 ML IV (06:23)
--- NOTE | 2023-03-01 07:01 | HP.PCM.OB_ITS ---
HPI - General General Date of Admission: 03/01/23 HPI Narrative PRISCILA CARPENTER, is a 42 y/o @ 38 weeks 2 days who presents to L&D for a repeat section. Her was a product of IVF. She is being treated for chronic hypertension, on labetalol. Maternal Data Information RAULITO Calculator Estimated Delivery Date Method Current WG Current Estimate 03/13/23 Conception 38w 2d Other Estimates 03/16/23 LMP (Certain) 37w 6d 03/10/23 Ultrasound #1 38w 5d 03/06/23 Ultrasound #2 39w 2d [facility] Medical History Asthma BiPAP (biphasic positive airway pressure) dependence Cancer Cancer Chiari malformation Diverticula of intestine Fallopian tube disorder Fatigue Fatty liver Former smoker Gastric reflux Genital herpes affecting Gestational HTN History of diverticulitis History of echocardiogram History of hiatal hernia History of in vitro fertilization History of steroid therapy HPV (human papilloma virus) infection Hx of endometriosis Irregular esophago-gastric mucosal junction Loss of hearing macrosomia depression Prolonged rupture of membranes, delivered Retroverted uterus Shortness of breath on exertion Sleep apnea Sleep apnea SOB (shortness of breath) Stomach ulcer Home Medications albuterol 90 mcg/actuation aerosol inhaler 90 mcg inhalation PRN PRN ASTHMA 01/05/22 [History Last Taken Unknown] multivitamin with minerals-folic acid 200 mcg chewable tablet (Adult Multivitamin Gummies) 1 tab PO DAILY 07/13/22 [History Last Taken 02/28/23] naltrexone 50 mg tablet 4.5 mg PO HS fertility 07/13/22 [History Last Taken 02/27/23] enoxaparin 40 mg/0.4 mL subcutaneous syringe (Lovenox) 40 mg (0.4 mL) subcut DAILY fertility #12 mL 08/06/22 [Rx Last Taken 02/27/23] acyclovir 400 mg tablet 400 mg PO DAILY hsv #90 tabs 10/13/22 [Rx Last Taken Unknown] labetalol 200 mg tablet 200 mg PO BID GHTN #60 tabs 10/27/22 [Rx Last Taken 02/28/23] ferrous gluconate 225 mg (27 mg iron) tablet 225 mg PO BID anemia #60 tabs 10/28/22 [Rx Last Taken 02/28/23] breast pump (Easy Feed Electric Breast Pump) #1 ea 12/15/22 [Rx Last Taken Unknown] Allergy/AdvReac Type Severity Reaction Status Date / Time erythromycin base Allergy Mild Rash Verified 02/25/23 10:12 cephalexin [From Keflex] Allergy Hives Verified 02/25/23 10:12 tree nut Allergy Anaphylaxis Verified 02/25/23 10:12 venom-honey bee Allergy Anaphylaxis Verified 02/25/23 10:12 meperidine HCl [From Demerol] AdvReac Unknown Verified 02/25/23 10:12 Family History Father Sleep apnea Mother Cancer skin cancer Grandmother Cancer uterine Breast cancer, Onset Age: 60 Maternal Aunt Breast cancer, Onset Age: 60 Maternal Surgical History Encounter for tubal ligation H/O bilateral salpingectomy H/O dilation and curettage H/O laparoscopy H/O vein stripping History of D&C History of esophagogastroduodenoscopy (EGD) History of myringotomy Hx of section Hx of colonoscopy Hx of tonsillectomy Hx of umbilical hernia repair Status post dilation of esophageal narrowing Tubal reversal surgical follow up Social History adopted: No household members: spouse and children housing: house number of children: 3 current occupational status: employed current occupation: [employer] current occupational exposures/hazards: No pets and animals: Yes pets and animals: dog(s) history of recent travel: Yes ([place]) out of state: Yes out of country: No sexually active: Yes Smoking Status: Former smoker Tobacco: How many years used: 13 second hand exposure: Yes alcohol intake: former details: pre rare substance use type: does not use well-balanced diet: about half the time caffeine: No eating out: 1-3 times/week during the past year weight has: remained stable what type of physical activity do you participate in: none xavier/voodoo: Other seatbelt use: always do you feel safe at home: Yes additional social history: [employer] 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 Date Name GA/Weeks Outcome Route Bth Weight Infant Gen Labor Lgth Anesthesia Del Locatn Provider FOB Unknown Lidia 2005 39 live - full term Female spinal [facility] Unknown Lisa 2006 39 live - full term Female spinal [facility] Unknown Joseph 2001 39 live - full term Female spinal [facility] Unknown 2019 Verity 14 spontaneous Delivery Date: Last Updated by: Seda Argueta MD nuchal cord single, PreE, for chorioamnionitis Delivery Date: Last Updated by: Meg Pedraza c/s double nuchal cord, short cord Delivery Date: Last Updated by: eMg Pedraza fever, emergency c/s Visit Details Expected Delivery Route/Plan RLTCS Plans Covid status: discussed Flu vaccine: discussed Tdap vaccine:completed Rhogam: [] LARC form signed: complete Problem list reviewed and updated with the most current plan of care details and appropriate orders placed. Relevant counseling for the gestational age provided. Continue routine care and follow up unless otherwise noted in visit notes/problem list details OB Flowsheet Initial Weight: 309 lb Date -?-?-?-?-?-?-?-?-?-?-?-?- EGA Weight BP Urine Prot -?-?-?-?-?-?-?-?-?-?-?-?- Glucose FHR FuHt Pres Dilation -?-?-?-?-?-?-?-?-?-?-?-?- Effaced St Visit Note 08/06/22 -?-?-?-?-?-?-?-?-?-?-?-?- 8w 5d 309 lb 2 oz (+2 oz) 140/74 -?-?-?-?-?-?-?-?-?-?-?-?- 189 -?-?-?-?-?-?-?-?-?-?-?-?- JV- single live IUP consistent with 9 weeks 1 day, also consistent with LMP. lovenox prophylactic dose daily does not appear to be correct dose. new dose sent to home pharmacy. 08/17/22 -?-?-?-?-?-?-?-?-?-?-?-?- 10w 2d 311 lb 4 oz (+2 lb 4 oz) 144/84 Negative -?-?-?-?-?-?-?-?-?-?-?-?- Negative 163 -?-?-?-?-?-?-?-?-?-?-?-?- JV- bp still janay vated on 2 occasions now. CRL is measuring a week ahead, however will not change due date based on day 5 blastocyst transfer. return in 2 weeks for heart tones and bp check. starting labetalol 09/01/22 -?-?-?-?-?-?-?-?-?-?-?-?- 12w 3d 311 lb (+2 lb) 129/82 Negative -?-?-?-?-?-?-?-?-?-?-?-?- Negative 134 -?-?-?-?-?-?-?-?-?-?-?-?- JV- bedside scan to see heart tones. needs to increase labetalol to 200 bid 09/29/22 -?-?-?-?-?-?-?-?-?-?-?-?- 16w 3d 309 lb 6 oz (+6 oz) 133/83 Negative -?-?-?-?-?-?-?-?-?-?-?-?- Negative 160 -?-?-?-?-?-?-?-?-?-?-?-?- JV- pt is still taking all her prior meds and needs to add 81 mg asa for chtn. passed her 3 hr gtt. 10/27/22 -?-?-?-?-?-?-?-?-?-?-?-?- 20w 3d 310 lb 2 oz (+1 lb 2 oz) 143/83 134/83 1+ -?-?-?-?-?-?-?-?-?-?-?-?- Negative 145 -?-?-?-?-?-?-?-?-?-?-?-?- JV- no lof, vagi nal bleeidng and + FM. initial bp was elevated and has 2+ protein. ordering pih labs to compare to baseline and rto in 2 weeks to monitor closely. sees mfm in 2 weeks for rpt us due to dec views. 11/10/22 -?-?-?-?-?-?-?-?-?-?-?-?- 22w 3d 311 lb (+2 lb) 121/75 Negative -?-?-?-?-?-?-?-?-?-?-?-?- Negative 145 -?-?-?-?-?-?-?-?-?-?-?-?- JV- no complaint s today. She has a follow up ultrasound on 11/22 . plan for 3 hr gtt at 28 weeks. 12/08/22 -?-?-?-?-?-?-?-?-?-?-?-?- 26w 3d 312 lb (+3 lb) 133/79 Trace -?-?-?-?-?-?-?-?-?--?-?-?- Negative 150 27 -?-?-?-?-?-?-?-?-?-?-?-?- LC- no complaint s. echo scheduled.no vb/ctx/lof. good fm. 12/24/22 -?-?-?-?-?-?-?-?-?-?-?-?- 28w 5d 309 lb 4 oz (+4 oz) 134/73 Trace -?-?-?-?-?-?-?-?-?-?-?-?- Negative 153 -?-?-?-?-?-?-?-?-?-?-?-?- JV- normal echo. Plan for monthly growth scans, twice weekly testing. passed her 3 hr again 01/05/23 -?-?-?-?-?-?-?-?-?-?-?-?- 30w 3d 307 lb 2 oz (-1 lb 14 oz) 135/81 Trace -?-?-?-?-?-?-?-?-?-?-?-?- Negative 140 31 -?-?-?-?-?-?-?-?-?-?-?-?- LC-no lof/ctx/vb . good fm. normal growth. scheduling 2x NST. LC-no lof/ctx/vb. good fm. n ormal growth. scheduling 2x NST. larc signed, has tubal. tdap today. 01/19/23 -?-?-?-?-?-?-?-?-?-?-?-?- 32w 3d 307 lb (-2 lb) 120/72 Trace -?-?-?-?-?-?-?-?-?-?-?-?- Negative 140 -?-?-?-?-?-?-?-?-?-?-?-?- LC- no lof/vb/ct x. good fm. having lightheadness after labetolol, only taking at night. obtaining BP cuff. LC- no lof/vb/ctx. good fm. having lightheadness after labetolol, only taking at night. obtaining BP cuff. will monitor bid for the next 2 days and will dose adjust on tuesday if needed. call if BP is less than 100/60 or greater than 140/90 01/21/23 -?-?-?-?-?-?-?-?-?-?-?-?- 32w 5d 304 lb 6 oz (-4 lb 10 oz) 121/76 151/77 121/76 Trace -?-?-?-?-?-?-?-?-?-?-?-?- Negative 145 -?-?-?-?-?-?-?-?-?-?-?-?- LC- NST only. re active. BP at home 130s/80s. 01/26/23 -?-?-?-?-?-?-?-?-?-?-?-?- 33w 3d 306 lb 8 oz (-2 lb 8 oz) 118/70 Trace -?-?-?-?-?-?-?-?-?-?-?-?- Negative 150 -?-?-?-?-?-?-?-?-?-?-?-?- LC- NST only. re active. BP stable. 01/28/23 -?-?-?-?-?-?-?-?-?-?-?-?- 33w 5d 305 lb 8 oz (-3 lb 8 oz) 148/80 121/80 Trace -?-?-?-?-?-?-?-?-?-?-?-?- Negative 140 33 -?-?-?-?-?-?-?-?-?-?-?-?- LC- NST reactive . on 100mg of labetolol. repeat bp in office stable. sent for outpatient PI labs per J today. 02/02/23 -?-?-?-?-?-?-?-?-?-?-?-?- 34w 3d 308 lb 8 oz (-8 oz) 134/82 Negative -?-?-?-?-?--?-?-?-?-?-?-?- Negative 150 -?-?-?-?-?-?-?-?-?-?-?-?- MH-reactive NST. No VB,LOF. PI labs today. 02/09/23 -?-?-?-?-?-?-?-?-?-?-?-?- 35w 3d 305 lb 8 oz (-3 lb 8 oz) 137/69 Negative -?-?-?-?-?-?-?-?-?-?-?-?- Negative 140 -?-?-?-?-?-?-?-?-?-?-?-?- JV- nst reactive , bp stable and no protein in urine. ok to hold off on labs today. return tuesday. 02/11/23 -?-?-?-?-?-?-?-?-?-?-?-?- 35w 5d 305 lb 2 oz (-3 lb 14 oz) 132/85 1+ -?-?-?-?-?-?-?-?-?-?-?-?- Negative 150 -?-?-?-?-?-?-?-?-?-?-?-?- LC- reactive nst . 1+ proteinuria. P:C sent. PEC labs completed today. 02/16/23 -?-?-?-?-?-?-?-?-?-?-?-?- 36w 3d 304 lb 4 oz (-4 lb 12 oz) 122/79 Trace -?-?-?-?-?-?-?-?-?-?-?-?- Negative 150 -?-?-?-?-?-?-?-?-?-?-?-?- MH-NST only reac tive. Denies headache, vision changes. 02/18/23 -?-?-?-?-?-?-?-?-?-?-?-?- 36w 5d 303 lb 8 oz (-5 lb 8 oz) 146/80 132/77 1+ -?-?-?-?-?-?-?-?-?-?-?-?- Negative 150 0 -?-?-?-?-?-?-?-?-?-?-?-?- Kw- + FM. no vb/ lof/ctx. Urine sent today. growth 7/6 71% per pt. [facility] labs 02/16-nl. NST nl Kw- + FM. no vb/lof/ctx. Uri ne sent today. growth 7/6 71% per pt. [facility] labs 02/16- nl. NST reactive. GBS today 02/23/23 -?-?-?-?-?-?-?-?-?-?-?-?- 37w 3d 305 lb (-4 lb) 111/71 1+ -?-?-?-?-?-?-?-?-?-?-?-?- Negative 150 -?-?-?-?-?-?-?-?-?-?-?-?- KW- Variables to day on NST. Sent to for extended monitoring and labs. C/S scheduled for 03/0102/25/23 -?-?-?-?-?-?-?-?-?-?-?-?- 37w 5d 306 lb 8 oz (-2 lb 8 oz) 128/82 1+ -?-?-?-?-?-?-?-?-?-?-?-?- Negative 150 -?-?-?-?-?-?-?-?-?-?-?-?- KW-NST reactive. surgical consent done today. ROS Constitutional Constitutional: Denies change in weight, fatigue, fever(s), headache(s), poor appetite or weakness Eyes Eyes: Denies blurry vision, change in vision, seeing flashes or spots in vision ENT HEENT: Denies dizziness, headache(s), loss taste/smell or sore throat Cardiovascular Cardiovascular: Denies chest pain, dizziness, dyspnea, irregular heart rhythm, leg edema, palpitations, rapid heart rate or vomiting Respiratory/Chest Respiratory/Chest: Denies chest tightness, cough, dyspnea or breast pain Gastrointestinal Gastrointestinal: Denies abdominal pain, anorexia, constipation, cramping, diarrhea, hemorrhoids, vomiting or weight changes Genitourinary Genitourinary: Denies dysuria, flank pain, genital lesions, genital pain, urinary frequency or urinary urgency Musculoskeletal Musculoskeletal: Denies back pain, difficulty walking, joint pain, limited range of motion, muscle cramps or numbness Integumentary Integumentary: Denies lesions or unusual bruising Neurologic Neurologic: Denies abnormal movements, abnormal speech, dizziness, numbness, seizure-like activity or syncope Psychiatric Psychiatric: Denies anxiety, behavioral changes, change in appetite, change in libido, cognitive impairment, confusion, depression, difficulty concentrating, hallucinations or suicidal thoughts Endocrine Endocrinology: Denies excessive sweating, polydipsia or polyuria Hematologic/Lymphatic Hematologic/Lymphatic: Denies easy bleeding, easy bruising or lymphadenopathy Allergic/Immunologic Allergic/Immunologic: Denies itchy eyes, lip swelling, seasonal rhinorrhea, rhinitis, throat swelling, tongue swelling, eczemia, wheezing or asthma Vital Signs Vital Signs Vital Signs: 03/01/23 05:30 Temperature 97.6 F L Temperature Source Temporal Pulse Rate 89 Respiratory Rate 16 Blood Pressure 125/63 H Blood Pressure Mean 83 Blood Pressure Source Monitor Blood Pressure Position Semi-Fowlers Blood Pressure Location Right Arm Pulse Ox 96 Oxygen Delivery Method Room Air Weight Weight: 306 lb 7.08 oz Body Mass Index (BMI) 43.8 Physical Exam Const alert, oriented x3, no apparent distress and healthy appearing General Appearance: cooperative; Negative for anxious HEENT normocephalic Face and Sinus: normal facial exam Eyes EOMs intact bilaterally and no scleral icterus General Eye: normal appearance of both eyes Neck full ROM and supple Lymph Lymphatic: no lymphadenopathy noted Chest Chest: abnormal inspection of the chest Resp normal respiratory effort Effort and Inspection: able to speak in complete sentences Cardio regular rate GI soft to palpation and non-tender Inspection: gravid Palpation: soft; Negative for tender Back/Spine no CVA tenderness Extremity normal to inspection, full ROM and no clubbing, cyanosis or edema General Extremity: Negative for calf tenderness or edema Skin Lesions: no lesions Rashes: no rashes Psych mental status grossly normal Labs Labs Labs: Blood Type O POSITIVE Antibody Screen NEGATIVE Hct 30.9 % (37-47) L Hgb 10.0 g/dL (12.0-15.0) L Obstetrics US Syphilis Total Ab Non-reactive Rubella IgG Antibody Reactive (Nonreactive) Hep Bs Antigen Non-Reactive (Nonreactive) Chlamydia DNA (EDMUND) Negative (Negative) Neisseria gonorrhoeae DNA (EDMUND) Negative (Negative) HIV 1&2 Antibody Non-Reactive (Nonreactive) Glucose 1 Hr 50 gm 139 mg/dL (70-140) Assessment & Plan (1) History of in vitro fertilization: COMMENT: donor egg. Recommended echo between weeks 22-24 secondary to IVF and U/S q 4 weeks (2) Abnormal glucose: COMMENT: 3 HR GTT, 2/8 nl GTT, nl gtt 12/22/22 (3) Chronic hypertension: COMMENT: labetalol started on 08/17/22 echo not able to be done at [facility] d/t maternal habitus, referred to heart center. s/p holter monitor plan for 24 week us materal echo needed. baseline pih labs early in weekly PIH labs (4) Encounter for monitoring naltrexone therapy: COMMENT: on for anti-rejection of transfer and will need to be on it until 36 weeks. (5) Subchorionic hematoma: COMMENT: 2 mm x 3mm, fu 2 weeks (6) Obesity affecting : QUALIFIERS: Trimester: third trimester COMMENT: NST starting at 32-34 weeks BMI >40 growth q4 for BMI and AMA. AC 93% and overall at 79% @ 31 weeks 1 TM GCT encouraged healthy weight gain (7) History of delivery: COMMENT: x3, plan RLTCS. Scheduled for 03/01 @ 7:10 with JV (8) Advanced maternal age (AMA) in : COMMENT: donor embryo (9) Supervision of high-risk : QUALIFIERS: Trimester: third trimester Qualified Code(s): O09.93 - Supervision of high risk , unspecified, third trimester COMMENT: , RAULITO 03/16/23,girl, PC lidia Ruiz Alaina, Verity(14 week demise) Benny (10) : QUALIFIERS: Weeks of gestation: 37 weeks Qualified Code(s): Z3A.37 - 37 weeks gestation of COMMENT: GBS neg, anatomy nl, NIPT low risk, discussed carrier testing (11) ZULAY (obstructive sleep apnea): COMMENT: sees pulmonary (12) History of loss: COMMENT: 03/2020 hydrops 14 weeks (13) Asthma: COMMENT: sees pulmonology, albuterol PRN PLAN: Plan plan for repeat ERAS section pt's BMI is 43.9 currently and has a h/o sleep apnea, will not be a candidate for Duramorph
--- NOTE | 2023-03-01 07:06 | DCINST_ITS ---
Discharge Instructions Diet Discharge Diet: No restrictions Activity Discharge Activity: May Not Drive (for 2 weeks or while taking narcotic pain medications.), May Shower and May Take a Tub Bath (in 7 days.) May resume sexual activity in: 4-6 weeks Weight Bearing Status: Full weight bearing Lifting Restrictions: 20 pounds Dressing / Incision Call your doctor if your incision/area has: Continuous Slow Oozing, Sudden Increased Bleeding, Increased Pain/ Swelling, Increased Redness and Foul Smelling Discharge Call your doctor if you observe: Fever of 101 or Higher and Using more than 1 pad per hour Suture Line Care: Avoid Pulling/Pushing and Avoid Pinching/Bending Cleanse incision/area with: Soap & Water and Keep Dressing Clean & Dry Follow Up Care Please Follow Up With: Lauren Ferrari DO When: Call [phone] to make an appointment for an incision check in 1-2 weeks. Test Results: Test results from this visit will be discussed in further detail at your follow- up appointment, if applicable. Discharge Plan Admission Admit Date/Time: 03/01/23 05:00 Attending Provider: Lauren Ferrari Primary Care Provider: Care Physician,Coral Primary Discharge Orders/Prescriptions Prescriptions: No Action Adult Multivitamin Gummies 200 mcg tablet,chewable 1 tab PO DAILY naltrexone 50 mg tablet 4.5 mg PO HS enoxaparin [Lovenox] 40 mg/0.4 mL syringe 40 mg subcut DAILY Qty: 12 4RF labetalol 200 mg tablet 200 mg PO BID Qty: 60 12RF albuterol 90 mcg/actuation Aerosol 90 mcg INHALATION PRN PRN (Reason: ASTHMA) acyclovir 400 mg tablet 400 mg PO DAILY Qty: 90 3RF ferrous gluconate 225 mg (27 mg iron) tablet 225 mg PO BID Qty: 60 3RF (DME) breast pump [Easy Feed Electric Breast Pump] Device See Rx Instructions .Route Qty: 1 0RF Rx Instructions: As directed Referrals / Follow Up: Care Physician,No Primary [Primary Care Provider] -
[2023-03-01] MEDS: Sodium Citrate/Citric Acid 30 ML UDC PO (07:11)
[2023-03-01] MEDS: Clindamycin 900 MG/50 ML BAG 75 MG IV (07:45)
--- NOTE | 2023-03-01 07:45 | TISS_PTH ---
PATIENT: PRISCILA CARPENTER LOC: [facility] U#:[id number] AGE/SX: 42/F ROOM: WP006 RE03/01/[address]: Dr. 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 PARVEZ:shin 03/02/2023 MICROSCOPIC DESCRIPTION Slides are reviewed. GROSS DESCRIPTION Received is one container labeled with the patient's name and not further designated. The specimen consists of a piece of barragan, nodular tissue weighing 6.6 gm and measuring 2.5 x 2.5 x 1.6 cm. Sections of this mass reveal barragan whorled cut surfaces without areas of hemorrhage, necrosis or cystic degeneration. Egg Processor sections are submitted in two cassettes. / SJ:rg 03/01/2023 TC:1 CPT: 94866
[2023-03-01] MEDS: Carboprost Tromethamine 250 MCG/ML Ampul IM (07:52)
--- NOTE | 2023-03-01 08:14 | EX.PCM.OBRPT ---
Assessment & Plan (1) History of in vitro fertilization: COMMENT: donor egg. Recommended echo between weeks 22-24 secondary to IVF and U/S q 4 weeks (2) Abnormal glucose: COMMENT: 3 HR GTT, 09/22 nl GTT, nl gtt 12/22/22 (3) Chronic hypertension: COMMENT: labetalol started on 08/17/22 echo not able to be done at [facility] d/t maternal habitus, referred to heart center. s/p holter monitor plan for 24 week us materal echo needed. baseline pih labs early in weekly PIH labs (4) Encounter for monitoring naltrexone therapy: COMMENT: on for anti-rejection of transfer and will need to be on it until 36 weeks. (5) Subchorionic hematoma: COMMENT: 2 mm x 3mm, fu 2 weeks (6) Obesity affecting : QUALIFIERS: Trimester: third trimester COMMENT: NST starting at 32-34 weeks BMI >40 growth q4 for BMI and AMA. AC 93% and overall at 79% @ 31 weeks 1 TM GCT encouraged healthy weight gain (7) History of delivery: COMMENT: x3, plan RLTCS. Scheduled for 03/01 @ 7:10 with JV (8) Advanced maternal age (AMA) in : COMMENT: donor embryo (9) Supervision of high-risk : QUALIFIERS: Trimester: third trimester Qualified Code(s): O09.93 - Supervision of high risk , unspecified, third trimester COMMENT: , RAULITO 03/16/23,girl, PC Joseph, gi, Lisa, Verity(14 week demise) Benny (10) : QUALIFIERS: Weeks of gestation: 37 weeks Qualified Code(s): Z3A.37 - 37 weeks gestation of COMMENT: GBS neg, anatomy nl, NIPT low risk, discussed carrier testing (11) ZULAY (obstructive sleep apnea): COMMENT: sees pulmonary (12) History of loss: COMMENT: 03/2020 hydrops 14 weeks (13) Asthma: COMMENT: sees pulmonology, albuterol PRN Maternal Data Information RAULITO Calculator Estimated Delivery Date Method Current WG Current Estimate 03/13/23 Conception 38w 2d Other Estimates 03/16/23 LMP (Certain) 37w 6d 03/10/23 Ultrasound #1 38w 5d 07/23/23 Ultrasound #2 39w 2d Details Operative Information Date of Procedure: 03/01/23 Pre-Operative Diagnosis: 42 y/o, chronic htn, IVF , advanced maternal age, 3 prior sections, 38 weeks 2 days for repeat section Post-Operative Diagnosis: 42 y/o, chronic htn, IVF , advanced maternal age, 3 prior sections, 38 weeks 2 days for repeat section, fibroid uterus Classification: Scheduled Procedure Type: low transverse process line operator #1: Kaylee Hoffman process line operator #2: Autumn Mckeon Type of Anesthesia: Spinal Anesthesiologist: Shant Hernandez Antibiotic Given: Clindamycin 600mg IV x1 and Gentamicin 1.5mg/kg IV x1 Estimated Blood Loss: 500cc Findings Description of Procedure: The patient is a 42 y/o @ 38 weeks 2days, presented for repeat . Spinal anesthesia was placed without difficulty. Peterson catheter was placed. The patient was placed in the dorsal supine position with leftward tilt. Patient was prepped and draped in the normal sterile fashion. Pfannenstiel skin incision was made with the scalpel and carried through to the underlying layer of fascia with the scalpel. Fascia was nicked in the midline and the incision extended laterally. The rectus bellies were dissected off superiorly and inferiorly with out complication both sharply and bluntly. The peritoneum was entered digitally. The incision was stretched and a low transverse uterine incision was made with the scalpel. The 's head was delivered atraumatically followed by the anterior and posterior shoulders without complication the rest of the infant delivered. The cord was clamped and cut and the was handed off to awaiting nurse. The placenta was delivered manually immediately following and was noted to be intact and have a three-vessel cord. The uterus was exteriorized cleared of all clots and debris. A 3 cm fibroid was noted at the incision line and was removed with metzembaum scissors and passed off for pathology analysis. The incision was closed in a double layer closure using #1 Vicryl and #1 Monocryl. The ovaries and fallopian tubes were noted to be within normal limits. The uterus was returned to the maternal abdomen and gutters were cleared of all clots and debris. The peritoneum was closed with 3-0 Monocryl in a running fashion. Gloves were changed prior to fascial closure. Fascia was closed with 0 PDS in a running fashion. Subcutaneous tissue was copiously irrigated and the skin was closed with 3-0 Monocryl in a subcuticular fashion. Mepilex dressing was applied without complication. Patient was taken to recovery in stable condition. It was discussed with the patient that based on the clinical information obtained during this encounter, combined with her history, at this time I would recommend for future deliveries if further pregnancies are desired. Presentation: Positive for Vertex Amniotic Membrane Rupture Type: Artificial Amniotic Fluid Description: Clear Placental Delivery Description: Manual Removal Placenta Disposition: [facility] Specimen(s) Sent to Pathology: uterine fibroid Cord Vessel Description: 3 Vessels Cord Entanglement: Around neck x 1, loose Nuchal Cord Compression: Without compression A Gender: Female (1 minute): 9 (5 minute): 9 Delayed Cord Clamping: Yes Complications Risks of Surgery Discussed w/Patient: Bleeding, Anesthesia Risks, Infection, Need for Future C-Sections and Injury to surrounding structure(s) including bowel and bladder Multi Select Codes Urinary/Genital Urinary/Genital CPT Codes: 87384 Delivery [facility]
[2023-03-01] MEDS: Oxytocin 15 Units/NS 250ml 15 UNITS/250 ML IV.SOLN 83 UNITS IV (08:45)
[2023-03-01 08:53] LABS: Syphilis Antibodies Non-reactive
[2023-03-01 09:12] LABS: Pathology Specimen OB SEE PATHOLOGY REPORT
[2023-03-01] MEDS: Ketorolac 30 MG/ML Syringe IV ×3 (09:20→21:30)
[2023-03-01] MEDS: Ferrous Gluconate 324 MG Tablet PO ×2 (11:41→22:16)
[2023-03-01] MEDS: Senna/Docusate Sodium 1 Tablet PO (11:41)
[2023-03-01] MEDS: Lactated Ringers 1,000 ML 100 ML IV (11:41)
[2023-03-01] MEDS: Labetalol 200 MG Tablet PO (11:42)
[2023-03-01] MEDS: 0.9% Saline Lock 10 ML Syringe IV (17:02)
[2023-03-01] MEDS: Enoxaparin 40 MG/0.4 ML Syringe SC (20:02)
[2023-03-02] MEDS: Acetaminophen 500 MG Tablet 1000 MG PO ×3 (00:06→12:50)
[2023-03-02] MEDS: Ketorolac 30 MG/ML Syringe IV (03:14)
[2023-03-02] MEDS: 0.9% Saline Lock 10 ML Syringe IV (03:15)
[2023-03-02 03:23] VITALS: BP 118/54; PULSE 78; RESP 15; TEMP 36.6; O2SAT 96
[2023-03-02 04:47] LABS: Hematocrit 28.7 % (37-47); Hemoglobin 9.1 g/dL (12.0-15.0); Mean Corp Hgb Conc 31.7 g/dL (32-36); Mean Corpuscular Hgb 29.1 pg (27.0-32.0); Mean Corpuscular Volume 91.7 fL (81-99); Mean Platelet Vol. 9.8 fl (6.2-12.0); Platelet Count 222 K/mm3 (150-450); RBC Distribution Width CV 14.4 % (11.6-14.6); RBC Distribution Width SD 47.8 fl (35.1-43.9); Red Blood Count 3.13 M/mm3 (4.2-5.4); White Blood Count 10.1 K/mm3 (4.4-11.0)
--- NOTE | 2023-03-02 07:39 | PCM.PN.OB ---
Subjective Subjective Patient is laying in bed comfortably without complaints. She states that she slept on an off during the night. Lochia is mild and pain is minimal. She had a baby girl Pamella at7:40 via section. She states that she is not in a hurry to go home but wants to decide later tonight. Objective Data Objective Data Vital Signs: Vital Signs Temp Pulse Resp BP Pulse Ox O2 Del Method 97.8 F 78 15 118/54 L 96 Room Air 03/02/23 03:23 03/02/23 03:23 03/02/23 03:23 03/02/23 03:23 03/02/23 03:23 03/02/23 03:23 Oxygen Delivery Method Room Air Weight: 306 lb 7.08 oz Body Mass Index (BMI) 43.8 Intake & Output: Intake and Output for Last 24 Hours 02/28/23 03/01/23 03/02/23 23:59 23:59 23:59 Intake Total 2826.5 / 2826.5 Output Total 790 / 790 400 / 400 Balance 2036.5 / 2036.5 -400 / -400 Lab / Micro Data 03/02/23 04:40 Labs: Laboratory Results - last 24 hr 03/01/23 05:20: Syphilis Total Ab Non-reactive 03/02/23 04:40: WBC 10.1, RBC 3.13 L, Hgb 9.1 L, Hct 28.7 L, MCV 91.7, MCH 29.1, MCHC 31.7 L, RDW Std Deviation 47.8 H, RDW Coeff of Noe 14.4, Plt Count 222, MPV 9.8 ROS Constitutional Constitutional: Reports systems reviewed and no addt'l complaints, except as documented Cardiovascular Cardiovascular: Denies chest pain, dizziness, dyspnea or irregular heart rhythm Respiratory/Chest Respiratory/Chest: Denies cough, pain on inspiration or shortness of breath at rest Gastrointestinal Gastrointestinal: Denies abdominal pain, nausea or vomiting Genitourinary Genitourinary: Denies burning urination Musculoskeletal Musculoskeletal: Denies muscle cramps, muscle spasms or muscle weakness Neurologic Neurologic: Denies confusion, dizziness, headache(s) or lack of coordination Psychiatric Psychiatric: Denies anxiety, behavioral changes or depression Physical Exam HEENT normocephalic Resp normal respiratory effort and normal air movement GI soft to palpation, non-tender and non-distended Rectal Exam: other Other Details: Incision is clean, dry, and intact no CVA tenderness Extremity normal to inspection General Extremity: edema bilateral (trace ) Assessment & Plan (1) Status post delivery: PLAN: s/p LTCS PPD # 1 1. routine post care 2. breast feeding- support given 3. rh positive 4. rubella immune 5. bp stable. continue labetalol 6. plan for dc home either later tonight or tomorrow am. (2) Breast feeding status of mother: (3) History of in vitro fertilization: COMMENT: donor egg. Recommended echo between weeks 22-24 secondary to IVF and U/S q 4 weeks (4) Chronic hypertension: COMMENT: labetalol started on 08/17/22 echo not able to be done at [facility] d/t maternal habitus, referred to heart center. s/p holter monitor plan for 24 week us materal echo needed. baseline pih labs early in weekly PIH labs (5) History of delivery: COMMENT: x3, plan RLTCS. Scheduled for 03/01 @ 7:10 with JV (6) ZULAY (obstructive sleep apnea): COMMENT: sees pulmonary (7) Asthma: COMMENT: sees pulmonology, albuterol PRN
[2023-03-02] MEDS: Naproxen 500 MG Tablet PO ×2 (08:54→17:11)
[2023-03-02 09:16] VITALS: BP 135/62; PULSE 73; RESP 16; TEMP 36.4; O2SAT 96
[2023-03-02 10:03] VITALS: BP 148/73; PULSE 73
[2023-03-02] MEDS: Ferrous Gluconate 324 MG Tablet PO (10:06)
[2023-03-02] MEDS: Labetalol 200 MG Tablet PO (10:07)
[2023-03-02] MEDS: Senna/Docusate Sodium 1 Tablet PO (10:07)
[2023-03-02] MEDS: Multivitamins,Ther W-Minerals Tablet 1 TABLET PO (10:07)
[2023-03-02 14:56] VITALS: BP 149/67; PULSE 80; RESP 16; TEMP 36.4; O2SAT 98
--- NOTE | 2023-03-02 15:41 | CASEMGMT ---
Social Work Labor and Delivery Unit Sw received social work consult due to history of PPD. Sw met with parents at bedside and completed assessment, provided support and resources. No ongoing concerns from social work perspective. Ok for mom and baby to be discharged when medically ready. Psychosocial assessment note to be entered at later date. Nnamdi Cornelius, STOCK LETTERER, PHLEBOTOMY DIRECTOR
--- NOTE | 2023-03-03 10:00 | CASEMGMT ---
Social Work Assessment Labor and Delivery Unit Patient Address:[address] [place] [address] [place] [address] Phone number: [phone] Date of Referral: 03/01/23 Time of Referral:? 1109 Referred By: Dr. Lauren Ferrari Date of Intervention: ??03/03/23 Time of Intervention:? 1130 Reason for Referral:? mental health, history of depression Sw completed chart review and acknowledges social work consult entered due to maternal history positive for depression. Sw presented to bedside, introduced self to mother of baby (MOB- Jing) and father of baby (FOB- Benny). Sw explained reason for sw involvement. Sw completed psychsocial? assessment with parents. When appropraite sw asked FOB to step out so that MOB could complete Brooks Depression Scale.FOB left room respectfully and willingly.? History obtained from: medical records, MOB and FOB. Household composition:Currently residing in the family home are parents, and two of MOB older daughters ( Baltazar, 16 years old and Lidia, 18 years old). No one else residing with family at this time. Parents report that their home is safe and adequate. Patient's parent/guardian status:? ?MOB reporst that parents met at a house green party with mutual friends and started dating, they have been together for 9 years now. Parents are .d This is first baby for FOB. When meeting with MOB privately she reports that there are no concerns with domestic violence or intimate partner violence. Medical History: This is MOB's fifth . MOB had three children from a former relationship (21 years old, 18 years old and 16 years old). When MOB had her last daughter she had a tubal done. When MOB met FOB (who is 14 years MOB latricia) they got and decided to have children. In 2019 MOB had a tubal reversal done and then got . MOB states that she lost that baby at 17 weeks gestation. MOB states that she and FOB decided to use egg donor due to maternal advanced age. They received fertility services through [facility] in [place]. MOB states that they chose an egg donor and started the process. MOB states that they have one more embryo. MOB states that at this time noone in her family is aware that they used an egg donor. MOB states that her oldest daughter is struggling to understand MOB and FOB's relationship and has chosen to estrange herself from the family. GEETA states that she hopes that eventually she will come around. - GEETA delivered baby via . Baby was born on 03/01/23 weighing ?(mom?s history ? how many pregnancies, deliveries, care, any pertinent medical issues)??? (baby?s history birthweight, apgars, and any pertinent medical issues which is usually nothing) Educational Status:?ROLDAN is a high school graduate, GEETA has a college degree. Parents deny issues with learning or comprehension. Financial Status: Both parents are gainfully employed outside of the home. ROLDAN works as at [employer]- where he does installs for new [employer]. GEETA works as a caddymaster for a [employer] in [place]. GEETA is able to take off 12 weeks of work and will need to return mid May. Infant Supplies:?Parents report they have obtained everything they need for baby including: car seat, safe sleep space, clothes, diapers and wipes. GEETA states that she and does have a pump at home. Childcare/Caregiver(s):? GEETA states that when both parents are working she will need baby to go to a daycare, or will have grandparents provide care for baby Transportation: Both parents have drivers license and reliable transportation. No barriers to transportation at this time. Programs/Agencies Involved: ??No linkage to community resources at this time. ? Children Services/Legal Issues:?No prior involvement with Children Services. No issues or concerns warranting referrals at this time. ?? Behavioral Health Issues: ??Mental Health History:??ROLDAN denies mental health history. GEETA states that as a child she was diagnosed with manic depression and trichotillomania. GEETA also has history of depression following the of her oldest daughter. Katharine discussed signs and symptoms of baby blues and post depression and anxiety. GEETA completed Brooks Depression Scale, her score was a 1. Sw provided education and ongoing support. ? Substance Use History: GEETA denies substance use prior to or during . ?? Family History:?GEETA states that she is not aware of any family history of mental health or substance use. ? Drug Screens: Last urine screen completed in August of 2022, negative for all substances. Family/Social Stressors:? GEETA states that her stressors at this time revolve around the fact that they did not tell anyone that baby girl is a result of an egg donor and IVF. MOB states that they only person they told was her mom (maternal grandma) who was supportive. MOB states that she is nervous to tell her other daughters. MOB states that her oldest daughter is already unsupportive of her relationship with FOB. MOB states that she hopes that her daughter will come around, and she is not in a hamilton to push this. MOB states that he will know when the timing is right to tell the rest of her family as well as baby girl. Support Systems: MOB states that her biggest supports are grandparents (maternal and paternal) Depression/Shaken Baby/Safe Sleeping:?Sw discussed signs and symptoms of baby blues and depression/ anxiety. Sw provided literature and education for MOB to review. MOB expressed understanding. MOB states that FOB is a big support for her, but sometimes does not know how to help her with mental health. Sw encouraged MOB to have a conversation with FOB to discuss this concern and inform him how he can help her when she is struggling. MOB expressed understanding. Sw educated MOB on shaken baby prevention and ABCs of safe sleep. MOB expressed understanding. ASSESSMENT:?MOB and FOB at hospital due to delivery of baby girl, John Day. Parents both observed to tend to baby appropriately and lovingly. MOB aware of her mental health history and concern for susceptibility of experiencing depression/ anxiety as a result of her mental health history and current situation. MOB was talkative and receptive to sw involvement and support. MOB was provided list of community resources for MOB to utilize if necessary. PLAN:? MOB and baby to be discharged when medically ready ?No other services requested or indicated. Nnamdi Cornelius, ENGAGEMENT DIRECTOR, AUTOMOTIVE POWER ELECTRONICS ENGINEER
== END 2023-03-02 18:05 | disposition home or self-care (01) | DRG 787 ==
PROVIDERS: Admitting Provider Obstetrics & Gynecology; Referring Provider Obstetrics & Gynecology; Visit Provider Obstetrics & Gynecology
PROC: 10D00Z1 Extraction of Products of Conception, Low, Open Approach (ICD-10-PCS; CPT 59514; principal; 2023-03-01 07:15)
DX: O10.02 Pre-existing essential hypertension complicating childbirth (principal); O99.354 Diseases of the nervous system complicating childbirth; G47.33 Obstructive sleep apnea (adult) (pediatric); J45.909 Unspecified asthma, uncomplicated; Z79.01 Long term (current) use of anticoagulants; O99.52 Diseases of the respiratory system complicating childbirth; O99.814 Abnormal glucose complicating childbirth; Z80.8 Family history of malignant neoplasm of other organs or systems; O69.2XX0 Labor and delivery complicated by other cord entanglement, with compression, not applicable or unspecified; Z37.0 Single live birth; D25.9 Leiomyoma of uterus, unspecified; Z80.3 Family history of malignant neoplasm of breast; Z87.891 Personal history of nicotine dependence; O34.219 Maternal care for unspecified type scar from previous cesarean delivery; Z3A.38 38 weeks gestation of pregnancy
CPT/HCPCS: 59050; 85025; 85027; 86780; 86850; 86900; 86901; 88305; 99221; J7120; A4216; G0378; J2405

== ENCOUNTER → 2023-04-12 | Outpatient (CLI) | payer BC, SELFPAY ==
[2023-04-19 09:08] LABS: HPV APTIMA, High Risk Negative (Negative)
== END | disposition home or self-care (01) ==
LOC: LABSPEC 13:39
PROVIDERS: Referring Provider Advanced Practice Midwife; Visit Provider Advanced Practice Midwife
DX: Z12.4 Encounter for screening for malignant neoplasm of cervix (principal)
CPT/HCPCS: 87624; 88175; G0145

== ENCOUNTER → 2023-04-29 | Outpatient (CLI) | payer BC, SELFPAY ==
--- NOTE | 2023-04-29 10:54 | US_ITS ---
STUDY: ULTRASOUND OF THE FEMALE PELVIS - COMPLETE REASON FOR EXAM: Female, 42 years old. Vaginal bleeding 8 weeks PP LMP: Unknown. TECHNIQUE: Transvaginal TECHNICAL QUALITY: Adequate. COMPARISON: None. FINDINGS: The uterus is anteverted and is in a midline position. The uterus measures 8.9 cm x 6.5 cm x 4.1 cm. There is a Nabothian cyst of the cervix. The endometrium measures 5.2 mm in thickness, and is heterogeneous (striated). This is 1.1 cm x 0.9 cm x 0.6 cm hyperechoic nodule in the superior aspect of the endometrium. Trace amount of fluid is seen in the endocervical canal. There is no demonstrated myometrial mass. I.U.D. - The patient does not have an I.U.D. The right ovary is visualized. The right ovary measures 2.1 cm x 1.2 cm x 1.4 cm. There is no right ovarian cyst or ovarian mass. There is no visualized right adnexal mass or complex lesion. There is normal arterial and normal venous vascularity. The left ovary is visualized. The left ovary measures 2.4 cm x 1.5 cm x 1.6 cm. There is no left ovarian cyst or ovarian mass. There is no visualized left adnexal mass or complex lesion. There is normal arterial and normal venous vascularity. There is no fluid in the cul-de-sac. US/Transvaginal Non- IMPRESSION: Thickened endometrium. Small amount of fluid in the endometrial canal with an echogenic nodule in the superior aspect of the endometrium. This may represent retained products of conception. Electronically Signed: Alphonso Mcgovern MD at 15:18 EDT ,
== END | disposition home or self-care (01) ==
LOC: OPUS 10:50
PROVIDERS: Referring Provider Advanced Practice Midwife; Visit Provider Advanced Practice Midwife
DX: Z39.2 Encounter for routine postpartum follow-up (principal); Z98.891 History of uterine scar from previous surgery
CPT/HCPCS: 76830

== ENCOUNTER → 2023-05-03 | Outpatient (CLI) | payer BC, SELFPAY ==
[2023-05-03 15:06] LABS: Absolute Lymphocyte Count 2.82 X10^3/uL (0.83-4.51); Absolute Neutrophil Count 4.1 X10^3/uL (2.0-7.7); Basophil# 0.02 X10^3/uL; Basophil% 0.3 % (0-1); Eosinophils% 1.3 % (0-5); Hematocrit 36.9 % (37-47); Hemoglobin 11.6 g/dL (12.0-15.0); Lymphocyte # 2.82 X10^3/ul (0.83-4.51); Lymphocyte % 36.4 % (19-41); Mean Corp Hgb Conc 31.4 g/dL (32-36); Mean Corpuscular Hgb 28.2 pg (27.0-32.0); Mean Corpuscular Volume 89.6 fL (81-99); Mean Platelet Vol. 9.9 fl (6.2-12.0); Monocyte# 0.66 X10^3/uL; Monocyte% 8.5 % (0-10); NRBC Flagged by Analyzer 0 % (0-5); Neutrophil # 4.12 X10^3/uL (2.7-7.7); Neutrophil % 53.2 % (47-70); Platelet Count 282 K/mm3 (150-450); RBC Distribution Width SD 42.5 fl (35.1-43.9); Red Blood Count 4.12 M/mm3 (4.2-5.4); White Blood Count 7.7 K/mm3 (4.4-11.0)
[2023-05-03 15:54] LABS: hCG Titer Quant., Serum < 1 mIU/mL (1-3)
== END | disposition home or self-care (01) ==
LOC: LAB 14:40
PROVIDERS: Referring Provider Obstetrics & Gynecology; Visit Provider Obstetrics & Gynecology
DX: N93.9 Abnormal uterine and vaginal bleeding, unspecified (principal)
CPT/HCPCS: 36415; 84702; 85025

== ENCOUNTER → 2023-08-11 | Outpatient (CLI) | payer BC, SELFPAY ==
--- OUTSIDE RECORDS SUMMARY | 2023-08-11 12:41 | XMS RPT_ITS | CCD ---
Author Name Unknown Address [address] [place] [address] Organization [facility] Care Team Providers Care Blow Down Helper Name Role Phone Unavailable Primary Care Provider FITZ Reynaga Primary Care Unavailable HEENA KRAUSE Attending HEENA Jung Admitting KARI Sinclair Attending KARI Stone Referring Unavailab FITZ Cadet [facility] Unavailable KARI BOSWELL Referring Unavailab IVANIA Hamlin Attending Unavailable FITZ CASILLAS [facility] Unavailable HENRY MASCORRO Attending Unavailable IVANIA BANEGAS Referring Unavailable FITZ CASILLAS [facility] Unavailable KARI BOSWELL Referring Unavailab ALLYSSA Sun Attending Unavailable FITZ CASILLAS [facility] Unavailable KARI BOSWELL Referring Unavailab IVANIA Hamlin Attending Unavailable FITZ CASILLAS [facility] Unavailable KARI BOSWELL Referring Unavailab IVANIA Hamlin Attending Unavailable ALTAGRACIA [facility] Unavailable Allergies Allergy Classification Reported Allergen(s) Allergy Type Date of Onset Reaction(s) Facility (1 source) bee venom Propensity to adverse reactions to drug 9 Anaphylaxis [place], [place] (2 sources) Cephalexin; Translations: [CEPHALEXIN] Drug Allergy 0 Other (See Comments) [place] (2 sources) Erythromycin; Translations: [ERYTHROMYCIN] Drug Allergy 6 Other (See Comments) [place] (1 source) macadamia nut allergenic extract Drug Allergy 7 Shortness Of Breath [place] (2 sources) Meperidine; Translations: [MEPERIDINE] Drug Allergy 7 Nausea And Vomiting, Other (See Comments) [place] (2 sources) Penicillins; Translations: [PENICILLINS] Propensity to adverse reactions to drug 6 Other (See Comments) [place] (1 source) Meperidine Drug Allergy [facility] (1 source) tree nut, unspecified Drug allergy (disorder) [facility] (1 source) tree nut, unspecified; Translations: [TREE NUT ALLERGY] Propensity to adverse reactions to drug (disorder) 7 [facility] Repository Medications Current Medications Medication Drug Class(es) Dates Sig (Normalized) Sig (Original) acyclovir 200 mg oral capsule (1 source) Herpesvirus Nucleoside Analog DNA Polymerase Inhibitor, Herpes Simplex Virus Nucleoside Analog DNA Polymerase Inhibitor, Herpes Zoster Virus Nucleoside Analog DNA Polymerase Inhibitor take 1 capsule by mouth every four hours acyclovir (ZOVIRAX) 200 MG capsule Take by mouth every 4 hours (while awake) 0 Active ALPRAZolam 0.25 mg disintegrating oral tablet (1 source) Benzodiazepine Start: 03-27-2020 ALPRAZolam (NIRAVAM) dissolvable tablet 0.25 mg calcium chloride 0.0014 meq/ml / potassium chloride 0.004 meq/ml / sodium chloride 0.103 meq/ml / sodium lactate 0.028 meq/ml injectable solution (1 source) Start: 03-27-2020 lactated ringers infusion 1 ml diphenhydrAMINE hydrochloride 50 mg/ml cartridge (1 source) Histamine-1 Receptor Antagonist Start: 03-27-2020 End: 03-27-2020 diphenhydrAMINE (BENADRYL) injection 12.5 mg 2 ml fentaNYL 0.05 mg/ml injection (2 sources) Opioid Agonist Start: 03-27-2020 fentaNYL (SUBLIMAZE) injection 25 mcg Completed/Discontinued Medications Medication Drug Class(es) Dates Sig (Normalized) Sig (Original) acetaminophen 500 mg oral tablet (1 source) Start: 03-27-2020 End: 03-27-2020 acetaminophen (TYLENOL) tablet 1,000 mg Problems Problem Classification Problem Date Documented Da te Episodic/Chronic Contraceptive and procreative management (2 sources) Encounter for fertility testing; Translations: [ENCOUNTER FOR FERTILITY TESTING] Onset: 09-08-2020 Episodic Other complications of (1 source) Missed miscarriage; Translations: [Missed ] 03-26-2020 Episodic Results Test Name Value Interpretation Reference Range Facil ity Vital Signs Date Time Vital Sign Value Performing Clinician Arnel reddy 03-27-2020 12:15-0400 Body Temperature 98.01 [degF] [place] 03-27-2020 12:15-0400 BP Diastolic 63 mm[Hg] [place] 03-27-2020 12:15-0400 BP Systolic 129 mm[Hg] [place] 03-27-2020 12:15-0400 Pulse (Heart Rate) 75 /min [place] 03-27-2020 12:15-0400 Pulse Oximetry 99 % [place] 03-27-2020 12:15-0400 Respiratory Rate 16 /min [place] 03-27-2020 07:34-0400 BMI (Body Mass Index) 43.05 kg/m2 [place] 03-27-2020 07:34-0400 Body weight 136.08 kg [place] 03-27-2020 07:34-0400 Height 177.8 cm [place] Encounters Encounter Date Encounter Type Care Provider Facility Start: 02-17-2023 End: 02-17-2023 ambulatory KARI BOSWELL [facility] Start: 01-13-2023 End: 01-13-2023 ambulatory KARI BOSWELL [facility] Start: 12-21-2022 End: 12-21-2022 ambulatory [facility] Start: 12-16-2022 End: [facility]: 11-16-2022 End: 11-16-2022 ambulatory [facility] Start: 10-25-2022 End: 10-25-2022 ambulatory [facility] Start: 09-04-2020 End: 09-04-2020 Patient encounter procedure FITZ SILVA [facility] Start: 03-27-2020 End: 03-27-2020 Subsequent hospital visit by physician Gustavo Higgins Work Phone: [facility] General [facility] Procedures Date Procedure Procedure Detail Performing Clinician Start: 03-27-2020 Blood count complete automated Gustavo Higgins Work Phone: Start: 03-27-2020 Blood typing serolog ic abo Gustavo Higgins Work Phone: Plan of Treatment Date Care Activity Detail Author Start: 04-15-2020 Influenza vaccination Flu vaccine (# 1) [place] Start: 2019 Diabetes screen Diabetes screen [place] Start: 2019 Lipid panel Lipid screen [place], [place] Start: 2000 Screening for malign ant neoplasm of cervix Cervical cancer screen [place] Start: 1998 DTaP/Tdap/Td vaccine (1 - Tdap) DTaP/Tdap/Td vaccine (1 - Tdap) [place] Start: 1994 HIV screening HIV screen [place], [place] Start: 1980 Varicella vaccine (1 of 2 - 2-dose childhood series) Varicella vaccine (1 of 2 - 2-dose childhood series) [place] End: 03-27-2020 Blood glucose - POCT Blood glucose - POCT Point of Care Testing STAT One Time for 1 Occurrences starting 03/27/2020 until 03/27/2020 [place] Payers Date Payer Category Payer Unknown [id number] 1979 Unknown [id number] 2.16. [id number] 1979 Unknown [id number] 2.16. [id number] 1979 Unknown [id number] 2.16. [id number] 1979 Unknown [id number] 2.16. [id number] 1979 Unknown [id number] 2.16. [id number] 1979 Unknown [id number] 2.16. [id number] 1959 Private Health Insurance [id number] 1960 Unknown [id number] Unknown [id number] Unknown [id number] Social History Date Type Detail Facility Start: 03-27-2020 Tobacco smoking [facility] Former smoker [place] Start: 03-27-2020 Tobacco use and exposure Never used [place] Start: 03-27-2020 Alcohol intake Lifetime non-d jayce (finding) [place] Start: 03-26-2020 History SDOH Alcohol Frequency 1 [place] Sex Assigned At Not on file [place] Exposure to SARS-CoV -2 (event) Not sure [place] Clinical Note 12-21-2022 Note Date & Type Note Facility 12-21-2022 Note Priscila Carpenter i s a new patient who's primary care provider is Fitz Casillas MD here for evaluation of heart. Chief Complaint Patient presents with ECHO echo History of Presenting Problem HPI Thank you for consulting us regarding Priscila Carpenter. She is referred to the cardiology clinic at [facility] for evaluation of the heart. I saw this patient in the echocardiogram clinic on 12/21/2022. Patient was referred to the echocardiographic clinic for a echocardiogram since this was a IVF and limited heart views on OB ultrasound. Cardiac ROS Review of Systems See the full note Past Medical History Past Medical History: Diagnosis Date Alopecia Anemia Diverticula of intestine Fatty liver GERD (gastroesophageal reflux disease) Irregular esophago-gastric mucosal junction Obesity Sleep apnea Uncomplicated asthma Vaginal Pap smear, abnormal Past Surgical History: Procedure Laterality Date SECTION OTHER SURGICAL HISTORY TUBAL REVERSAL TUBAL LIGATION filshie clips TYMPANOSTOMY TUBE PLACEMENT Medications: Outpatient Encounter Medications as of 12/21/2022 Medication Sig Dispense Refill Enoxaparin Sodium (LOVENOX) SQ Inject into the skin labetalol (NORMODYNE) 200 MG tablet Take by mouth 2 times daily aspirin EC (ECOTRIN LOW STRENGTH) 81 MG EC tablet Take by mouth daily acyclovir (ZOVIRAX) 200 MG capsule Take 1 Capsule (200 mg) by mouth daily Vit-Fe Fumarate-FA ( VITAMIN PO) Take by mouth daily folic acid (FOLVITE) 400 MCG TABS tablet Take 2 Tablets (800 mcg) by mouth daily No facility-administered encounter medications on file as of 12/21/2022. Allergies: Allergies Allergen Reactions Tree Nut Allergy Anaphylaxis and Shortness Of Breath Cephalexin Other (See Comments) Facial flushing Erythromycin Other (See Comments) Meperidine Other (See Comments) and Nausea And Vomiting Penicillins Other (See Comments) Family Medical History: Family History Problem Relation Age of Onset High Blood Pressure Father Ovarian Cancer Maternal Grandmother Social History: Social History Socioeconomic History Marital status: Spouse name: None Number of children: None Years of education: None Highest education level: None Tobacco Use Smoking status: Former Types: Cigarettes Quit date: 2017 Years since quittin.3 Smokeless tobacco: Never Substance and Sexual Activity Alcohol use: Never Drug use: Never Physical Exam: Vitals: 12/21/22 1307 BP: 137/74 Growth %ile SmartLinks can only be used for patients less than 20 years old. Weight - Scale: (!) 141.1 kg Facility age limit for growth %martha is 20 years. Height: 175.3 cm Facility age limit for growth %martha is 19 years. Physical Exam Patient is here for the echocardiogram. Physical exam was deferred. Studies: echocardiogram: Position; Breech. 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 Atrioventricular and ventriculoarterial concordance seen. Atria: Normal left and right atrial size. There was a large patent foramen ovale with [id number] shunt. Tricuspid valve: There was normal tricuspid valve. There was normal Doppler across the tricuspid valve. Mitral valve: Normal mitral valve. There was normal Doppler across the mitral valve. Right ventricle: There was normal size and systolic function. Left ventricle: There was normal size and systolic function. Aortic valve: Normal aortic valve. There was normal Doppler across the aortic valve seen. Pulmonary valve: Normal pulmonary valve. There was normal Doppler across the pulmonary valve seen. Ventricular septum: There was no obvious ventricular septal defect seen. Main pulmonary artery: Normal main pulmonary artery. Pulmonary arteries: Good size branch pulmonary arteries. Pulmonary veins: There were at least 2/4 pulmonary veins seen entering into the left atrium. Systemic venous return: There was normal systemic venous return seen. Aortic arch: Aortic arch was patent. Ductal arch: Patent Ductal arch. 3-vessel view: Could not be obtained. Ductus venosus: There was normal flow pattern seen in the ductus venosus. Umbilical artery and umbilical vein. There was normal pulse Doppler in umbilical artery and umbilical vein. Rhythm: There was sinus rhythm. There was no arrhythmia noted. Trace pericardial effusion was noted. Impression and recommendations. 1)Technically difficult study due to limited acoustic windows, movements, position and maternal body habitus. 2) Limited views, grossly normal echocardiogram. 3) I have discussed the limitations of echocardiographic examination, that is likely to miss small ventricular septal defects as well as mild semilunar valve stenosis. Patent foramen ova (more content not included)... [facility] Discharge Instructions * Attachments The following attachments cannot be sent through Care Everywhere. * Hysteroscopy - Dilation and Curettage: Post-op (Bengali) documented in this encounter History of Present Illness * Yamile Tripp RN - 03/27/2020 12:10 PM EDT Discharge information given to the patient. Patient and family verbalized understanding of information. All questions were answered before discharge. Patient ambulated, denies dizziness or nausea. Tolerating PO fluids and crackers. Vital signs are stable. Patient has changed and is being discharged home in a wheelchair with valuables. IV discontinued, catheter intact, site benign. Manual pressure held. 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 Higgins Car Shunter: Dr Prather Findings: Products of coneption Specimen: Products of Conception Peterson: 30 ml EBL: 1500 ml including amniotic fluid approx 300 ml Fluids: 1000 ml LR Anesthesia: General See previous triage note for laminaria placement. The patient was brought back to the operating room, placed in dorsal lithotomy position, prepped and draped in the normal sterile fashion. A time out was performed. A weighted speculum was placed into the vagina. A right angle retractor was placed anteriorly to allow visualization of the cervix. The laminaria could be easily visualized in the cervical os which were removed without difficulty intact. The moist gauze previously placed in triage with the laminaria was also removed from the vagina. The anterior lip of the cerv (more content not included)... Additional Source Comments INFORMATION SOURCE (unrecogn ized section and content) DATE CREATED AUTHOR AUTHOR'S ORGANIZ ATION 09/09/2020 [facility] DATE CREATED AUTHOR AUTHOR'S ORGANIZ ATION 02/17/2023 [facility] FOR RECORDS PERTAINING TO PATIENTS WHO ARE OR HAVE BEEN ENROLLED IN A CHEMICAL DEPENDENCY/SUBSTANCEABUSE PROGRAM, SOME INFORMATION MAY BE OMITTED. This clinical summary was aggregated from multiple sources. Caution should be exercised in using it in the provision of clinical care. This summary normalizes information from multiple sources, and as a consequence, information in this document may materially change the coding, format and clinical context of patient data. In addition, data may be omitted in some cases. CLINICAL DECISIONS SHOULD BE BASED ON THE PRIMARY CLINICAL RECORDS. [employer] provides no warranty or guarantee of the accuracy or completeness of information in this document.
[2023-08-11 15:30] LABS: Absolute Lymphocyte Count 2.93 X10^3/uL (0.83-4.51); Absolute Neutrophil Count 4.5 X10^3/uL (2.0-7.7); Basophil# 0.02 X10^3/uL; Basophil% 0.2 % (0-1); Eosinophil# 0.08 X10^3/uL; Hematocrit 40.7 % (37-47); Hemoglobin 12.8 g/dL (12.0-15.0); Lymphocyte # 2.93 X10^3/ul (0.83-4.51); Lymphocyte % 35.8 % (19-41); Mean Corp Hgb Conc 31.4 g/dL (32-36); Mean Corpuscular Hgb 27.4 pg (27.0-32.0); Monocyte# 0.62 X10^3/uL; Monocyte% 7.6 % (0-10); NRBC Flagged by Analyzer 0 % (0-5); Neutrophil # 4.52 X10^3/uL (2.7-7.7); Neutrophil % 55.2 % (47-70); Platelet Count 311 K/mm3 (150-450); RBC Distribution Width CV 12.9 % (11.6-14.6); RBC Distribution Width SD 40.4 fl (35.1-43.9); Red Blood Count 4.68 M/mm3 (4.2-5.4); White Blood Count 8.2 K/mm3 (4.4-11.0)
[2023-08-11 15:55] LABS: AST(SGOT) 17 U/L (15-37); Alanine Aminotransfer ALT/SGPT 19 U/L (13-56); Albumin, Serum 3.7 g/dL (3.2-5.0); Alkaline Phosphatase 123 U/L (45-117); Anion Gap 9 (5-15); BUN 14 mg/dL (7-18); Calcium,Total 9.4 mg/dL (8.5-10.1); Chloride 108 mmol/L (98-107); Creatinine, Serum 0.93 mg/dL (0.55-1.02); EST Glomerular Filtration Rate 69 mL/min (>60); Est Glom Filt Rate - Afr Amer 84 mL/min (>60); Globulin 3.7 g/dL (2.2-4.2); Glucose 91 mg/dL (74-106); Potassium 3.9 mmol/L (3.5-5.1); Protein, Total 7.4 g/dL (6.4-8.2); Rheumatoid Factor < 10.0 IU/mL (<15); Sodium Level 141 mmol/L (136-145)
[2023-08-11 18:14] LABS: Erythrocyte Sedimentation Rate 25 mm/hr (0-30)
[2023-08-16 12:07] LABS: ANTINUCLEAR ANTIBODIES DIRECT Negative (Negative)
== END | disposition home or self-care (01) ==
LOC: MFPLAB 12:24
PROVIDERS: Visit Provider Family Medicine
DX: M25.50 Pain in unspecified joint (principal)
CPT/HCPCS: 36415; 80053; 85025; 85652; 86038; 86431

== ENCOUNTER → 2024-07-17 | Outpatient (CLI) | payer OTHER, SELFPAY ==
--- NOTE | 2024-07-17 07:39 | BI_ITS ---
MAMMOGRAPHY - BILATERAL SCREENING REASON FOR EXAM: Female, 43 years old. Routine annual screening examination. PERTINENT HISTORY: Grandmother with breast cancer. Aunt with breast cancer. TECHNIQUE: Digital bilateral breast elvira (3D mammographic acquisition) in the CC and MLO projections. 2-D mediolateral oblique (MLO) and craniocaudad (CC) views of both breasts were obtained. CAD: Full Field Digital Mammography with Computer Added Detection was performed. COMPARISON: Comparison is made with prior study October 30, 2021 and October 29, 2020. FINDINGS: Breast Composition: The breasts are heterogeneously dense, which may obscure small masses. There are no dominant masses or suspicious calcifications. No other significant abnormalities are identified. There has been no significant change since the prior study. BI/SCRN MAMM (CAD)W/ELVIRA BILAT IMPRESSION: Stable bilateral screening mammogram. Yearly follow-up mammogram recommended. (A) ASSESSMENT CATEGORY: BIRADS Category 1: Negative. A letter regarding these results will be sent to the patient by the facility within 30 days. Approximately 10% of breast cancers are not detected by mammography. A normal mammogram should not delay biopsy of a clinically suspicious abnormality. [id number] Electronically Signed: Alphonso Mcgovern MD at 8:33 EST ,
== END | disposition home or self-care (01) ==
LOC: OPBI 07:39
PROVIDERS: PCP Family Medicine; Referring Provider Obstetrics & Gynecology; Visit Provider Obstetrics & Gynecology
DX: Z12.31 Encounter for screening mammogram for malignant neoplasm of breast (principal); Z80.3 Family history of malignant neoplasm of breast
CPT/HCPCS: 77063; 77067

== ENCOUNTER → 2024-09-13 | Outpatient (CLI) | payer OTHER, SELFPAY ==
--- NOTE | 2024-09-13 08:33 | US_ITS ---
PROCEDURE: PELVIC W/ TRANSVAGINAL REASON FOR EXAM: Abnormal uterine bleeding. Prior resection of a fibroid. LMP: August 26, 2024. TECHNIQUE: Transabdominal and transvaginal pelvic ultrasound COMPARISON: None. FINDINGS: Measurements: Uterus: 9.5 cm x 6.6 cm x 4.6 cm. Endometrial Thickness: 9 mm. The endometrium is hyperechoic. Nabothian cyst. Right Ovary: 4.4 cm x 2.7 cm x 2.3 cm. There is a right simple ovarian cyst measuring 2.7 cm x 2.1 cm x 1.9 cm. Left Ovary: 1.7 cm x 1.3 cm x 1.5 cm. TRANSVAGINAL: Uterus: Anteverted. Normal contour and myometrial echotexture. Endometrium: Normal echotexture. Right ovary: Normal size and echotexture. 2.7 cm x 2.1 cm x 1.9 cm simple cyst. Left ovary: Normal size and echotexture. Other adnexal findings: None. Cul-de-sac: No free intraperitoneal fluid identified. No tenderness. US/Pelvic w/ Transvaginal IMPRESSION: 2.7 cm x 2.1 cm x 1.9 cm right ovarian cyst. Reading Location: [facility]
[2024-09-13 09:57] LABS: Absolute Neutrophil Count 5.7 X10^3/uL (2.0-7.7); Basophil# 0.03 X10^3/uL; Basophil% 0.3 % (0-1); Eosinophil# 0.08 X10^3/uL; Eosinophils% 0.8 % (0-5); Hematocrit 37.6 % (37-47); Hemoglobin 12.1 g/dL (12.0-15.0); Lymphocyte % 30.7 % (19-41); Mean Corp Hgb Conc 32.2 g/dL (32-36); Mean Corpuscular Hgb 27.6 pg (27.0-32.0); Mean Corpuscular Volume 85.8 fL (81-99); Monocyte# 0.72 X10^3/uL; Monocyte% 7.6 % (0-10); NRBC Flagged by Analyzer 0 % (0-5); Neutrophil # 5.68 X10^3/uL (2.7-7.7); Neutrophil % 60.2 % (47-70); Platelet Count 260 K/mm3 (150-450); RBC Distribution Width CV 13.7 % (11.6-14.6); RBC Distribution Width SD 42.7 fl (35.1-43.9); Red Blood Count 4.38 M/mm3 (4.2-5.4); White Blood Count 9.5 K/mm3 (4.4-11.0)
[2024-09-13 10:29] LABS: Vitamin B12 233 pg/mL (211-911); Vitamin D,25 Hydroxy 15.8 ng/mL
[2024-09-13 10:55] LABS: AST(SGOT) 14 U/L (15-37); Alanine Aminotransfer ALT/SGPT 19 U/L (13-56); Albumin, Serum 3.8 g/dL (3.2-5.0); Alkaline Phosphatase 87 U/L (45-117); Anion Gap 7 (5-15); BUN 16 mg/dL (7-18); BUN/Creat Ratio 18.5 RATIO (10-20); Chloride 108 mmol/L (98-107); Cholesterol 172 mg/dL (200); Creatinine, Serum 0.86 mg/dL (0.55-1.02); EST Glomerular Filtration Rate 75 mL/min (>60); Est Glom Filt Rate - Afr Amer 91 mL/min (>60); Free T3 3.3 pg/mL (2.18-3.98); Globulin 3.8 g/dL (2.2-4.2); Glucose 91 mg/dL (74-106); High Density Lipoprotein 63 mg/dL; Potassium 3.7 mmol/L (3.5-5.1); Protein, Total 7.6 g/dL (6.4-8.2); Sodium Level 139 mmol/L (136-145); T4 Free Direct 0.93 ng/dL (0.76-1.46); Triglycerides 110 mg/dL; Very Low Density Lipoprotein 22 mg/dL (5-40)
== END | disposition home or self-care (01) ==
PROVIDERS: PCP Family Medicine; Referring Provider Nurse Practitioner Family; Visit Provider Nurse Practitioner Family
DX: N92.6 Irregular menstruation, unspecified (principal); Z13.21 Encounter for screening for nutritional disorder; Z13.220 Encounter for screening for lipoid disorders; Z13.29 Encounter for screening for other suspected endocrine disorder
CPT/HCPCS: 36415; 76830; 76856; 80053; 80061; 82306; 82607; 84439; 84443; 84481; 85025

== ENCOUNTER 2024-10-13 06:07 | Emergency (ER) | payer OTHER, SELFPAY ==
[2024-10-13 06:10] VITALS: BP 150/65; PULSE 83; RESP 18; TEMP 37.4; O2SAT 98; BMI 39.8
--- NOTE | 2024-10-13 06:23 | ED.VIS.GI ---
HPI HPI - GI History of Present Illness Chief Complaint: Abd Pain Informant: patient Abdominal Pain/Flank Pain Onset: Days (3) Context: Gradual Onset Timing: Continuous Quality: Aching Location: LUQ Current Severity: Moderate Maximum Severity: Severe Worsened by: Nothing Relieved by: Nothing Nausea/Vomiting/Emesis GI Symptom: Positive for Nausea; Negative for Vomiting Diarrhea/Melena/Hematochezia GI Symptom: Positive for Diarrhea and Hematochezia Stool Quality: Positive for Loose Narrative Narrative: 44-year-old female has had nausea for about 10 days, followed by pain in her left mid and upper abdomen for the past 2 to 3 days gradual in onset worsening overnight. She has had diverticulitis before and feels like this is similar. No urinary symptoms. No vomiting. No fevers or chills. She is having some mucousy loose stools with small amount of blood in it that is acute in the last couple days as well. Not a lot. PFSH [facility] Medical History Genital herpes affecting HPV (human papilloma virus) infection Prolonged rupture of membranes, delivered macrosomia depression Gestational HTN Hx of endometriosis Retroverted uterus Fallopian tube disorder History of echocardiogram Loss of hearing Cancer History of steroid therapy Fatty liver Chiari malformation History of hiatal hernia History of diverticulitis Gastric reflux Former smoker Sleep apnea BiPAP (biphasic positive airway pressure) dependence Shortness of breath on exertion History of in vitro fertilization History of loss Sleep apnea Irregular esophago-gastric mucosal junction Diverticula of intestine Asthma Fatigue Stomach ulcer SOB (shortness of breath) Cancer Home Medications ?Medication ?Instructions ?Recorded ?Last Taken ?Type multivitamin with minerals-folic 1 tab PO DAILY 07/13/22 02/28/23 History acid 200 mcg chewable tablet (Adult Multivitamin Gummies) breast pump (Unda #1 ea 12/15/22 Unknown Rx Breast Pump) acyclovir 200 mg capsule 200 mg PO TID PRN HSV 10/02/24 Unknown History pantoprazole 40 mg tablet,delayed 40 mg PO QDAY #90 tabs 10/02/24 Unknown Rx release amoxicillin 875 mg-potassium 875 mg PO Q12H #20 TABLETS 10/13/24 Unknown Rx clavulanate 125 mg tablet ondansetron 8 mg disintegrating 8 mg PO Q8H PRN nausea and 10/13/24 Unknown Rx tablet vomiting #115 tabs Allergy/AdvReac Type Severity Reaction Status Date / Time erythromycin base Allergy Mild Rash Verified 10/13/24 06:09 cephalexin (From Keflex) Allergy Hives Verified 10/13/24 06:09 tree nut Allergy Anaphylaxis Verified 10/13/24 06:09 venom-honey bee Allergy Anaphylaxis Verified 10/13/24 06:09 meperidine HCl (From Demerol) AdvReac Unknown Verified 10/13/24 06:09 Family History Father Sleep apnea Mother Cancer skin cancer Grandmother Cancer uterine Breast cancer, Onset Age: 60 Maternal Aunt Breast cancer, Onset Age: 60 Maternal Surgical History H/O vein stripping H/O dilation and curettage H/O bilateral salpingectomy H/O laparoscopy Hx of colonoscopy History of esophagogastroduodenoscopy (EGD) Status post dilation of esophageal narrowing History of myringotomy Hx of tonsillectomy Hx of umbilical hernia repair Hx of section History of D&C Tubal reversal surgical follow up Encounter for tubal ligation Social History adopted: No household members: spouse and children housing: house number of children: 3 current occupational status: employed current occupation: [employer] current occupational exposures/hazards: No pets and animals: Yes pets and animals: dog(s) history of recent travel: Yes ([place]) out of state: Yes out of country: No sexually active: Yes Smoking Status: Former smoker Tobacco: How many years used: 13 second hand exposure: Yes alcohol intake: former details: pre rare substance use type: does not use well-balanced diet: about half the time caffeine: No eating out: 1-3 times/week during the past year weight has: remained stable what type of physical activity do you participate in: none xavier/buddhism: Other seatbelt use: always do you feel safe at home: Yes additional social history: 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 [employer] ROS ROS ED Constitutional Constitutional ED: Denies chills or fever(s) Eyes Eyes: Denies change in vision or diplopia ENT ENT ED: Denies rhinorrhea or sore throat Cardiovascular Cardiovascular: Denies chest pain or palpitations Respiratory/Chest Respiratory/Chest: Denies cough or dyspnea Gastrointestinal Gastrointestinal: Reports abdominal pain, diarrhea and nausea; Denies melena or vomiting Genitourinary Genitourinary ED: Denies dysuria or hematuria Musculoskeletal Musculoskeletal: Denies myalgias or neck pain Integumentary Denies abscess or rash Neurologic Neurologic: Denies headache(s), paresthesias or weakness EXAM Physical Exam Const Vital Signs: 10/13/24 06:10 Temperature 99.4 F H Temperature Source Oral Pulse Rate 83 Respiratory Rate 18 Blood Pressure 150/65 H Blood Pressure Mean 93 Pulse Ox 98 Oxygen Delivery Method Room Air Positive well nourished and well developed General Appearance ED: well developed and NAD HEENT Reports moist mucous membranes normocephalic and atraumatic Eyes PERRL and EOMs intact bilaterally Neck full ROM and supple Resp normal respiratory effort and clear to auscultation bilaterally Cardio regular rate, regular rhythm and no murmurs GI non-distended GI Narrative: Tender left lower quadrant, left mid abdomen. No guarding or rebound. No pulsatile mass. No Christopher sign or Carter Carvalho sign. Otherwise benign abdomen. Auscultation: normoactive bowel sounds Palpation: soft Back/Spine no CVA tenderness General Back: other FROM Extremity normal to inspection General Extremety ED: Negative for edema, pulses abnormal or tenderness General Extremity: Negative for edema or pulses abnormal Neuro oriented x3, CN's II-XII intact bilaterally and no sensory deficits noted Sensorium / Orientation: awake and alert Motor Exam: strength 5/5 throughout Skin no rashes or lesions noted and no wounds MDM MDM MDM Narrative Medical decision making narrative: Patient has a low-grade temperature but is otherwise stable with regards to her hemodynamics and clinically. Offered analgesics and Zofran, she excepted Toradol, as well as some IV fluids obtaining labs and a CT to evaluate for diverticulitis and/or perforation/abscess. This was performed I reviewed the images and the report which I agree with, consistent with uncomplicated sigmoid diverticulitis. Right is negative ruling out ectopic, the rest of her blood work is noted and unremarkable she has a very mild leukocytosis. She is doing well clinically, and feeling a little better after the Zofran and Toradol. She has had amoxicillin in the past and is not allergic to it, and did not tolerate the Cipro Flagyl combination well before so prescribing her Augmentin monotherapy is appropriate, in addition to Zofran and she can follow-up as an outpatient. She comfortable with that plan. Lab Data Attestation: I reviewed the patient's lab results. Labs: Laboratory Results - last 24 hr 10/13/24 06:30 WBC 11.4 H RBC 3.98 L Hgb 11.4 L Hct 34.5 L MCV 86.7 MCH 28.6 MCHC 33.0 RDW Std Deviation 43.5 RDW Coeff of Noe 13.6 Plt Count 223 MPV 10.1 Immature Gran % (Auto) 0.400 Neut % (Auto) 73.7 H Lymph % (Auto) 16.2 [address] [place] % (Auto) 8.9 Eos % (Auto) 0.6 Baso % (Auto) 0.2 Absolute Neuts (auto) 8.4 H Absolute Lymphs (auto) 1.84 Nucleated RBC % 0 Sodium 137 Potassium 4.0 Chloride Direct 106 Carbon Dioxide 21.5 L Anion Gap 10 BUN 12 Creatinine 0.71 Estim Creat Clear Calc 144.53 Est GFR (MDRD) Non-Af 108 BUN/Creatinine Ratio 16.3 Glucose 96 Calcium 8.5 Total Bilirubin 0.50 AST 14 ALT 9 Alkaline Phosphatase 74 Total Protein 6.3 Albumin 3.6 Globulin 2.7 Albumin/Globulin Ratio 1.3 Serum , Qual NEGATIVE Radiography Diagnostic Testing: Clinical Impression(s) from Imaging Studies Abdomen/Pelvis CT 10/13/24 06:57 IMPRESSION: Acute uncomplicated mild appearing proximal sigmoid diverticulitis. No abscess, bowel obstruction or free air. Trace pelvic free fluid. 5.5 cm right ovarian/adnexal cystic lesion, 2.7 cm right ovarian cystic lesion described by preceding ultrasound as above. May follow-up with repeat ultrasound evaluation in 1-2 menstrual cycles to further evaluate. Small hiatal hernia. One or more dose reduction techniques were used (e.g., Automated exposure control, adjustment of the mA and/or kV according to patient size, use of iterative reconstruction technique). Reading Location: [id number] Discharge Plan Triage Chief Complaint: Abd Pain ED Provider: Eliel Botello Dx/Rx/DC Orders Clinical Impression: Sigmoid diverticulitis Instructions: Diverticulitis Dc Prescriptions: New ondansetron 8 mg tablet,disintegrating 8 mg PO Q8H PRN (Reason: nausea and vomiting) Qty: 115 0RF amoxicillin-pot clavulanate 875-125 mg tablet 875 mg PO Q12H Qty: 20 0RF No Action multivit with min-folic acid [Adult Multivitamin Gummies] 200 mcg tablet,chewable 1 tab PO DAILY acyclovir 200 mg capsule 200 mg PO TID PRN (Reason: HSV) pantoprazole 40 mg tablet,delayed release (DR/EC) 40 mg PO QDAY Qty: 90 1RF Rx Instructions: take on an empty stomach once daily (DME) breast pump [Easy Feed Electric Breast Pump] Device See Rx Instructions .Route Qty: 1 0RF Rx Instructions: As directed Primary Care Provider: Robert Friend Referrals: Robert Friend MD [Primary Care Provider] - 1-2 Weeks (and/or Gastroenterology) Print Language: Macanese Disposition Disposition: Home, Self Care
[2024-10-13] MEDS: Ketorolac 30 MG/ML Syringe IV (06:36)
[2024-10-13] MEDS: Ondansetron 4 MG/2 ML Vial IV (06:36)
[2024-10-13] MEDS: 0.9% Normal Saline (1000mL) 1,000 ML 999 ML IV (06:36)
--- NOTE | 2024-10-13 06:57 | CT_ITS ---
PROCEDURE: ABDOMEN/PELVIS W IV CONT ONLY REASON FOR EXAM: Left-sided abdomen pain TECHNIQUE: Abdomen and pelvis CT with intravenous contrast. With coronal and sagittal reformatted images IV CONTRAST: 100 cc Isovue 370 COMPARISON: None. FINDINGS: Lung bases: Clear Liver: Unremarkable. Gallbladder: Unremarkable. Spleen: Unremarkable. Pancreas: Unremarkable. Adrenals: Unremarkable. Kidneys: Symmetric nephrograms without hydronephrosis or perinephric stranding.. Bladder: Unremarkable. Reproductive Organs: 5.5 cm cystic lesion right adnexa/ovary for example coronal 56. Previous ultrasound of 09/13/2024 right ovarian cyst measured 2.7 cm.. Bowel: Small hiatal hernia. Diverticulosis with mild pericolonic stranding and edema adjacent to the proximal sigmoid colon consistent with acute uncomplicated diverticulitis. No abscess, bowel obstruction or free air. Trace pelvic free fluid. Appendix: Normal caliber without secondary signs. Lymph nodes: No suspicious lymph node enlargement. Vasculature: Major vascular structures are unremarkable. Peritoneum / Retroperitoneum: No free air. Bones: Unremarkable. CT/Abdomen/Pelvis W IV Cont ONLY IMPRESSION: Acute uncomplicated mild appearing proximal sigmoid diverticulitis. No abscess , bowel obstruction or free air. Trace pelvic free fluid. 5.5 cm right ovarian/adnexal cystic lesion, 2.7 cm right ovarian cystic lesion described by preceding ultrasound as above. May follow-up with repeat ultrasound evaluation in 1-2 menstrual cycles to further evaluate. Small hiatal hernia. One or more dose reduction techniques were used (e.g., Automated exposure contr ol, adjustment of the mA and/or kV according to patient size, use of iterative reconstruction technique). Reading Location: [id number]
[2024-10-13 07:00] LABS: ALB/GLOB Ratio 1.3 RATIO (0.9-2.4); AST(SGOT) 14 U/L (<=31); Alanine Aminotransfer ALT/SGPT 9 U/L (<=34); Albumin, Serum 3.6 g/dL (3.5-5.0); Alkaline Phosphatase 74 U/L (35-104); Anion Gap 10 (5-15); BUN 12 mg/dL (4-19); BUN/Creat Ratio 16.3 RATIO (10-20); Calcium 8.5 mg/dL (7.6-11.0); Carbon Dioxide 21.5 mmol/L (22.0-29.0); Chloride 106 mmol/L (96-108); Creatinine, Serum 0.71 mg/dL (0.70-1.20); EST Glomerular Filtration Rate 108 (>60); Estimated Creatinine Clearance 144.53 ml/min; Globulin 2.7 g/dL (2.2-4.2); Glucose 96 mg/dL (70-99); Protein, Total 6.3 g/dL (5.9-8.4); Sodium Level 137 mmol/L (133-145)
[2024-10-13 07:14] LABS: Absolute Lymphocyte Count 1.84 X10^3/uL (0.83-4.51); Absolute Neutrophil Count 8.4 X10^3/uL (2.0-7.7); Basophil# 0.02 X10^3/uL; Basophil% 0.2 % (0-1); Eosinophil# 0.07 X10^3/uL; Eosinophils% 0.6 % (0-5); Hematocrit 34.5 % (37-47); Hemoglobin 11.4 g/dL (12.0-15.0); Lymphocyte # 1.84 X10^3/ul (0.83-4.51); Lymphocyte % 16.2 % (19-41); Mean Corpuscular Hgb 28.6 pg (27.0-32.0); Mean Corpuscular Volume 86.7 fL (81-99); Mean Platelet Vol. 10.1 fl (6.2-12.0); Monocyte# 1.01 X10^3/uL; Monocyte% 8.9 % (0-10); NRBC Flagged by Analyzer 0 % (0-5); Neutrophil # 8.37 X10^3/uL (2.7-7.7); Neutrophil % 73.7 % (47-70); Platelet Count 223 K/mm3 (150-450); RBC Distribution Width CV 13.6 % (11.6-14.6); RBC Distribution Width SD 43.5 fl (35.1-43.9); Red Blood Count 3.98 M/mm3 (4.2-5.4); White Blood Count 11.4 K/mm3 (4.4-11.0)
[2024-10-13 07:20] LABS: Internal QC Validated? YES +Cl - CLEAR BKGD; Pregnancy, Serum, hCG Quali. NEGATIVE Negative
[2024-10-13] MEDS: Amox/Clavulanate 875 MG Tablet PO (08:57)
[2024-10-13 08:59] VITALS: BP 152/91; PULSE 78; RESP 16; TEMP 36.6; O2SAT 97
== END 2024-10-13 09:14 | disposition home or self-care (01) ==
PROVIDERS: Emergency Provider Emergency Medicine; PCP Family Medicine; Visit Provider Emergency Medicine
DX: K57.32 Diverticulitis of large intestine without perforation or abscess without bleeding (principal); Z87.891 Personal history of nicotine dependence; R11.2 Nausea with vomiting, unspecified; R10.12 Left upper quadrant pain; G47.30 Sleep apnea, unspecified; K21.9 Gastro-esophageal reflux disease without esophagitis; Z79.899 Other long term (current) drug therapy; Z98.51 Tubal ligation status
CPT/HCPCS: 74177; 80053; 84703; 85025; 96361; 96374; 96375; 99283; Q9967; A4216; J2405

== ENCOUNTER → 2024-11-13 | Outpatient (CLI) | payer OTHER, SELFPAY ==
--- NOTE | 2024-11-13 14:10 | CT_ITS ---
PROCEDURE: ABDOMEN/PELVIS WITH CONTRAST 11/13/2024 REASON FOR EXAM: LLQ PAIN, DIVERTICULITIS? TECHNIQUE: Abdomen and pelvis CT with intravenous contrast. Coronal and Sagittal reconstruction series were provided. PATIENT PREPARATION: Per protocol ORAL CONTRAST TYPE: Given. CONTRAST: Isovue-300 VOLUME: 94mL One or more dose reduction techniques were used (e.g., Automated exposure control, adjustment of the mA and/or kV according to patient size, use of iterative reconstruction technique. RADIATION DOSE SUMMARY: CTDlvol: 18.5 mGy DLP: 1334.73 mGycm COMPARISON: Comparison is made with prior study dated October 13, 2024. FINDINGS: Lung bases: Unremarkable. Liver: Diffuse fatty infiltration. Gallbladder: Unremarkable Spleen: Normal size. Pancreas: Normal size without evidence of mass surrounding inflammation or ductal dilation. Adrenals: Unremarkable Kidneys: Normal renal sizes. No hydronephrosis. Bladder: No abnormality is seen. Reproductive Organs: Normal uterine size and contour. Ovaries are unremarkable. The previously seen right ovarian cyst is not present at this time. Bowel: Sigmoid colon diverticula with wall thickening and adjacent inflammatory changes. No evidence of perforation or abscess. Moderate-sized hiatal hernia. Appendix: Unremarkable Lymph nodes: Unremarkable. Vasculature: The abdominal aorta and IVC are normal. Peritoneum / Retroperitoneum: Unremarkable Bones: Unremarkable CT/Abdomen/Pelvis WITH Contrast IMPRESSION: Findings in keeping with the non complicated acute sigmoid diverticulitis. Moderate-sized hiatal hernia. Fatty infiltration of the liver. Reading Location: [id number]
== END | disposition home or self-care (01) ==
LOC: CT 11:56
PROVIDERS: PCP Family Medicine; Referring Provider Nurse Practitioner Acute Care; Visit Provider Nurse Practitioner Acute Care
DX: K57.92 Diverticulitis of intestine, part unspecified, without perforation or abscess without bleeding (principal); R10.32 Left lower quadrant pain
CPT/HCPCS: 74177; Q9967

== ENCOUNTER 2025-01-23 12:22 | Day surgery (SDC) | payer OTHER, SELFPAY ==
[2025-01-23] VITALS (7 sets, daily range): BP systolic 67–127; BP diastolic 47–74; PULSE 67–77; RESP 12–16; TEMP 36.6–36.8; O2SAT 98–100; BMI 38.5
--- NOTE | 2025-01-23 13:00 | PCM.PRE.AN2 ---
ASA Classification* ASA Classification ASA Classification: 2 Assessment & Plan Anesthesia* Anesthesia Assessment Anesthesia Assessment: Discussed sedation and/or anesthesia options, risks, benefits, and alternatives with patient/parents/legal guardian/POA. Questions invited. The patient/parents/legal guardian/POA seems to understand and agrees to proceed with anesthesia plan. Reviewed the physical assessment, medical history, allergy history and patient home medications list prior to surgery/procedure/anesthetic and documented any changes. Performed airway and anesthesia risk assessments. Anesthesia Type Anesthesia Type: MAC Anesthesia Focused Assessment* Airway Assessment Mouth opens: >3 cm Mallampati Score: II Labs Anesthesia Preop lab: CBC WBC 11.4 K/mm3 (4.4-11.0) H 10/13/24 06:30 10/13/24 RBC 3.98 M/mm3 (4.2-5.4) L 10/13/24 06:30 10/13/24 Hgb 11.4 g/dL (12.0-15.0) L 10/13/24 06:30 10/13/24 Hct 34.5 % (37-47) L 10/13/24 06:30 10/13/24 Plt Count 223 K/mm3 (150-450) 10/13/24 06:30 10/13/24 CHEMISTRY Potassium 4.0 mmol/L (3.3-5.1) 10/13/24 06:30 10/13/24 Sodium 137 mmol/L (133-145) 10/13/24 06:30 10/13/24 Magnesium 2.1 mg/dL (1.6-2.6) 05/17/22 09:29 05/17/22 BUN 12 mg/dL (4-19) 10/13/24 06:30 10/13/24 Creatinine 0.71 mg/dL (0.70-1.20) 10/13/24 06:10/13/24 Glucose 96 mg/dL (70-99) 10/13/24 06:30 10/13/24 TSH 1.220 uIU/mL (0.358-3.740) 09/13/24 09:07 09/13/24 COAG HCG, Quant < 1 mIU/mL (1-3) 05/03/23 14:42 05/03/23 Urine Test Negative Negative 01/12/22 13:00 01/12/22 Pre-Assessment Diagnosis/Proposed Procedure Planned Operative Procedure(s): Colonoscopy,EGD Anesthesia History 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 When Was Last Pacemaker Check QUESTION #4 FULL TEXT: You/Your Family Experience fever (hyperthermia) with Anesthesia Last Oral Intake Last Oral intake: Last Oral Intake NPO since Meds taken in AM with sips of water? 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 Has anyone observed you stop breathing during sleep? STOP Results Positive 01/21/25 12:12 QUESTION #5 FULL TEXT : Do you snore loudly (louder than talking or can be heard through closed doors)? 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 Specify any problems Hx of Preganancy in last 3 No 01/21/25 12:12 Months Nurse Filling Out Transfusion [email or web address] 01/21/25 12:12 & Questions: Date: 01/21/25 01/21/25 12:12 Time: 12:14 01/21/25 12:12 Patient unable to answer at this time (ie. 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 Hx Now No 01/21/25 12:12 Gestational Age (in weeks): EDC: Hx Hx Para Hx Section SAB No 01/21/25 12:12 Active Medications Active Medications: Current Medications Generic Name Dose Route Start Last Admin Trade Name Freq PRN Reason Stop Dose Admin Lactated Ringer's 1,000 mls @ 15 mls/hr 01/23/25 13:00 IV .Q48H MINISTERIO PFSH Medical History Dietary restriction Genital herpes affecting HPV (human papilloma virus) infection Prolonged rupture of membranes, delivered macrosomia depression Gestational HTN Hx of endometriosis Retroverted uterus Fallopian tube disorder History of echocardiogram Loss of hearing Cancer History of steroid therapy Fatty liver Chiari malformation History of hiatal hernia History of diverticulitis Gastric reflux Former smoker BiPAP (biphasic positive airway pressure) dependence History of in vitro fertilization History of loss Sleep apnea Irregular esophago-gastric mucosal junction Diverticula of intestine Asthma Fatigue Stomach ulcer SOB (shortness of breath) Cancer Home Medications ?Medication ?Instructions ?Recorded ?Last Taken ?Type multivitamin with minerals-folic 1 tab PO DAILY 07/13/22 02/28/23 History acid 200 mcg chewable tablet (Adult Multivitamin Gummies) breast pump (Easy Feed Electric #1 ea 12/15/22 Unknown Rx Breast Pump) acyclovir 200 mg capsule 200 mg PO TID PRN HSV 10/02/24 Unknown History pantoprazole 40 mg tablet,delayed 40 mg PO QDAY #90 tabs 10/02/24 Unknown Rx release naproxen sodium 220 mg capsule 220 mg PO QDAY PRN pain 10/23/24 Unknown History (Aleve) ondansetron 8 mg disintegrating 8 mg PO Q8H PRN nausea and 11/14/24 Unknown Rx tablet vomiting #10 tabs albuterol sulfate 90 mcg/actuation 2 puff inhalation Q4H PRN PRN 01/21/25 Unknown History aerosol inhaler wheezing Allergy/AdvReac Type Severity Reaction Status Date / Time erythromycin base Allergy Mild Rash Verified 01/21/25 12:00 cephalexin (From Keflex) Allergy Hives Verified 01/21/25 12:00 tree nut Allergy Anaphylaxis Verified 01/21/25 12:00 venom-honey bee Allergy Anaphylaxis Verified 01/21/25 12:00 meperidine HCl (From Demerol) AdvReac Unknown Verified 01/21/25 12:00 Family History Father Sleep apnea Mother Cancer skin cancer Grandmother Cancer uterine Breast cancer, Onset Age: 60 Maternal Aunt Breast cancer, Onset Age: 60 Maternal Surgical History H/O vein stripping H/O dilation and curettage H/O bilateral salpingectomy H/O laparoscopy Hx of colonoscopy History of esophagogastroduodenoscopy (EGD) Status post dilation of esophageal narrowing History of myringotomy Hx of tonsillectomy Hx of umbilical hernia repair Hx of section History of D&C Tubal reversal surgical follow up Encounter for tubal ligation Social History adopted: No household members: spouse and children housing: house number of children: 3 current occupational status: employed current occupation: [employer] current occupational exposures/hazards: No pets and animals: Yes pets and animals: dog(s) history of recent travel: Yes ([place]) out of state: Yes out of country: No sexually active: Yes Smoking Status: Former smoker Tobacco: How many years used: 13 second hand exposure: Yes alcohol intake: former details: pre rare substance use type: does not use well-balanced diet: about half the time caffeine: No eating out: 1-3 times/week during the past year weight has: remained stable what type of physical activity do you participate in: none xavier/islam: Other seatbelt use: always do you feel safe at home: Yes additional social history: Benny hicks at [employer] Review of Systems (Anesthesia) ROS Narrative System reviewed and no additional complaints, except as documented.
--- NOTE | 2025-01-23 13:14 | HP.PCM_ITS ---
HPI - General General Date of Admission: 01/23/25 Date of Service: 01/23/25 Chief Complaint: diverticulitis HPI Narrative 44y/o female presents for follow-up post ED evaluation on 10/13/2024. CT revealing for acute uncomplicated mild appearing proximal sigmoid diverticulitis. Treated with Augmentin BID x10 days. WBC 11.4. 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 [facility] Medical History Dietary restriction Genital herpes affecting HPV (human papilloma virus) infection Prolonged rupture of membranes, delivered macrosomia depression Gestational HTN Hx of endometriosis Retroverted uterus Fallopian tube disorder History of echocardiogram Loss of hearing Cancer History of steroid therapy Fatty liver Chiari malformation History of hiatal hernia History of diverticulitis Gastric reflux Former smoker BiPAP (biphasic positive airway pressure) dependence History of in vitro fertilization History of loss Sleep apnea Irregular esophago-gastric mucosal junction Diverticula of intestine Asthma Fatigue Stomach ulcer SOB (shortness of breath) Cancer Home Medications ?Medication ?Instructions ?Recorded ?Last Taken ?Type multivitamin with minerals-folic 1 tab PO DAILY 01/20/25 History acid 200 mcg chewable tablet (Adult Multivitamin Gummies) breast pump ([employer] #1 ea 12/15/22 Unknown Rx Breast Pump) acyclovir 200 mg capsule 200 mg PO TID PRN HSV Unknown History pantoprazole 40 mg tablet,delayed 40 mg PO QDAY #90 ta bs 10/02/24 01/21/25 Rx release naproxen sodium 220 mg capsule 220 mg PO QDAY PRN pain 10/23/24 Unknown History (Alerosemary) ondansetron 8 mg disintegrating 8 mg PO Q8H PRN nausea and 11/14/24 Unknown Rx tablet vomiting #10 tabs albuterol sulfate 90 mcg/actuation 2 puff inhalation Q 4H PRN PRN 01/21/25 01/16/25 History aerosol inhaler wheezing Allergy/AdvReac Type Severity Reaction Status Date / Time erythromycin base Allergy Mild Rash Verified 01/23/25 13:09 cephalexin (From Keflex) Allergy Hives Verified 01/23/25 13:09 tree nut Allergy Anaphylaxis Verified 01/23/25 13:09 venom-honey bee Allergy Anaphylaxis Verified 01/23/25 13:09 meperidine HCl (From Demerol) AdvReac Unknown Verified 01/23/25 13:09 Family History Father Sleep apnea Mother Cancer skin cancer Grandmother Cancer uterine Breast cancer, Onset Age: 60 Maternal Aunt Breast cancer, Onset Age: 60 Maternal Surgical History H/O vein stripping H/O dilation and curettage H/O bilateral salpingectomy H/O laparoscopy Hx of colonoscopy History of esophagogastroduodenoscopy (EGD) Status post dilation of esophageal narrowing History of myringotomy Hx of tonsillectomy Hx of umbilical hernia repair Hx of section History of D&C Tubal reversal surgical follow up Encounter for tubal ligation Social History adopted: No household members: spouse and children housing: house number of children: 3 current occupational status: employed current occupation: [employer] current occupational exposures/hazards: No pets and animals: Yes pets and animals: dog(s) history of recent travel: Yes ([place]) out of state: Yes out of country: No sexually active: Yes Smoking Status: Former smoker Tobacco: How many years used: 13 second hand exposure: Yes alcohol intake: former details: pre rare substance use type: does not use well-balanced diet: about half the time caffeine: No eating out: 1-3 times/week during the past year weight has: remained stable what type of physical activity do you participate in: none xavier/shinto: Other seatbelt use: always do you feel safe at home: Yes additional social history: [employer] at [employer] Constitutional Constitutional: Denies fatigue, fever(s), poor appetite, weight gain or weight loss Gastrointestinal Gastrointestinal: Denies belching, bloating, change in bowel habits, change in stool character, chewing difficulty, coffee ground emesis, constipation, cramping, diarrhea, dyspepsia, dysphagia, early satiety, excessive flatus, fecal incontinence, heartburn, hematemesis, hematochezia, hemorrhoids, loose stools, melena, nausea, odynophagia, rectal bleeding, tenesmus, vomiting or weight changes Vital Signs Vital Signs Vital Signs: 01/23/25 13:11 01/23/25 13:11 Temperature 97.8 F Temperature Source Temporal Pulse Rate 74 Respiratory Rate 12 Respiratory Pattern Normal Blood Pressure 127/74 H Blood Pressure Mean 91 Blood Pressure Source Monitor Blood Pressure Position Semi-Fowlers Blood Pressure Location Left Arm Pulse Ox 98 Oxygen Delivery Method Room Air Weight Weight: 268 lb 15.423 oz Body Mass Index (BMI) 38.5 Physical Exam Const alert, oriented x3, no apparent distress and healthy appearing General Appearance: cooperative GI normal to inspection, nondistended, normoactive bowel sounds, soft to palpation, non-tender and non-distended Percussion: normal to percussion Rectal Exam: deferred Assessment & Plan Assessment/Plan (1) Diverticulitis: (2) Dysphagia: (3) LLQ pain: PLAN: Assessment and Plan Assessment and Plan (1) Diverticulitis: Status: Acute Medications: New amoxicillin-pot clavulanate 875-125 mg 1 TAB PO Q8H 7 days 21 tabs 0RF diverticulitis fluconazole (Diflucan) 200 mg PO ONCE 1 TAB 0RF Plan 44y/o female presents for follow-up post ED evaluation on 10/13/2024. CT revealing for acute uncomplicated mild appearing proximal sigmoid diverticulitis. Treated with Augmentin BID x10 days. WBC 11.4. She reports pain has improved but not resolved and is fearful of worsening symptoms. She complains of constipation and straining with bowel movements. She denies any fevers, night sweats, severe pain or bleeding. She will complete a 7d course of Augmentin TID and provide symptom update in 1 week. If symptoms are persisting or worsen will repeat CT. Patient Instructions: Augmentin TID x7 days Diflucan 200mg x1 dose Avoid straining with bowel movements Low fiber diet Miralax 1-2x a day If symptoms are persisting will repeat CT and possibly delay scopes pending finding
[2025-01-23] MEDS: Lactated Ringers 1,000 ML 15 ML IV (13:22)
--- NOTE | 2025-01-23 13:30 | EGD_PTH ---
PATIENT: PRISCILA CARPENTER LOC: EN U#:[id number] AGE/SX: 44/F ROOM: RE01/23/[address]: Dr. Andrew Husain DO : 1980 BED: DIS: 01/23/2025 SPEC #: [id number] RECD: 01/24/25 07:37 STATUS: TATI JESSICA #: [id number] ELO: 01/23/25 13:[address]: Andrew Husain DEPT: SURGICAL PATHOLOGY RECD BY: Joseph Hernandez ENTERED: 01/24/25 12:04 SP TYPE: EGD BIOPSY [place] DR: Dr. Robert Friend MD Tissues: A - Esophagus, NOS Procedures: Special Stain Group I Surgery Specimen Level IV GMS Stain (control) HEADER OPERATION: Colonoscopy, EGD with biopsy and Argon plasma coagulation PRE-OP DIAGNOSIS: Diverticulitis, dysphagia, left lower quadrant pain TISSUE SUBMITTED: A- Random esophagus biopsy MICROSCOPIC DIAGNOSIS A. Esophagus, random, biopsy: * Squamous mucosa with reactive changes and mild acute inflammation, negative for eosinophils. * Scant columnar mucosa negative for goblet cell metaplasia. * PASD stain is negative for fungal organisms. MICROSCOPIC DESCRIPTION Slides are reviewed. All matched controls reacted appropriately. These tests were developed and their performance characteristics determined by [facility]. They may not have been cleared or approved by the U.S. Food and Drug Administration. The FDA has determined that such clearance or approval is not necessary.? The above immunohistochemical/dualISH?markers are reviewed by the Pathologist. GROSS DESCRIPTION A. Received in formalin labeled with the patient's name and date of . Designated as random esophagus BX is a 1.5 x 0.4 x 0.1 cm aggregate of barragan tissue fragments. Entirely submitted in 1 cassette. [facility] 01/24/2025 CPT:89434, 48321
--- NOTE | 2025-01-23 14:30 | OP.EGD_ITS ---
Patient Name: Jing Velez Procedure Date: 01/23/2025 1:45 PM Date of : 1980 Age: 44 Procedure: Upper GI endoscopy Indications: Epigastric abdominal pain, Functional Dyspepsia, Dysphagia Providers: Andrew Husain DO Referring MD: Robert Friend Medicines: Monitored Anesthesia Care Patient Profile: This is a 44 year old female. Refer to note in patient chart for documentation of history and physical. Patient has symptoms of acute epigastric abdominal pain, chronic dysphagia, dysphagia with solids and acute dyspepsia. Complications: No immediate complications. Procedure: Pre-Anesthesia Assessment: - Prior to the procedure, a History and Physical was performed, and patient medications and allergies were reviewed. The patient is competent. The risks and benefits of the procedure and the sedation options and risks were discussed with the patient. All questions were answered and informed consent was obtained. Patient identification and proposed procedure were verified by the physician in the pre-procedure area. Mental Status Examination: alert and oriented. Airway Examination: normal oropharyngeal airway and neck mobility. Respiratory Examination: clear to auscultation. CV Examination: normal. Prophylactic Antibiotics: The patient does not require prophylactic antibiotics. Prior Anticoagulants: The patient has taken no anticoagulant or antiplatelet agents except for NSAID medication. ASA Grade Assessment: II - A patient with mild systemic disease. After reviewing the risks and benefits, the patient was deemed in satisfactory condition to undergo the procedure. The anesthesia plan was to use monitored anesthesia care (MAC). Immediately prior to administration of medications, the patient was re-assessed for adequacy to receive sedatives. The heart rate, respiratory rate, oxygen saturations, blood pressure, adequacy of pulmonary ventilation, and response to care were monitored throughout the procedure. The physical status of the patient was re-assessed after the procedure. After obtaining informed consent, the endoscope was passed under direct vision. Throughout the procedure, the patient's blood pressure, pulse, and oxygen saturations were monitored continuously. The colonoscope was introduced through the mouth, and advanced to the third part of the duodenum. Small bowel enteroscopy was deemed necessary. The upper GI endoscopy was accomplished without difficulty. The patient tolerated the procedure well. Scope In: 1:56:39 PM Scope Out: 2:07:11 PM Total Procedure Duration Time 0 hours 10 minutes 32 seconds Findings: A moderate Schatzki ring was found at the gastroesophageal junction. Coagulation for tissue destruction using argon plasma at 0.3 liters/minute and 20 mann was successful. Estimated blood loss was minimal. The Z-line was irregular and was found 40 cm from the incisors. Biopsies were taken with a cold forceps for histology. Verification of patient identification for the specimen was done. Estimated blood loss was minimal. A large hiatal hernia was present. No gross lesions were noted in the entire examined duodenum. Impression: - Moderate Schatzki ring. Treated with argon plasma coagulation (APC). - Z-line irregular, 40 cm from the incisors. Biopsied. - Large hiatal hernia. - No gross lesions in the entire examined duodenum. Recommendation: - Discharge patient to home. - Resume previous diet. - Continue present medications. - Await pathology results. - Repeat upper endoscopy in 6 months to evaluate the response to therapy. Procedure Code(s): --- Professional --- 73003, Small intestinal endoscopy, enteroscopy beyond second portion of duodenum, not including ileum; with ablation of tumor(s), polyp(s), or other lesion(s) not amenable to removal by hot biopsy forceps, bipolar cautery or snare technique 00928, 51,59, Small intestinal endoscopy, enteroscopy beyond second portion of duodenum, not including ileum; with biopsy, single or multiple CPT copyright 2021 [employer] [place] [employer]. All rights reserved. The codes documented in this report are preliminary and upon manual lathe machinist review may be revised to meet current compliance requirements. Andrew Husain DO 01/23/2025 2:30:08 PM This report has been signed electronically. Number of Addenda: 0 Note Initiated On: 01/23/2025 1:45 PM
--- NOTE | 2025-01-23 14:30 | OP.CCLET_ITS ---
01/23/2025 Robert Friend [address] [place] [address] Re : Upper GI endoscopy procedure for Jing Velez Dear Dr. Friend This procedure was performed on Thursday, January 23, 2025. My impressions and recommendations are as follows: Impressions : - Moderate Schatzki ring. Treated with argon plasma coagulation (APC). - Z-line irregular, 40 cm from the incisors. Biopsied. - Large hiatal hernia. - No gross lesions in the entire examined duodenum. Recommendations : - Discharge patient to home. - Resume previous diet. - Continue present medications. - Await pathology results. - Repeat upper endoscopy in 6 months to evaluate the response to therapy. My findings are described in the full procedure note, which is enclosed. If I can be of further assistance, please feel free to contact me at . Sincerely, Andrew Husain, 01/23/2025 2:30:08 PM This report has been signed electronically.
--- NOTE | 2025-01-23 14:32 | OP.COLON_ITS ---
Patient Name: Jing Velez Procedure Date: 01/23/2025 2:07 PM Date of : 1980 Age: 44 Procedure: Colonoscopy Indications: Screening for colorectal malignant neoplasm Providers: Andrew Husain DO Referring MD: Robert Friend Medicines: Monitored Anesthesia Care Patient Profile: This is a 44 year old female. Refer to note in patient chart for documentation of history and physical. Patient has symptoms of acute epigastric abdominal pain, chronic dysphagia, dysphagia with solids and acute dyspepsia. Last Colonoscopy: several years ago. Complications: No immediate complications. Procedure: Pre-Anesthesia Assessment: - Prior to the procedure, a History and Physical was performed, and patient medications and allergies were reviewed. The patient is competent. The risks and benefits of the procedure and the sedation options and risks were discussed with the patient. All questions were answered and informed consent was obtained. Patient identification and proposed procedure were verified by the physician in the pre-procedure area. Mental Status Examination: alert and oriented. Airway Examination: normal oropharyngeal airway and neck mobility. Respiratory Examination: clear to auscultation. CV Examination: normal. Prophylactic Antibiotics: The patient does not require prophylactic antibiotics. Prior Anticoagulants: The patient has taken no anticoagulant or antiplatelet agents except for NSAID medication. ASA Grade Assessment: II - A patient with mild systemic disease. After reviewing the risks and benefits, the patient was deemed in satisfactory condition to undergo the procedure. The anesthesia plan was to use monitored anesthesia care (MAC). Immediately prior to administration of medications, the patient was re-assessed for adequacy to receive sedatives. The heart rate, respiratory rate, oxygen saturations, blood pressure, adequacy of pulmonary ventilation, and response to care were monitored throughout the procedure. The physical status of the patient was re-assessed after the procedure. After I obtained informed consent, the scope was passed under direct vision. Throughout the procedure, the patient's blood pressure, pulse, and oxygen saturations were monitored continuously. The colonoscope was introduced through the anus and advanced to the terminal ileum. The colonoscopy was performed without difficulty. The patient tolerated the procedure well. The quality of the bowel preparation was adequate. The ileocecal valve, appendiceal orifice, and rectum were photographed. Scope In: 2:09:25 PM Scope Withdrawal Time 0 hours 7 minutes 59 seconds Scope Out: 2:20:45 PM Total Procedure Duration Time 0 hours 11 minutes 20 seconds Findings: The perianal and digital rectal examinations were normal. Multiple small and large-mouthed diverticula were found in the sigmoid colon, descending colon, splenic flexure, transverse colon and hepatic flexure. Impression: - Diverticulosis in the sigmoid colon, in the descending colon, at the splenic flexure, in the transverse colon and at the hepatic flexure. - No specimens collected. Recommendation: - Discharge patient to home. - Resume previous diet. - Continue present medications. - Repeat colonoscopy in 10 years for screening purposes. Procedure Code(s): --- Professional --- G0121, Colorectal cancer screening; colonoscopy on individual not meeting criteria for high risk CPT copyright 2021 [employer]. All rights reserved. The codes documented in this report are preliminary and upon hospital coder review may be revised to meet current compliance requirements. Andrew Husain DO 01/23/2025 2:32:42 PM This report has been signed electronically. Number of Addenda: 0 Note Initiated On: 01/23/2025 2:07 PM
--- NOTE | 2025-01-23 14:33 | OP.CCLET_ITS ---
01/23/2025 Robert Friend [address] [place] [address] Re : Colonoscopy procedure for Jing Velez Dear Dr. Friend This procedure was performed on Thursday, January 23, 2025. My impressions and recommendations are as follows: Impressions : - Diverticulosis in the sigmoid colon, in the descending colon, at the splenic flexure, in the transverse colon and at the hepatic flexure. - No specimens collected. Recommendations : - Discharge patient to home. - Resume previous diet. - Continue present medications. - Repeat colonoscopy in 10 years for screening purposes. My findings are described in the full procedure note, which is enclosed. If I can be of further assistance, please feel free to contact me at . Sincerely, Andrew Husain, 01/23/2025 2:32:42 PM This report has been signed electronically.
--- NOTE | 2025-01-23 14:35 | PCM.POST.ANE ---
Anesthesia: Postop Eval I Current Vital Signs Temperature: 98.2 F Pulse Rate: 67 Blood Pressure: 95/60 Respiratory Rate: 16 Pulse Ox: 99 Oxygen Delivery Method: Room Air Assessment Airway patent: Yes Spontaneous unlabored respirations: Yes Mental status: Awake and Calm nausea: No Vomiting: Yes Anesthesia Complication: Yes Anesthesia Complication Comment:: emesis and poss. awareness during EGD d/t obstructed IV in AC Fluid Hydration Crystalloid volume administer (ml): 700 Total IV fluid infused: 700 Progress Note Anesthesia document: Postop Eval 1 completed: Yes
--- NOTE | 2025-01-23 15:29 | PCM.POSTANE2 ---
Anesthesia Postop Eval I Sum Postop Eval Completion status Anesthesia document: Postop Eval 1 completed: Yes Anesthesia Postop Eval I Summary Anesthesia Postop Eval I Summary: Anesthesia Postop Eval I: Assessment Summary Airway patent Yes 01/23/25 14:36 [email or web address] Spontaneous unlabored Yes 01/23/25 14:36 [email or web address] respirations Mental status Awake,Calm 01/23/25 14:36 [email or web address] nausea No 01/23/25 14:36 [email or web address] Vomiting Yes 01/23/25 14:36 [email or web address] Anesthesia Postop Eval I: Fluid Summary Crystalloid volume administer 700 01/23/25 14:36 [email or web address] (ml) Colloids volume administered ( ml) Blood Product volume administered (ml) Total IV fluid infused 700 01/23/25 14:36 [email or web address] Anesthesia Postop Eval I: Summary Notes Anesthesia Complication Yes 01/23/25 14:36 [email or web address] Anesthesia Complication emesis and poss. 01/23/25 14:36 [email or web address] Comment: awareness during EGD d/t obstructed IV in AC Post-operative progress note Anesthesia: Postop Eval II Evaluation Mental status: Awake Pain Level: 0 nausea: No Vomiting: No
== END 2025-01-23 15:18 | disposition home or self-care (01) ==
LOC: EN 12:24 → AC 12:25
PROVIDERS: PCP Family Medicine; Referring Provider Family Medicine; Visit Provider Internal Medicine Gastroenterology
PROC: 0DJD8ZZ Inspection of Lower Intestinal Tract, Via Natural or Artificial Opening Endoscopic (ICD-10-PCS; CPT 45378; principal; 2025-01-23 13:25)
DX: Z12.11 Encounter for screening for malignant neoplasm of colon (principal); K44.9 Diaphragmatic hernia without obstruction or gangrene; K21.9 Gastro-esophageal reflux disease without esophagitis; K57.92 Diverticulitis of intestine, part unspecified, without perforation or abscess without bleeding; Z87.891 Personal history of nicotine dependence; Z79.899 Other long term (current) drug therapy; K22.2 Esophageal obstruction; J45.909 Unspecified asthma, uncomplicated
CPT/HCPCS: 45378; 43255; 43239; 88305; C1889; J2405

== ENCOUNTER 2025-01-25 09:18 | Emergency (ER) | payer OTHER, SELFPAY ==
[2025-01-25 09:19] VITALS: BP 136/85; PULSE 82; RESP 18; TEMP 36.9; O2SAT 98; BMI 39.6
--- NOTE | 2025-01-25 09:30 | EX.ED.DYSGE1 ---
HPI History of Present Illness Chief Complaint: Abscess Informant: patient Narrative Narrative: 44-year-old female presenting to the emergency room with concern for labial abscess. Patient states that on Tuesday while undergoing a colonoscopy prep she noticed some discomfort on the right labia. She noticed a marble sized area of swelling. She states now its progressed that the labia is swollen and firm. She notes some redness extending down to her upper thigh. Patient states that she has never had an abscess before. She denies any fever. Patient states she called her architecture consultant office and they advised her to come to emergency. She notes pain with walking. [facility] Medical History Dietary restriction Genital herpes affecting HPV (human papilloma virus) infection Prolonged rupture of membranes, delivered macrosomia depression Gestational HTN Hx of endometriosis Retroverted uterus Fallopian tube disorder History of echocardiogram Loss of hearing Cancer History of steroid therapy Fatty liver Chiari malformation History of hiatal hernia History of diverticulitis Gastric reflux Former smoker BiPAP (biphasic positive airway pressure) dependence History of in vitro fertilization History of loss Sleep apnea Irregular esophago-gastric mucosal junction Diverticula of intestine Asthma Fatigue Stomach ulcer SOB (shortness of breath) Cancer Home Medications ?Medication ?Instructions ?Recorded ?Last Taken ?Type multivitamin with minerals-folic 1 tab PO DAILY 07/13/22 01/20/25 History acid 200 mcg chewable tablet (Adult Multivitamin Gummies) breast pump (Servoy #1 ea 12/15/22 Unknown Rx Breast Pump) acyclovir 200 mg capsule 200 mg PO TID PRN HSV 10/02/24 Unknown History pantoprazole 40 mg tablet,delayed 40 mg PO QDAY #90 tabs 10/02/24 01/21/25 Rx release naproxen sodium 220 mg capsule 220 mg PO QDAY PRN pain 10/23/24 Unknown History (Alerosemary) ondansetron 8 mg disintegrating 8 mg PO Q8H PRN nausea and 11/14/24 Unknown Rx tablet vomiting #10 tabs albuterol sulfate 90 mcg/actuation 2 puff inhalation Q4H PRN PRN 01/21/25 01/16/25 History aerosol inhaler wheezing amoxicillin 875 mg-potassium 1 tab PO BID #14 tabs 01/25/25 Unknown Rx clavulanate 125 mg tablet oxycodone-acetaminophen 5 mg-325 1 tab PO Q6H PRN PRN Pain 3 days 01/25/25 Unknown Rx mg tablet #12 TABLETS sulfamethoxazole 800 1 tab PO BID #14 TABLETS 01/25/25 Unknown Rx mg-trimethoprim 160 mg tablet Allergy/AdvReac Type Severity Reaction Status Date / Time erythromycin base Allergy Mild Rash Verified 01/25/25 09:20 cephalexin (From Keflex) Allergy Hives Verified 01/25/25 09:20 tree nut Allergy Anaphylaxis Verified 01/25/25 09:20 venom-honey bee Allergy Anaphylaxis Verified 01/25/25 09:20 meperidine HCl (From Demerol) AdvReac Unknown Verified 01/25/25 09:20 Family History Father Sleep apnea Mother Cancer skin cancer Grandmother Cancer uterine Breast cancer, Onset Age: 60 Maternal Aunt Breast cancer, Onset Age: 60 Maternal Surgical History H/O vein stripping H/O dilation and curettage H/O bilateral salpingectomy H/O laparoscopy Hx of colonoscopy History of esophagogastroduodenoscopy (EGD) Status post dilation of esophageal narrowing History of myringotomy Hx of tonsillectomy Hx of umbilical hernia repair Hx of section History of D&C Tubal reversal surgical follow up Encounter for tubal ligation Social History adopted: No household members: spouse and children housing: house number of children: 3 current occupational status: employed current occupation: [employer] current occupational exposures/hazards: No pets and animals: Yes pets and animals: dog(s) history of recent travel: Yes ([place]) out of state: Yes out of country: No sexually active: Yes Smoking Status: Former smoker Tobacco: How many years used: 13 second hand exposure: Yes alcohol intake: former details: pre rare substance use type: does not use well-balanced diet: about half the time caffeine: No eating out: 1-3 times/week during the past year weight has: remained stable what type of physical activity do you participate in: none xavier/anglican: Other seatbelt use: always do you feel safe at home: Yes 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 [employer] ROS ED Constitutional Constitutional ED: Denies chills or weight loss Eyes Eyes: Denies change in vision or diplopia ENT ENT ED: Denies ear pain, rhinorrhea or sore throat Cardiovascular Cardiovascular: Denies chest pain, orthopnea, palpitations or racing heartbeat Respiratory/Chest Respiratory/Chest: Denies cough, dyspnea or orthopnea Gastrointestinal Gastrointestinal: Denies abdominal pain, diarrhea, nausea or vomiting Genitourinary Genitourinary ED: Reports other Details: See history of present illness ; Denies dysuria, hematuria or urinary frequency Musculoskeletal Musculoskeletal: Denies arthralgias or myalgias Integumentary Denies abscess or rash Neurologic Neurologic: Denies headache(s) or weakness Psychiatric Psychiatric: Denies anxiety, depression, suicidal ideation or suicidal thoughts Endocrine Endocrinology: Denies polydipsia, polyphagia or polyuria Allergic/Immunologic Allergic/Immunologic ED: Denies mouth swelling, tongue swelling or urticaria EXAM Physical Exam Const Vital Signs: 01/25/25 09:19 Temperature 98.4 F Temperature Source Oral Pulse Rate 82 Respiratory Rate 18 Blood Pressure 136/85 H Blood Pressure Mean 102 Pulse Ox 98 Oxygen Delivery Method Room Air Positive well nourished and well developed General Appearance ED: well developed and NAD HEENT Reports normocephalic, head/scalp atraumatic and moist mucous membranes Eyes PERRL and EOMs intact bilaterally Neck no lymphadenopathy, supple and no JVD Resp normal respiratory effort and clear to auscultation bilaterally Cardio regular rate, regular rhythm and no murmurs GI normal to inspection, nondistended, normoactive bowel sounds and non-tender Palpation: soft Narrative: exam performed in the presence of female nurse (Pepper-charge nurse). The right labia demonstrates mild swelling on the outside of the mid labia is an area of more swelling that is circular in nature more consistent with an abscess. There is a singular hair follicle coming from the area. Using bedside ultrasound I see a fluid collection approximately half centimeter below the skin surface Without vascularity. Back/Spine no CVA tenderness and normal ROM Extremity normal to inspection General Extremety ED: Negative for edema General Extremity: Negative for edema Neuro oriented x3 and CN's II-XII intact bilaterally Sensorium / Orientation: alert Motor Exam: strength 5/5 throughout Psych mental status grossly normal Mood & Affect: Negative for depressed or tearful Skin no wounds Skin Narrative: Medial posterior right thigh demonstrates about 8 cm ovoid area of erythema. I do not appreciate any fluctuance induration or significant swelling. MDM MDM MDM Narrative Medical decision making narrative: Differential diagnosis includes but not limited to cutaneous abscess cellulitis Bartholin's gland abscess Belen's gangrene Using bedside ultrasound identify a fluid collection with debris consistent with an abscess. Let was applied to the outside of the labia. After adequate time 1% lidocaine was instilled into the area as well as into the tissue. A incision was made with an 11 blade. A moderate amount of pus was obtained and culture obtained/sent. Wound was irrigated. Quarter inch iodoform packing was placed. Patient will be started on Augmentin (due to Keflex allergies) as well as Bactrim to cover for MRSA. Patient is advised that the packing needs to be removed in 3 days. She may return here for wound check and packing removal or gynecology. If patient is worsening she needs to return to emergency. History & Record Review Discussion w/independent historian: Patient Discharge Plan Triage Chief Complaint: Abscess ED Provider: Norbert Holt Dx/Rx/DC Orders Clinical Impression: Cellulitis, Abscess of labia Instructions: ED Abscess Incision And Drainage, ED Cellulitis Prescriptions: New amoxicillin-pot clavulanate 875-125 mg tablet 1 tab PO BID Qty: 14 0RF sulfamethoxazole-trimethoprim 800-160 mg tablet 1 tab PO BID Qty: 14 0RF oxycodone-acetaminophen 5-325 mg tablet 1 tab PO Q6H PRN PRN (Reason: Pain) 3 Days Qty: 12 0RF No Action multivit with min-folic acid [Adult Multivitamin Gummies] 200 mcg tablet,chewable 1 tab PO DAILY acyclovir 200 mg capsule 200 mg PO TID PRN (Reason: HSV) pantoprazole 40 mg tablet,delayed release (DR/EC) 40 mg PO QDAY Qty: 90 1RF Rx Instructions: take on an empty stomach once daily naproxen sodium [Aleve] 220 mg capsule 220 mg PO QDAY PRN (Reason: pain) albuterol sulfate 90 mcg/actuation HFA aerosol inhaler 2 puff inhalation Q4H PRN PRN (Reason: wheezing) (DME) breast pump [Easy Feed Electric Breast Pump] Device See Rx Instructions .Route Qty: 1 0RF Rx Instructions: As directed ondansetron 8 mg tablet,disintegrating 8 mg PO Q8H PRN (Reason: nausea and vomiting) Qty: 10 0RF Primary Care Provider: Robert Friend Referrals: Robert Friend MD [Primary Care Provider] - Liliana Newell MD [Med Staff - Active Staff] - (in 3 days for packing removal and wound check) Print Language: Montenegrin Disposition Disposition: Home, Self Care
[2025-01-25] MEDS: Lidocaine 1% (20 ml mdv) 20 ML Vial INFILT (10:35)
[2025-01-25] MEDS: Lidocaine/Epi/Tetracaine 50 ML 1 APPLIC TOPICAL (10:40)
[2025-01-25 11:18] VITALS: BP 128/81; PULSE 71; RESP 16; O2SAT 99
[2025-01-25 11:23] VITALS: BP 128/81; PULSE 71; RESP 16; TEMP 36.6; O2SAT 99
== END 2025-01-25 11:27 | disposition home or self-care (01) ==
PROVIDERS: Emergency Provider Emergency Medicine; PCP Family Medicine; Visit Provider Emergency Medicine
DX: N76.4 Abscess of vulva (principal); Z87.891 Personal history of nicotine dependence; Z99.89 Dependence on other enabling machines and devices; Z87.19 Personal history of other diseases of the digestive system; K21.9 Gastro-esophageal reflux disease without esophagitis
CPT/HCPCS: 10060; 87070; 87077; 87186; 87205; 99282

== ENCOUNTER 2025-01-28 15:06 | Inpatient (IN) | payer OTHER, SELFPAY ==
[2025-01-28 15:07] VITALS: BP 164/82; PULSE 98; RESP 16; TEMP 37.1; O2SAT 99; BMI 39.4
--- NOTE | 2025-01-28 16:17 | EDS_ITS ---
HPI History of Present Illness Chief Complaint: Abscess Detail of Chief Complaint: Labial abscess Informant: patient Narrative Narrative: Patient presents to the emergency department with complaint of a labial abscess. She was seen in the emergency department 3 days ago and had incision and drainage of that abscess and started on amoxicillin and Bactrim. Now having increased redness and swelling into the suprapubic region and now has a right proximal posterior thigh developing abscess as well. She was seen in follow-up by POWER SHOVEL OPERATOR Dr. Liliana Newell who referred patient back to the emergency department for imaging and admission and definitive care either by herself or possible plastics consultation. Patient denies fevers or chills or sweats. [facility] Medical History MRSA (methicillin resistant staph aureus) culture positive Dietary restriction Genital herpes affecting HPV (human papilloma virus) infection Prolonged rupture of membranes, delivered macrosomia depression Gestational HTN Hx of endometriosis Retroverted uterus Fallopian tube disorder History of echocardiogram Loss of hearing Cancer History of steroid therapy Fatty liver Chiari malformation History of hiatal hernia History of diverticulitis Gastric reflux Former smoker BiPAP (biphasic positive airway pressure) dependence History of in vitro fertilization History of loss Sleep apnea Irregular esophago-gastric mucosal junction Diverticula of intestine Asthma Fatigue Stomach ulcer SOB (shortness of breath) Cancer Home Medications ?Medication ?Instructions ?Recorded ?Last Taken ?Type multivitamin with minerals-folic 1 tab PO DAILY 01/20/25 History acid 200 mcg chewable tablet (Adult Multivitamin Gummies) acyclovir 200 mg capsule 200 mg PO TID PRN HSV Unknown History pantoprazole 40 mg tablet,delayed 40 mg PO QDAY #90 ta bs 10/02/24 01/21/25 Rx release naproxen sodium 220 mg capsule 220 mg PO QDAY PRN pain 10/23/24 Unknown History (Aleve) albuterol sulfate 90 mcg/actuation 2 puff inhalation Q 4H PRN PRN 01/21/25 01/16/25 History aerosol inhaler wheezing amoxicillin 875 mg-potassium 1 tab PO BID #14 tabs Unknown Rx clavulanate 125 mg tablet sulfamethoxazole 800 1 tab PO BID #14 TABLETS Unknown Rx mg-trimethoprim 160 mg tablet Allergy/AdvReac Type Severity Reaction Status Date / Time erythromycin base Allergy Mild Rash Verified 01/28/25 15:07 cephalexin (From Keflex) Allergy Hives Verified 01/28/25 15:07 tree nut Allergy Anaphylaxis Verified 01/28/25 15:07 venom-honey bee Allergy Anaphylaxis Verified 01/28/25 15:07 meperidine HCl (From Demerol) AdvReac Unknown Verified 01/28/25 15:07 Family History Father Sleep apnea Mother Cancer skin cancer Grandmother Cancer uterine Breast cancer, Onset Age: 60 Maternal Aunt Breast cancer, Onset Age: 60 Maternal Surgical History H/O vein stripping H/O dilation and curettage H/O bilateral salpingectomy H/O laparoscopy Hx of colonoscopy History of esophagogastroduodenoscopy (EGD) Status post dilation of esophageal narrowing History of myringotomy Hx of tonsillectomy Hx of umbilical hernia repair Hx of section History of D&C Tubal reversal surgical follow up Encounter for tubal ligation Social History adopted: No household members: spouse and children housing: house number of children: 3 current occupational status: employed current occupation: [employer] ([employer]) current occupational exposures/hazards: No pets and animals: Yes pets and animals: dog(s) history of recent travel: Yes ([place]) out of state: Yes out of country: No sexually active: Yes Smoking Status: Former smoker Tobacco: How many years used: 13 second hand exposure: Yes alcohol intake: former details: pre rare substance use type: does not use well-balanced diet: about half the time caffeine: No eating out: 1-3 times/week during the past year weight has: remained stable what type of physical activity do you participate in: none xavier/rastafarian: Other seatbelt use: always do you feel safe at home: Yes additional social history: 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 hicks at [employer] ROS ROS ED Review of Systems ROS Unobtainable: other Constitutional Constitutional ED: Reports lethargy; Denies chills, fever(s), sweats or weight loss Eyes Eyes: Denies blurry vision, change in vision or diplopia ENT ENT ED: Denies rhinorrhea or sore throat Cardiovascular Cardiovascular: Denies chest pain, orthopnea or racing heartbeat Respiratory/Chest Respiratory/Chest: Denies cough, dyspnea, dyspnea on exertion, orthopnea or sputum Gastrointestinal Gastrointestinal: Denies abdominal pain, diarrhea, nausea or vomiting Genitourinary Genitourinary ED: Reports other Details: Labial abscess ; Denies dysuria, hematuria or urinary frequency Musculoskeletal Musculoskeletal: Denies arthralgias, back pain, myalgias or neck pain Integumentary Reports other Details: Right posterior thigh abscess ; Denies abscess, Abrasions or rash Neurologic Neurologic: Denies headache(s) or weakness Psychiatric Psychiatric: Denies anxiety, depression or suicidal thoughts Endocrine Endocrinology: Denies polydipsia, polyphagia or polyuria Hematologic/Lymphatic Hematologic/Lymphatic: Denies easy bleeding, easy bruising or lymphadenopathy Allergic/Immunologic Allergic/Immunologic ED: Denies mouth swelling, tongue swelling or urticaria EXAM Physical Exam Const Vital Signs: 01/28/25 15:07 01/28/25 17:07 Temperature 98.7 F Temperature Source Oral Pulse Rate 98 70 Respiratory Rate 16 15 Blood Pressure 164/82 H 141/72 H Blood Pressure Mean 109 95 Pulse Ox 99 99 Oxygen Delivery Method Room Air Room Air Positive well nourished and well developed General Appearance ED: well developed and NAD HEENT Reports TM's clear and moist mucous membranes normocephalic and atraumatic; Negative for trauma or tenderness Tympanic Membrane ED: Yes TM's clear Eyes PERRL and EOMs intact bilaterally General Eye ED: Negative for pale conjunctiva or scleral icterus Neck no lymphadenopathy, supple and no JVD General: Negative for tenderness Chest Wall inspection of chest normal and palpation of chest normal Chest: Negative for tenderness Resp normal respiratory effort and clear to auscultation bilaterally Effort and Inspection: Negative for respiratory distress or pain with movement Auscultation: Negative for rhonchi, wheezes or diminished lung sounds Cardio regular rate, regular rhythm, S1 normal heart sound, S2 normal heart sound and no murmurs Peripheral Pulses: pulses 2+ throughout GI normal to inspection, nondistended, normoactive bowel sounds, soft to palpation, non-tender, non-distended and no masses Narrative: -patient has erythema to the right labia and firmness and induration into the right suprapubic region. Cellulitic changes noted. Back/Spine no CVA tenderness and no thoracic nor lumbar tenderness Extremity Extremity Narrative: Right thigh-patient has soft tissue swelling and induration involving the posterior right thigh with cellulitic changes. Central fluctuance area measures approximately 4 x 5 cm General Extremety ED: Negative for edema General Extremity: Negative for edema Neuro oriented x3, CN's II-XII intact bilaterally, no sensory deficits noted and gait normal Sensorium / Orientation: awake, alert, oriented to person, oriented to place and oriented to time Motor Exam: strength 5/5 throughout and strength abnormal Psych mental status grossly normal Skin no rashes or lesions noted and no wounds MDM MDM MDM Narrative Medical decision making narrative: Patient presents with abscess to her right labia that was drained in the ER 3 days ago. Worsening symptoms. Sent in by her POWER SHOVEL OPERATOR for imaging. IV line established. CBC with differential count of 9.3 with hemoglobin 11 platelet cou nt of 262. Chemistries unremarkable. Patient had a CT scan of the pelvis with IV contrast ordered and results of which are currently pending. Dr. Liliana Newell presented to the emergency department to evaluate patient for admission. Lab Data Attestation: I reviewed the patient's lab results. Labs: Laboratory Results - last 24 hr 01/28/25 16:35 WBC 9.3 RBC 3.95 L Hgb 11.1 L Hct 34.0 L MCV 86.1 MCH 28.1 MCHC 32.6 RDW Std Deviation 42.5 RDW Coeff of Noe 13.5 Plt Count 262 MPV 9.7 Immature Gran % (Auto) 0.200 Neut % (Auto) 60.7 Lymph % (Auto) 26.8 [place] % (Auto) 9.4 Eos % (Auto) 2.7 Baso % (Auto) 0.2 Absolute Neuts (auto) 5.6 Absolute Lymphs (auto) 2.48 Nucleated RBC % 0 Sodium 137 Potassium 3.8 Chloride 103 Carbon Dioxide 23.8 Anion Gap 10 BUN 10 Creatinine 0.89 Estim Creat Clear Calc 114.67 Est GFR (MDRD) Non-Af 82 BUN/Creatinine Ratio 11.5 Glucose 89 Calcium 9.0 Discharge Plan Triage Chief Complaint: Abscess ED Provider: Bryon Luis Dx/Rx/DC Orders Clinical Impression: Abscess of labia, Cellulitis, Abscess of right thigh Prescriptions: No Action multivit with min-folic acid [Adult Multivitamin Gummies] 200 mcg tablet,chewable 1 tab PO DAILY acyclovir 200 mg capsule 200 mg PO TID PRN (Reason: HSV) pantoprazole 40 mg tablet,delayed release (DR/EC) 40 mg PO QDAY Qty: 90 1RF Rx Instructions: take on an empty stomach once daily naproxen sodium [Aleve] 220 mg capsule 220 mg PO QDAY PRN (Reason: pain) albuterol sulfate 90 mcg/actuation HFA aerosol inhaler 2 puff inhalation Q4H PRN PRN (Reason: wheezing) amoxicillin-pot clavulanate 875-125 mg tablet 1 tab PO BID Qty: 14 0RF sulfamethoxazole-trimethoprim 800-160 mg tablet 1 tab PO BID Qty: 14 0RF Primary Care Provider: Robert Friend Referrals: Robert Friend MD [Primary Care Provider] - Print Language: Mohawk Disposition Disposition: Acute Care Hospital [facility]
[2025-01-28] MEDS: Piperacil/Tazobactam 4.5 GM in 0.9% Normal Saline (100mL MB+) 100 ML IV (16:44)
[2025-01-28 16:48] LABS: Absolute Lymphocyte Count 2.48 X10^3/uL (0.83-4.51); Absolute Neutrophil Count 5.6 X10^3/uL (2.0-7.7); Basophil# 0.02 X10^3/uL; Basophil% 0.2 % (0-1); Eosinophil# 0.25 X10^3/uL; Eosinophils% 2.7 % (0-5); Hemoglobin 11.1 g/dL (12.0-15.0); Lymphocyte # 2.48 X10^3/ul (0.83-4.51); Lymphocyte % 26.8 % (19-41); Mean Corp Hgb Conc 32.6 g/dL (32-36); Mean Corpuscular Hgb 28.1 pg (27.0-32.0); Mean Corpuscular Volume 86.1 fL (81-99); Mean Platelet Vol. 9.7 fl (6.2-12.0); Monocyte# 0.87 X10^3/uL; Monocyte% 9.4 % (0-10); NRBC Flagged by Analyzer 0 % (0-5); Neutrophil # 5.63 X10^3/uL (2.7-7.7); Neutrophil % 60.7 % (47-70); Platelet Count 262 K/mm3 (150-450); RBC Distribution Width CV 13.5 % (11.6-14.6); RBC Distribution Width SD 42.5 fl (35.1-43.9); Red Blood Count 3.95 M/mm3 (4.2-5.4); White Blood Count 9.3 K/mm3 (4.4-11.0)
[2025-01-28 17:07] VITALS: BP 141/72; PULSE 70; RESP 15; O2SAT 99
[2025-01-28 17:10] LABS: Anion Gap 10 (5-15); BUN 10 mg/dL (4-19); BUN/Creat Ratio 11.5 RATIO (10-20); Carbon Dioxide 23.8 mmol/L (21.0-32.0); Chloride 103 mmol/L (98-108); Creatinine, Serum 0.89 mg/dL (0.70-1.20); EST Glomerular Filtration Rate 82 (>60); Estimated Creatinine Clearance 114.67 ml/min (50-250); Glucose 89 mg/dL (70-99); Potassium 3.8 mmol/L (3.3-5.1); Sodium Level 137 mmol/L (133-145)
--- NOTE | 2025-01-28 17:22 | CT_ITS ---
PROCEDURE: PELVIS WITH IV CONTRAST REASON FOR EXAM: RIGHT LABIAL/ PROXIMAL THIGH ABSCESS . TECHNIQUE: PELVIS WITH IV CONTRAST CONTRAST: Isovue 370 VOLUME: 98 mL One or more dose reduction techniques were used (e.g., Automated exposure control, adjustment of the mA and/or kV according to patient size, use of iterative reconstruction technique). RADIATION DOSE SUMMARY: CTDlvol: 27.80 mGy DLP: 1682.97 mGycm COMPARISON: None. FINDINGS: Right labial fat stranding without a visualized drainable collection which may represent phlegmonous. The reproductive organs are unremarkable. Colonic diverticulosis of the partially visualized bowel. The urinary bladder is unremarkable. No acute osseous abnormalities. CT/Pelvis WITH IV Contrast IMPRESSION: Right labial phlegmonous changes without a visualized drainable collection. Reading Location: [place] [id number]
[2025-01-28] MEDS: Vancomycin HCl 1,750 MG in 0.9% Normal Saline (500mL Bag) 500 ML 250 MG IV (17:55)
[2025-01-28 18:07] VITALS: BP 141/72; PULSE 70; RESP 15; TEMP 37.2; O2SAT 99
--- NOTE | 2025-01-28 18:17 | HP.PCM.OB_ITS ---
HPI - General General Date of Admission: 01/28/25 HPI Narrative PRISCILA CARPENTER, is a 44 F who presents with 3 day history of vulvar abscess s/p drainage and started on bishnu antibiotics from the ER. she has had worsening of the symptoms with swelling in the right labia and a new leison on the right thigh, both areas are spontaneously draining now pustular fluid. she denies any fevers or CP, SOB. she has been taking augmentin and bactrim, culture showed MRSA. [facility] Medical History MRSA (methicillin resistant staph aureus) culture positive Dietary restriction Genital herpes affecting HPV (human papilloma virus) infection Prolonged rupture of membranes, delivered macrosomia depression Gestational HTN Hx of endometriosis Retroverted uterus Fallopian tube disorder History of echocardiogram Loss of hearing Cancer History of steroid therapy Fatty liver Chiari malformation History of hiatal hernia History of diverticulitis Gastric reflux Former smoker BiPAP (biphasic positive airway pressure) dependence History of in vitro fertilization History of loss Sleep apnea Irregular esophago-gastric mucosal junction Diverticula of intestine Asthma Fatigue Stomach ulcer SOB (shortness of breath) Cancer Home Medications ?Medication ?Instructions ?Recorded ?Last Taken ?Type multivitamin with minerals-folic 1 tab PO DAILY 01/20/25 History acid 200 mcg chewable tablet (Adult Multivitamin Gummies) acyclovir 200 mg capsule 200 mg PO TID PRN HSV Unknown History pantoprazole 40 mg tablet,delayed 40 mg PO QDAY #90 ta bs 10/02/24 01/21/25 Rx release naproxen sodium 220 mg capsule 220 mg PO QDAY PRN pain 10/23/24 Unknown History (Aleve) albuterol sulfate 90 mcg/actuation 2 puff inhalation Q 4H PRN PRN 01/21/25 01/16/25 History aerosol inhaler wheezing amoxicillin 875 mg-potassium 1 tab PO BID #14 tabs Unknown Rx clavulanate 125 mg tablet sulfamethoxazole 800 1 tab PO BID #14 TABLETS Unknown Rx mg-trimethoprim 160 mg tablet Allergy/AdvReac Type Severity Reaction Status Date / Time erythromycin base Allergy Mild Rash Verified 01/28/25 15:07 cephalexin (From Keflex) Allergy Hives Verified 01/28/25 15:07 tree nut Allergy Anaphylaxis Verified 01/28/25 15:07 venom-honey bee Allergy Anaphylaxis Verified 01/28/25 15:07 meperidine HCl (From Demerol) AdvReac Unknown Verified 01/28/25 15:07 Family History Father Sleep apnea Mother Cancer skin cancer Grandmother Cancer uterine Breast cancer, Onset Age: 60 Maternal Aunt Breast cancer, Onset Age: 60 Maternal Surgical History H/O vein stripping H/O dilation and curettage H/O bilateral salpingectomy H/O laparoscopy Hx of colonoscopy History of esophagogastroduodenoscopy (EGD) Status post dilation of esophageal narrowing History of myringotomy Hx of tonsillectomy Hx of umbilical hernia repair Hx of section History of D&C Tubal reversal surgical follow up Encounter for tubal ligation Social History adopted: No household members: spouse and children housing: house number of children: 3 current occupational status: employed current occupation: [employer] current occupational exposures/hazards: No pets and animals: Yes pets and animals: dog(s) history of recent travel: Yes ([place]) out of state: Yes out of country: No sexually active: Yes Smoking Status: Former smoker Tobacco: How many years used: 13 second hand exposure: Yes alcohol intake: former details: pre rare substance use type: does not use well-balanced diet: about half the time caffeine: No eating out: 1-3 times/week during the past year weight has: remained stable what type of physical activity do you participate in: none xavier/church: Other seatbelt use: always do you feel safe at home: Yes 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 Date Name GA/Weeks Outcome Route Bth Weight Gen Labor Lgth Anesthesia Del Locatn Provider FOB Unknown Lidia 2004 39 live - full term Female spinal [facility]erie O[facility] Unknown Lisa 2005 39 live - full term Female spinal [facility] Unknown Joseph 2001 39 live - full term Female spinal [facility]erie OBG[facility] Unknown 2019 Verity 14 spontaneous 03/01/23 [place] live - full term 8lbs 2oz Female spinal [facility] Delivery Date: Last Updated by: Seda Argueta MD nuchal cord single, PreE, for chorioamnionitis Delivery Date: Last Updated by: Meg Pedraza c/s double nuchal cord, short cord Delivery Date: Last Updated by: Meg Pedraza fever, emergency c/s ROS Constitutional Constitutional: Reports systems reviewed and no addt'l complaints, except as documented; Denies as per HPI, change in weight, fatigue, fever(s), malaise, weakness or other Eyes Eyes: Reports systems reviewed and no addt'l complaints, except as documented; Denies as per HPI, change in vision or other ENT HEENT: Reports systems reviewed and no addt'l complaints, except as documented Respiratory/Chest Respiratory/Chest: Reports systems reviewed and no addt'l complaints, except as documented Gastrointestinal Gastrointestinal: Reports systems reviewed and no addt'l complaints, except as documented and as per HPI Genitourinary Genitourinary: Reports as per HPI Musculoskeletal Musculoskeletal: Reports systems reviewed and no addt'l complaints, except as documented Neurologic Neurologic: Reports systems reviewed and no addt'l complaints, except as docum ented Psychiatric Psychiatric: Reports systems reviewed and no addt'l complaints, except as documented Endocrine Endocrinology: Reports systems reviewed and no addt'l complaints, except as documented Hematologic/Lymphatic Hematologic/Lymphatic: Reports systems reviewed and no addt'l complaints, except as documented Vital Signs Vital Signs Vital Signs: 01/28/25 15:07 01/28/25 17:07 01/28/25 18:07 Temperature 98.7 F 98.9 F Temperature Source Oral Pulse Rate 98 70 70 Respiratory Rate 16 15 15 Blood Pressure 164/82 H 141/72 H 141/72 H Blood Pressure Mean 109 95 95 Pulse Ox 99 99 99 Oxygen Delivery Method Room Air Room Air Weight Weight: 275 lb Body Mass Index (BMI) 39.4 Physical Exam Const alert, oriented x3 and no apparent distress HEENT normocephalic Head and Scalp: atraumatic Eyes EOMs intact bilaterally and conjunctivae normal Neck full ROM, no lymphadenopathy, supple and thyroid normal General: trachea midline Lymph Lymphatic: no lymphadenopathy noted Resp normal respiratory effort, no retractions, no use of accessory muscles and clear to auscultation bilaterally Cardio regular rhythm GI soft to palpation, non-tender, non-distended and no masses Inspection: Negative for abdominal distention Narrative: right thigh erythema and induration, drainage with fluctuant area released in center, right labia tender and indurated, thickened. drainage through incision from ER physician present and pustular fluid releasing with expression, no clear fluid pocket palpated in the area. Back/Spine no CVA tenderness Extremity normal to inspection Skin no rashes or lesions noted Neuro moves all extremities and deep tendon reflexes 2+ bilaterally Psych mental status grossly normal Labs Labs Labs: Blood Type O POSITIVE Antibody Screen NEGATIVE Hct 34.0 % (37-47) L Hgb 11.1 g/dL (12.0-15.0) L Obstetrics Ultrasound Syphilis Total Ab Non-reactive Rubella IgG Antibody Reactive (Nonreactive) Hep Bs Antigen Non-Reactive (Nonreactive) Hepatitis C Antibody Non-Reactive (Nonreactive) Chlamydia DNA (EDMUND) Negative (Negative) N.gonorrhoeae DNA (EDMUND) Negative (Negative) HIV 1&2 Antibody Non-Reactive (Nonreactive) Glucose 1 Hr 50 gm 139 mg/dL (70-140) Gest Glucose Tolerance MG/DL Assessment & Plan (1) Abscess of right thigh: (2) Cellulitis: (3) Abscess of labia: PLAN: Plan admit for IV antibiotics and monitoring, if no improvement recommend surgical i and d, debridement. zosyn and vacn ordered. Charges/Coding Visit Charges Inpatient E&M: 58057 Init Hosp L3
[2025-01-28 18:44] VITALS: BMI 39.2
--- NOTE | 2025-01-28 18:57 | PCM.RX.CS ---
Consult Antibiotic Management Pharmacy has been consulted to manage selected antibiotic: Vancomycin Type of Intervention Type of Consult: New start Suspected Infection Suspected Infection: Skin/Soft tissue Labs Labs: Sodium 137 mmol/L (133-145) 01/28/25 16:35 Potassium 3.8 mmol/L (3.3-5.1) 01/28/25 16:35 Chloride 103 mmol/L (98-108) 01/28/25 16:35 Carbon Dioxide 23.8 mmol/L (21.0-32.0) 01/28/25 16:35 Anion Gap 10 (5-15) 01/28/25 16:35 BUN 10 mg/dL (4-19) 01/28/25 16:35 Creatinine 0.89 mg/dL (0.70-1.20) 01/28/25 16:35 Est GFR (MDRD) Non-Af 82 (>60) 01/28/25 16:35 BUN/Creatinine Ratio 11.5 RATIO (10-20) 01/28/25 16:35 Glucose 89 mg/dL (70-99) 01/28/25 16:35 Estimated Creatinine Clearance Estimated Creatinine Clearance: > 100 Goal Trough Goal Trough: 15-20 mcg/mL Pharmacy Plan for Drug Dosing Pharmacy Plan for Drug Dosing: NEW START IV VANCOMYCIN Consulting Physician: Dr. Newell Indication: cellulitis Goal Trough: 15-20 SrCr: 0.89 CrCl > 100 Comments: Received 1750mg x1 dose in ED @ 17:55 01/28/25 Vancomycin Dose: 1500mg Q8H to start @ 02:00 01/29/25 Pending Level: 01/29/25 @ 17:30 Pharmacy Service will continue to monitor and adjust dosing as required. Follow-Up Labs Follow-Up Labs: Trough: Vancomycin (01/29/25 @ 17:30)
[2025-01-28] MEDS: KCL 20MEQ in D5.45NS 20 MEQ/1,000 ML IV.SOLN. 150 MEQ IV (19:58)
[2025-01-28] MEDS: FLUCONAZOLE 150 MG TABLET PO (19:58)
[2025-01-28] MEDS: Ibuprofen 400 MG Tablet PO (19:58)
[2025-01-28] MEDS: DiphenhydrAMINE 50 MG/ML Syringe IV (21:27)
[2025-01-28] MEDS: Piperacil/Tazobactam 3.375 GM in 0.9% Normal Saline (50mL MB+) 50 ML IV (21:27)
[2025-01-29] MEDS: Vancomycin HCl 1,500 MG in 0.9% Normal Saline (500mL Bag) 500 ML 250 MG IV ×3 (02:07→19:41)
--- NOTE | 2025-01-29 03:49 | EKG12_ITS ---
Test Reason : AM EKG Blood Pressure : */* mmHG Vent. Rate : 57 BPM Atrial Rate : 57 BPM P-R Int : 156 ms QRS Dur : 94 ms QT Int : 440 ms P-R-T Axes : 38 30 35 degrees QTcB Int : 428 ms Sinus bradycardia Otherwise normal ECG No previous ECGs available Confirmed by TONY PEARSON MD ([id number]), video news editor LAXMI PHELAN ([id number]) on 01/30/2025 7:05:30 AM Referred By: JOESPH Confirmed By: TONY PEARSON MD
[2025-01-29] MEDS: KCL 20MEQ in D5.45NS 20 MEQ/1,000 ML IV.SOLN. 150 MEQ IV (05:03)
[2025-01-29] MEDS: Piperacil/Tazobactam 3.375 GM in 0.9% Normal Saline (50mL MB+) 50 ML IV ×3 (05:04→22:50)
[2025-01-29 05:08] LABS: Absolute Lymphocyte Count 1.51 X10^3/uL (0.83-4.51); Absolute Neutrophil Count 3.6 X10^3/uL (2.0-7.7); Eosinophil# 0.17 X10^3/uL; Hematocrit 31.9 % (37-47); Hemoglobin 10.3 g/dL (12.0-15.0); Lymphocyte # 1.51 X10^3/ul (0.83-4.51); Lymphocyte % 26.4 % (19-41); Mean Corp Hgb Conc 32.3 g/dL (32-36); Mean Corpuscular Hgb 27.6 pg (27.0-32.0); Mean Corpuscular Volume 85.5 fL (81-99); Mean Platelet Vol. 9.5 fl (6.2-12.0); Monocyte# 0.45 X10^3/uL; Monocyte% 7.9 % (0-10); NRBC Flagged by Analyzer 0 % (0-5); Neutrophil # 3.57 X10^3/uL (2.7-7.7); Neutrophil % 62.4 % (47-70); Platelet Count 228 K/mm3 (150-450); RBC Distribution Width CV 13.5 % (11.6-14.6); RBC Distribution Width SD 42.5 fl (35.1-43.9); Red Blood Count 3.73 M/mm3 (4.2-5.4); White Blood Count 5.7 K/mm3 (4.4-11.0)
--- NOTE | 2025-01-29 07:30 | PCM.PN.OB ---
Subjective Subjective feeling better, less swelling and drainage less form leg. afebrile. tolerating po. white count decreasing Objective Data Objective Data Vital Signs: Vital Signs Temp Pulse Resp BP Pulse Ox O2 Del Method 98.9 F 70 15 141/72 H 99 Room Air 01/28/25 18:07 01/28/25 18:07 01/28/25 18:07 01/28/25 18:07 01/28/25 18:07 01/28/25 17:07 Oxygen Delivery Method Room Air Weight: 265 lb 6.985 oz Body Mass Index (BMI) 39.2 Intake & Output: Intake and Output for Last 24 Hours 01/27/25 01/28/25 01/29/25 23:59 23:59 23:59 Intake Total 635 / 635 1979 Balance 635 / 635 1979 Lab / Micro Data 01/29/25 04:47 01/28/25 16:35 Labs: Laboratory Results - last 24 hr 01/28/25 16:35: WBC 9.3, RBC 3.95 L, Hgb 11.1 L, Hct 34.0 L, MCV 86.1, MCH 28.1, MCHC 32.6, RDW Std Deviation 42.5, RDW Coeff of Noe 13.5, Plt Count 262, MPV 9.7, Immature Gran % (Auto) 0.200, Neut % (Auto) 60.7, Lymph % (Auto) 26.8, Nelson % (Auto) 9.4, Eos % (Auto) 2.7, Baso % (Auto) 0.2, Absolute Neuts (auto) 5.6, Absolute Lymphs (auto) 2.48, Nucleated RBC % 0, Sodium 137, Potassium 3.8, Chloride 103, Carbon Dioxide 23.8, Anion Gap 10, BUN 10, Creatinine 0.89, Estim Creat Clear Calc 114.67, Est GFR (MDRD) Non-Af 82, BUN/Creatinine Ratio 11.5, Glucose 89, Calcium 9.0 01/29/25 04:47: WBC 5.7, RBC 3.73 L, Hgb 10.3 L, Hct 31.9 L, MCV 85.5, MCH 27.6, MCHC 32.3, RDW Std Deviation 42.5, RDW Coeff of Noe 13.5, Plt Count 228, MPV 9.5, Immature Gran % (Auto) 0.300, Neut % (Auto) 62.4, Lymph % (Auto) 26.4, Nelson % (Auto) 7.9, Eos % (Auto) 3.0, Baso % (Auto) 0.0, Absolute Neuts (auto) 3.6, Absolute Lymphs (auto) 1.51, Nucleated RBC % 0 Radiography Diagnostic Testing: Radiology Impression Pelvis CT 01/28/25 17:22 IMPRESSION: Right labial phlegmonous changes without a visualized drainable collection. Reading Location: [address] Constitutional Constitutional: Reports systems reviewed and no addt'l complaints, except as documented Cardiovascular Cardiovascular: Reports systems reviewed and no addt'l complaints, except as documented Respiratory/Chest Respiratory/Chest: Reports systems reviewed and no addt'l complaints, except as documented Gastrointestinal Gastrointestinal: Reports systems reviewed and no addt'l complaints, except as documented Physical Exam Const alert, oriented x3 and no apparent distress HEENT Head and Scalp: atraumatic Resp normal respiratory effort GI soft to palpation and non-tender Narrative: less drainag and more clear from leg, right vulva less induration and smaller area but still firm, drainage continuing Assessment & Plan (1) Abscess of right thigh: (2) Cellulitis: (3) Abscess of labia: PLAN: Plan admit for IV antibiotics and monitoring, zosyn and vacn ordered. [facility] consulted and helping with packing and dressing cahnges. continue IV antibiotics until tomorrow and then swithc to oral
[2025-01-29 08:00] VITALS: BP 129/84; PULSE 69; RESP 15; TEMP 36.7; O2SAT 100
[2025-01-29] MEDS: HYDROmorphone 1 MG/ML Syringe IV (08:33)
[2025-01-29] MEDS: 0.9% Saline Lock 10 ML Syringe IV ×2 (08:33→19:41)
[2025-01-29] MEDS: Pantoprazole Sodium 40 MG Tablet PO (08:34)
[2025-01-29 09:05] LABS: Internal QC Validated? YES +Cl - CLEAR BKGD; Pregnancy, Urine Negative Negative
--- NOTE | 2025-01-29 09:07 | WOUNDNOTE ---
In to see patient with Dr Newell this am. there is some induration noted to the right inner thigh and the right vulvar region. small amount of purulence from the right vulva and more of a clear barragan drainage noted from the thigh. pt was medicated with IV pain medication. this nurse attempted to try to get some packing in to keep area open to drain. the opening is not large enough to get the packing to stay in place. will monitor. may need to open areas slightly to keep draining. will talk with SALAZAR Sutton. according to Dr Newell, both areas appear to be improving.
--- NOTE | 2025-01-29 12:12 | CASEMGMT ---
SALAZAR ARELLANO Assessment Face to Face with patient for initial transition planning/care coordination assessment. SALAZAR ARELLANO introduced self and role at [facility], pt voices understanding. Pt is A&Ox4 and is resting comfortably in bed and is calm. Care providers, pharmacy, and demographics verified. Admitting dx: right Labial Abscess with Cellulitis LACE Strata: 2 PCP: Robert Friend Specialists: Friend (GI), [facility] (OB-INTERCEPTOR OPERATOR) Preferred Pharmacy: [facility] Insurance: [facility] Prescription Benefit: Yes LNOK: Benny (H) Living Arrangements: Pt lives in a single story home with her and 3 out of her 4 children (Ages 2, 18, and 20). ADLs/IADLs: Indep Transportation: Self, DME: Pt reports that she has a BiPAP at home but no additional oxygen HHC/SNF: Denies Pt?s goal: Home Plan: Home, follow for wound care needs. At this time, the pt states that she feels safe returning home with her once medically ready. Pt states that she feels comfortable caring for her wound at home with the help of her . Pt was educated about the [facility] if warranted. Pt states understanding. Pt denies further questions or concerns at this time. Report given to LAURA LINCOLN CM. Nacho Wilson RN, CM
[2025-01-29 14:00] VITALS: BP 123/67; PULSE 70; RESP 14; TEMP 36.6; O2SAT 100
[2025-01-29 17:22] LABS: Vancomycin, Trough Level 19.1 ug/mL (5.0-15.0)
[2025-01-29] MEDS: Ibuprofen 400 MG Tablet PO (18:17)
[2025-01-29] MEDS: Vancomycin Trough/Random Due 1 LAB MC (18:32)
[2025-01-29 19:43] VITALS: BP 134/68; PULSE 76; RESP 18; TEMP 36.9; O2SAT 99
--- NOTE | 2025-01-29 19:51 | PCM.RX.CS ---
Consult Antibiotic Management Pharmacy has been consulted to manage selected antibiotic: Vancomycin Type of Intervention Type of Consult: Follow-up Prior Doses of Antibiotics Prior Doses of Antibiotics Received/Current Regimen: currently on 1500mg IV q8h Labs Labs: Sodium 137 mmol/L (133-145) 01/28/25 16:35 Potassium 3.8 mmol/L (3.3-5.1) 01/28/25 16:35 Chloride 103 mmol/L (98-108) 01/28/25 16:35 Carbon Dioxide 23.8 mmol/L (21.0-32.0) 01/28/25 16:35 Anion Gap 10 (5-15) 01/28/25 16:35 BUN 10 mg/dL (4-19) 01/28/25 16:35 Creatinine 0.89 mg/dL (0.70-1.20) 01/28/25 16:35 Est GFR (MDRD) Non-Af 82 (>60) 01/28/25 16:35 BUN/Creatinine Ratio 11.5 RATIO (10-20) 01/28/25 16:35 Glucose 89 mg/dL (70-99) 01/28/25 16:35 Vancomycin Trough 19.1 ug/mL (5.0-15.0) H 01/29/25 16:29 Dosing Weight Weight used for dosin.4 kg Estimated Creatinine Clearance Estimated Creatinine Clearance: >100ml/min Goal Trough Goal Trough: 15-20 mcg/mL Pharmacy Plan for Drug Dosing Pharmacy Plan for Drug Dosing: VANCOMYCIN LEVEL RECEIVED Current Vancomycin Dose: 1500MG Q8H Number of Doses Received: 1750MG X1, 1500MG X2 Vancomycin Level: 19.1 Hours Since Last Dose: 7 Renal Function: SCr 0.89 Renal Function Trend: NO NEW SCr YET TODAY Lab/Micro: Vancomycin Plan/Comments: KEEP SAME DOSE. TROUGH DRAWN AN HOUR EARLY SO IT WOULD HAVE BEEN LOWER IF DRAWN LATER BUT STILL IN GOAL RANGE. Pending Level: 01/31 930 Pharmacy Service will continue to monitor and adjust dosing as required. Follow-Up Labs Follow-Up Labs: Trough: Vancomycin Date/Time Labs Ordered Labs to be done on [date and time ordered]: 01/31/25 09:30
[2025-01-29 21:09] LABS: Creatinine, Serum 0.82 mg/dL (0.70-1.20); EST Glomerular Filtration Rate 90 (>60); Estimated Creatinine Clearance 120.19 ml/min (50-250)
[2025-01-30 02:55] VITALS: BP 117/58; PULSE 63; RESP 18; TEMP 36.7; O2SAT 99
[2025-01-30] MEDS: Vancomycin HCl 1,500 MG in 0.9% Normal Saline (500mL Bag) 500 ML 250 MG IV ×2 (03:00→10:40)
[2025-01-30] MEDS: Piperacil/Tazobactam 3.375 GM in 0.9% Normal Saline (50mL MB+) 50 ML IV (06:20)
--- NOTE | 2025-01-30 07:57 | PCM.PN.OB ---
Subjective Subjective feeling better, less swelling and drainage less form leg. afebrile. tolerating po. No chest pain shortness of breath pain controlled and decreasing Objective Data Objective Data Vital Signs: Vital Signs Temp Pulse Resp BP Pulse Ox O2 Del Method 98.1 F 63 18 117/58 L 99 Room Air 01/30/25 02:55 01/30/25 02:55 01/30/25 02:55 01/30/25 02:55 01/30/25 02:55 01/30/25 02:55 Oxygen Delivery Method Room Air Weight: 265 lb 6.985 oz Body Mass Index (BMI) 39.2 Intake & Output: Intake and Output for Last 24 Hours 01/28/25 01/29/25 01/30/25 23:59 23:59 23:59 Intake Total 635 / 635 3432.5 / 3432.5 1480 / 1480 Balance 635 / 635 3432.5 / 3432.5 1480 / 1480 Lab / Micro Data 01/29/25 04:47 01/29/25 16:35 Labs: Laboratory Results - last 24 hr 01/29/25 08:25: Urine Test Negative 01/29/25 16:29: Vancomycin Trough 19.1 H 01/29/25 16:35: Creatinine 0.82, Estim Creat Clear Calc 120.19, Est GFR (MDRD) Non-Af 90 Radiography Diagnostic Testing: Radiology Impression Pelvis CT 01/28/25 17:22 IMPRESSION: Right labial phlegmonous changes without a visualized drainable collection. Reading Location: [address] Constitutional Constitutional: Reports systems reviewed and no addt'l complaints, except as documented Cardiovascular Cardiovascular: Reports systems reviewed and no addt'l complaints, except as documented Respiratory/Chest Respiratory/Chest: Reports systems reviewed and no addt'l complaints, except as documented Gastrointestinal Gastrointestinal: Reports systems reviewed and no addt'l complaints, except as documented Physical Exam Const alert, oriented x3 and no apparent distress HEENT Head and Scalp: atraumatic Resp normal respiratory effort GI soft to palpation and non-tender Narrative: less drainage and more clear from leg, right vulva less induration and smaller area but still firm, drainage significantly less and more clear in appearance from vulva also Assessment & Plan (1) Abscess of right thigh: (2) Cellulitis: (3) Abscess of labia: PLAN: Plan admit for IV antibiotics and monitoring, zosyn and vacn ordered. [facility] consulted and helping with dressing cahnges. Culture results reviewed and stable for discharge to home on Bactrim and Flagyl. Follow-up in the office on Tuesday.
[2025-01-30 08:21] VITALS: BP 132/87; PULSE 63; RESP 16; TEMP 37.3; O2SAT 96
[2025-01-30] MEDS: HYDROmorphone 1 MG/ML Syringe IV (08:22)
[2025-01-30] MEDS: Lidocaine/Prilocaine HCl 5 GM Tube TOPICAL (08:24)
[2025-01-30] MEDS: Docusate Sodium 100 MG Capsule PO (08:24)
[2025-01-30] MEDS: 0.9% Saline Lock 10 ML Syringe IV (08:24)
[2025-01-30] MEDS: Ondansetron 4 MG/2 ML Vial IV (08:24)
[2025-01-30] MEDS: Pantoprazole Sodium 40 MG Tablet PO (08:24)
[2025-01-30] MEDS: Ibuprofen 400 MG Tablet PO (08:44)
--- NOTE | 2025-01-30 09:12 | WOUNDNOTE ---
In to reassess wounds with Dr Newell this am. Induration and redness has improved today. still some drainage noted. plan is for discharge home later today. pt denies any questions or concerns. plan for follow up with Dr Newell on Tuesday in the office.
--- NOTE | 2025-01-30 09:30 | DCINST_ITS ---
Discharge Instructions Diet Discharge Diet: No restrictions DC O2, CPAP, BIPAP needs Home O2 Discharge instructions: No Dressing / Incision Discharge Activity: Return to Normal Activity (return to work end of next week), May Drive and May Shower May resume sexual activity in: 4-6 weeks Additional Activity Instructions:: wound care instructions as discussed Dressing / Incision Call your doctor if you observe: Fever of 101 or Higher, Coldness, Increased Pain, Chest pain, Calf discomfort and Uncontrolled pain Follow Up Care Please Follow Up With: Liliana Newell MD When: tuesday call office for appointment Test Results: Test results from this visit will be discussed in further detail at your follow- up appointment, if applicable. Discharge Plan Admission Admit Date/Time: 01/28/25 18:09 Attending Provider: Liliana Newell Primary Care Provider: Robert Friend Discharge Orders/Prescriptions Prescriptions: New sulfamethoxazole-trimethoprim [Bactrim DS] 800-160 mg tablet 1 tab PO BID Qty: 20 0RF metronidazole 500 mg tablet 500 mg PO BID 10 Days Qty: 20 0RF No Action multivit with min-folic acid [Adult Multivitamin Gummies] 200 mcg tablet,chewable 1 tab PO DAILY acyclovir 200 mg capsule 200 mg PO TID PRN (Reason: HSV) pantoprazole 40 mg tablet,delayed release (DR/EC) 40 mg PO QDAY Qty: 90 1RF Rx Instructions: take on an empty stomach once daily naproxen sodium [Aleve] 220 mg capsule 220 mg PO QDAY PRN (Reason: pain) albuterol sulfate 90 mcg/actuation HFA aerosol inhaler 2 puff inhalation Q4H PRN PRN (Reason: wheezing) amoxicillin-pot clavulanate 875-125 mg tablet 1 tab PO BID Qty: 14 0RF sulfamethoxazole-trimethoprim 800-160 mg tablet 1 tab PO BID Qty: 14 0RF epinephrine [EpiPen] 0.3 mg/0.3 mL auto-injector 0.3 mg IM Q10M PRN PRN (Reason: anaphylaxis) Rx Instructions: for 2 doses Referrals / Follow Up: Robert Friend MD [Primary Care Provider] - Disposition Disposition (needs filled in before D/C Order can be placed): Home, Self Care
--- NOTE | 2025-01-30 09:34 | PCM.DC.SUM ---
Providers Date of Admission: 01/28/25 Primary Care Physician: Dr. Robert Friend MD Reason For Visit: RIGHT LABIAL ABSCESS W/ CELLULITIS Diagnosis Discharge Diagnosis (1) Abscess of right thigh: Status: Acute Code(s): L02.415 - Cutaneous abscess of right lower limb (2) Cellulitis: Status: Acute Code(s): L03.90 - Cellulitis, unspecified (3) Abscess of labia: Status: Acute Code(s): N76.4 - Abscess of vulva Plan admit for IV antibiotics and monitoring, zosyn and vacn ordered. [facility] consulted and helping with packing and dressing cahnges. 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 10/02/24 pantoprazole 40 mg tablet,delayed release 40 mg PO QDAY #90 tabs 10/02/24 naproxen sodium 220 mg capsule (Aleve) 220 mg PO QDAY PRN pain 10/23/24 albuterol sulfate 90 mcg/actuation aerosol inhaler 2 puff inhalation Q4H PRN PRN wheezing 01/21/25 amoxicillin 875 mg-potassium clavulanate 125 mg tablet 1 tab PO BID #14 tabs 01/25/25 sulfamethoxazole 800 mg-trimethoprim 160 mg tablet 1 tab PO BID #14 TABLETS 01/25/25 epinephrine 0.3 mg/0.3 mL injection, auto-injector (EpiPen) 0.3 mg IM Q10M PRN PRN anaphylaxis 01/28/25 metronidazole 500 mg tablet 500 mg PO BID 10 days #20 tabs 01/30/25 sulfamethoxazole 800 mg-trimethoprim 160 mg tablet (Bactrim DS) 1 tab PO BID #20 tabs 01/30/25 Hospital Course Summary of Care Provided Hospital Course: Patient was admitted for worsening vulvar abscess and right thigh abscess. Both were spontaneously draining and CT scan just showed phlegmon. After 48 hours of IV antibiotics there was significant improvement in the areas and culture showed MRSA sensitive to Bactrim. Patient was stable for discharge to home. Wound care nurse had seen her on the floor while she was admitted and agreed. Patient remained afebrile during admission. Patient will be discharged home on Bactrim and Flagyl and will follow-up in the office on Tuesday. Weight / BMI Weight Weight: 265 lb 6.985 oz Body Mass Index (BMI) 39.2 ABG / Lab / Microbiology Data 01/29/25 04:47 01/29/25 16:35 Laboratory: Laboratory Results - last 24 hr 01/29/25 16:29: Vancomycin Trough 19.1 H 01/29/25 16:35: Creatinine 0.82, Estim Creat Clear Calc 120.19, Est GFR (MDRD) Non-Af 90 D/C Instructions Discharge Diet: No restrictions May resume sexual activity in: 4-6 weeks Additional Activity Instructions: wound care instructions as discussed Call your doctor if you observe: Fever of 101 or Higher, Coldness, Increased Pain, Chest pain, Calf discomfort and Uncontrolled pain DC O2, CPAP, BIPAP Needs Home O2 Discharge instructions: No Please Follow Up With: Liliana Newell MD When: tuesday call office for appointment Meaningful Use Info Meaningful Use Meaningful Use Diagnoses (Choose all that apply): None applicable Ischemic Stroke Statin Dosing Therapy Reference: STATIN DOSE THERAPY REFERENCE: * Patients > 75 years receive moderate or high dose statin therapy. * Patients 75 years or YOUNGER should receive HIGH intensity statin dose unless contraindicated. You will be required to document reason for non-treatment if statin daily dose does not meet guidelines. HIGH DOSE STATIN THERAPY DAILY Atorvastatin > than or = to 40 mg Rosuvastatin > than or = to 20 mg Amlodipine + Atorvastatin > than or = to 2.5/40 mg Ezetimibe + Simvastatin 10/80 mg Simvastatin 80mg Discharge Plan Admission Admit Date/Time: 01/28/25 18:09 Attending Provider: Liliana Newell Primary Care Provider: Robert Friend Discharge Orders/Prescriptions Prescriptions: New sulfamethoxazole-trimethoprim [Bactrim DS] 800-160 mg tablet 1 tab PO BID Qty: 20 0RF metronidazole 500 mg tablet 500 mg PO BID 10 Days Qty: 20 0RF No Action multivit with min-folic acid [Adult Multivitamin Gummies] 200 mcg tablet,chewable 1 tab PO DAILY acyclovir 200 mg capsule 200 mg PO TID PRN (Reason: HSV) pantoprazole 40 mg tablet,delayed release (DR/EC) 40 mg PO QDAY Qty: 90 1RF Rx Instructions: take on an empty stomach once daily naproxen sodium [Aleve] 220 mg capsule 220 mg PO QDAY PRN (Reason: pain) albuterol sulfate 90 mcg/actuation HFA aerosol inhaler 2 puff inhalation Q4H PRN PRN (Reason: wheezing) amoxicillin-pot clavulanate 875-125 mg tablet 1 tab PO BID Qty: 14 0RF sulfamethoxazole-trimethoprim 800-160 mg tablet 1 tab PO BID Qty: 14 0RF epinephrine [EpiPen] 0.3 mg/0.3 mL auto-injector 0.3 mg IM Q10M PRN PRN (Reason: anaphylaxis) Rx Instructions: for 2 doses Referrals / Follow Up: Robert Friend MD [Primary Care Provider] - Disposition Disposition (needs filled in before D/C Order can be placed): Home, Self Care
[2025-01-30 14:09] VITALS: BP 125/69; PULSE 61; RESP 16; TEMP 36.7; O2SAT 100
== END 2025-01-30 15:26 | disposition home or self-care (01) | DRG 603 ==
LOC: ED 18:06 → MS3 01-29 07:22
PROVIDERS: Student in an Organized Health Care Education/Training Program; Admitting Provider Obstetrics & Gynecology; Emergency Provider Emergency Medicine; PCP Family Medicine; Visit Provider Obstetrics & Gynecology
DX: L02.415 Cutaneous abscess of right lower limb (principal); N76.4 Abscess of vulva; B95.62 Methicillin resistant Staphylococcus aureus infection as the cause of diseases classified elsewhere; Z99.81 Dependence on supplemental oxygen; K21.9 Gastro-esophageal reflux disease without esophagitis; G47.30 Sleep apnea, unspecified; L03.115 Cellulitis of right lower limb; Z87.891 Personal history of nicotine dependence; Z79.899 Other long term (current) drug therapy
CPT/HCPCS: 36415; 72193; 80048; 80202; 81025; 82565; 85025; 93005; 99284; Q9967; A4216; J2405

== ENCOUNTER → 2025-01-28 | Outpatient (CLI) | payer OTHER, SELFPAY | END | disposition home or self-care (01) | LOC: LABSPEC 16:34 | PROVIDERS: PCP Family Medicine; Referring Provider Obstetrics & Gynecology; Visit Provider Obstetrics & Gynecology | DX: L02.415 Cutaneous abscess of right lower limb (principal) | CPT/HCPCS: 87070; 87077; 87186; 87205 ==